=== PATIENT | female | born 1965 | race Caucasian/White ===

== ENCOUNTER 2018-06-27 13:07 | Inpatient (IN) ==
[2018-06-27] MEDS ORDERED: IOPAMIDOL 100 ML BOTTLE IV ONE (13:08)
[2018-06-27] MEDS ORDERED: ONDANSETRON 4 MG/2 ML VIAL IV ONE (13:32)
[2018-06-27] MEDS ORDERED: 0.9 % SODIUM CHLORIDE 1,000 ML IV ONE (13:33)
[2018-06-27 14:28] LABS: ALT/SGPT 12 U/l (0-40); Albumin 2.7 gm/dL (3.2-5.2); Albumin/Globulin Ratio 0.5 (1.0-2.3); Alkaline Phosphatase 139 U/L (39-117); Blood Urea Nitrogen 12 mg/dl (6-20); C-Reactive Protein 18.9 mg/dl (0.0-0.8)
--- NOTE | 2018-06-27 14:56 | Cat Scan Report ---
CLINICAL INFORMATION: Bladder full ulcer over the second metatarsal head COMPARISON: None. TECHNIQUE: 0.625 mm helical slices were obtained through the left foot and ankle. Following reconstruction, 2.50 sagittal coronal axial reformatted images were processed and reviewed at bone and soft tissue windows. FINDINGS: There is a 16 mm plantar cutaneous ulceration in the second metatarsal head region which extends through all the plantar soft tissues the second MTP joint region. A 12 mm region of complete osteolysis last fragmentation of the second proximal phalanx base with a 8 mm focal erosion of the plantar second metatarsal head both compatible osteomyelitis. Probable septic arthritis of the second MTP joint demonstrates effusion and small amount of intra-articular gas. No other regions of infection appreciated. Mild deformity of the third proximal phalanx indicating a fracture - age indeterminate. Small remote avulsion fracture off the dorsal cortex of the talar neck is noted. There is calcification of the plantar and Achilles tendon insertion on the calcaneus. Mild hallux valgus, metatarsus abductus and hammertoe deformities of second through fifth digits also noted. Diffuse soft tissue swelling around the forefoot, including small amounts of gas in the deep fascia surrounding the second MTP, is compatible cellulitis IMPRESSION: 1. 12 mm focus of osteolysis in the second proximal phalanx base with 8 mm focus of osteolysis in the plantar surface of the adjacent second metatarsal head most compatible with osteomyelitis. It is adjacent to a 16 mm cutaneous plantar ulcer which extends all the way to the second MTP joint space. Second MTP septic arthritis is noted and diffuse forefoot cellulitis. Gas seen in the adjacent soft tissues either atmospheric or, less likely, due to anaerobic infection. 2. Fracture of the third proximal phalanx likely chronic 3. Diffuse osteoporosis 4. Moderate hallux valgus, metatarsus abductus and second through fifth hammertoe deformities. Interpreted and Authenticated by: Wilber Campos 06/27/18
--- NOTE | 2018-06-27 15:04 | Emergency Department Note ---
Extremity Problem HPI - General Chief complaint: Extremity Problem,Nontraumatic Stated complaint: Left foot ulcer Time Seen by Provider: 06/27/18 13:30 Source: patient Mode of arrival: ambulatory Limitations: no limitations - History of Present Illness HPI Narrative: 52-year-old female in ED with present. Patient originally stepped on a tack (left foot between great toe and 2nd phalanx) approximately four to four an half weeks ago. Patient did not notice infection had begun until 2 to 2 an half weeks ago this is when she began seen Dr. Espinoza. Patient has been followed by Dr. Espinoza who began treating left foot for infection with antibiotics and debridement, the patient returned and it appeared that infection was spreading. X-ray was taken at that time and debridement (3rd debridement occurred) went from bottom to top of foot and flushed straight through. 3 days after that patient returned and was started on a second dose of antibiotics Cipro/ clindamycin. Patient then returned 3 days later the infection is now in her great toe and spreading up the foot. Dr. Trammell advised patient to come to [facility] and have Dr. Chu assess her infection. Patient is diabetic with insulin dependence uncontrolled, and takes citalopram for depression. Patient is obese. Patient is allergic to Dilaudid. Patient does have past history of being on vancomycin 3 years ago for left foot infection at that time. MD Complaint: extremity pain, extremity swelling, joint swelling, joint paint Onset (ago): month(s) (1) Consistency: constant Location: left, lower extremity (foot) Quality: stabbing (great toe) Radiation: none Improves with: nothing Associated symptoms: Reports: denies other symptoms - Related Data Home Medications Medication Instructions Recorded Confirmed Escitalopram [Lexapro] 20 mg PO DAILY 06/27/18 06/27/18 Glimepiride [Amaryl] 2 mg PO DAILY 06/27/18 06/27/18 Insulin Glargine, Human [Lantus] 30 unit SQ BID 06/27/18 06/27/18 Lisinopril [Zestril] 20 mg PO DAILY 06/27/18 06/27/18 buPROPion [Wellbutrin Xl] 150 mg PO DAILY 06/27/18 06/27/18 Allergies Allergy/AdvReac Type Severity Reaction Status Date / Time Hydromorphone [From Dilaudid] Allergy Verified 06/27/18 13:08 Review of Systems All systems ED: reviewed and negative except as stated. 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 Patient is and lives at home with . Physical Exam Limitations: no limitations General appearance: alert, in no apparent distress Head: atraumatic, normocephalic, normal inspection Eye: Present: normal appearance, PERRL. Absent: conjunctival injection ENT: normal exam, normal oropharynx, mucous membranes moist, normal external ear exam Neck: Present: normal inspection. Absent: tenderness, lymphadenopathy Chest: Present: normal inspection, symmetric chest wall rise. Absent: tenderness Respiratory: Present: normal lung sounds bilaterally. Absent: respiratory distress, rales/crackles, wheezes Cardiovascular: Present: regular rate, normal rhythm Foot/toe: Present: other (left foot open wound 4 cm in between great toe and second phalanx, open for debridement. Pustule drainage, pink tissue with granulation. Great toe with erythema also open areas draining pustule fluid increased edema to great toe.) Gait: not tested/not observed Back: Present: normal inspection Neurological: Present: alert, oriented X3, normal gait Psychiatric: Present: normal affect, normal mood. Absent: depressed, agitated, anxious Skin: Present: warm, dry, intact, normal color, other (see extremity). Absent: cyanosis, diaphoresis, erythema Course Vital Signs Temperature 97.6 F 06/27/18 13:11 Pulse Rate 77 06/27/18 13:11 Respiratory Rate 18 06/27/18 13:11 Blood Pressure 127/82 06/27/18 13:11 Pulse Oximetry (%) 91 06/27/18 13:11 Temperature 97.6 F 06/27/18 13:11 Pulse Rate 74 06/27/18 15:00 Respiratory Rate 18 06/27/18 13:11 Blood Pressure 110/65 06/27/18 14:49 Pulse Oximetry (%) 96 06/27/18 15:00 Extremity Problem, Nontraumati - [facility] Narrative Medical decision making narrative: Dr. Trammell referred Dr. Chu to this case, consulted Dr. Chu who graciously accepted seeing patient after clinic hours. Consulted Dr. Castellon who accepted to begin inpatient workup until was able to access. - Lab Data Lab results reviewed: Yes I reviewed the patient's lab results. Result diagrams: 06/27/18 14:37 06/27/18 13:36 Lab Results 06/27/18 06/27/18 06/27/18 Range/Units 13:36 13:37 13:40 POC Hct 43.0 (36.0-48.0) % Band Neutrophils % ESR 98 H (0-20) mm/hr VBG Lactic Acid 1.4 (0.5-2.2) mmol/L POC Sodium 138 (133-145) mmol/L Sodium 135 (133-145) mmol/L POC Potassium 4.2 (3.3-5.1) mmol/L Potassium 4.3 (3.3-5.1) mmol/L POC Chloride 100 (96-108) mmol/L Chloride 97 (96-108) mmol/L Carbon Dioxide 25 (22-30) mmol/L POC Total CO2 27 (22-30) mmol/L Anion Gap 13.0 (8-16) POC BUN 13 (6-20) mg/dl BUN 12 (6-20) mg/dl Creatinine 0.8 (0.6-1.1) mg/dl POC Creatinine 0.7 (0.6-1.1) mg/dl GFR Calculation 84 Glucose 282 H (70-105) mg/dL POC Glucose 292 H (70-105) mg/dL Calcium 8.5 L (8.6-10.4) mg/dl POC WB Ioniz Calcium 1.06 L (1.16-1.32) mmol/L Total Bilirubin 0.3 (0.0-1.0) mg/dL AST 14 (0-37) U/l ALT 12 (0-40) U/l Alkaline Phosphatase 139 H (39-117) U/L C-Reactive Protein 18.9 H (0.0-0.8) mg/dl Total Protein 7.9 (5.9-8.4) gm/dL Albumin 2.7 L (3.2-5.2) gm/dL Globulin 5.2 H (2.2-3.7) gm/dL Albumin/Globulin Ratio 0.5 L (1.0-2.3) 06/27/18 Range/Units 14:37 POC Hct (36.0-48.0) % Band Neutrophils % Not Reportable ESR (0-20) mm/hr VBG Lactic Acid (0.5-2.2) mmol/L POC Sodium (133-145) mmol/L Sodium (133-145) mmol/L POC Potassium (3.3-5.1) mmol/L Potassium (3.3-5.1) mmol/L POC Chloride (96-108) mmol/L Chloride (96-108) mmol/L Carbon Dioxide (22-30) mmol/L POC Total CO2 (22-30) mmol/L Anion Gap (8-16) POC BUN (6-20) mg/dl BUN (6-20) mg/dl Creatinine (0.6-1.1) mg/dl POC Creatinine (0.6-1.1) mg/dl GFR Calculation Glucose (70-105) mg/dL POC Glucose (70-105) mg/dL Calcium (8.6-10.4) mg/dl POC WB Ioniz Calcium (1.16-1.32) mmol/L Total Bilirubin (0.0-1.0) mg/dL AST (0-37) U/l ALT (0-40) U/l Alkaline Phosphatase (39-117) U/L C-Reactive Protein (0.0-0.8) mg/dl Total Protein (5.9-8.4) gm/dL Albumin (3.2-5.2) gm/dL Globulin (2.2-3.7) gm/dL Albumin/Globulin Ratio (1.0-2.3) - Radiology Data Radiology results reviewed: Yes I reviewed the patient's radiology results. 1. 12 mm focus of osteolysis in the second proximal phalanx base with 8 mm focus of osteolysis in the plantar surface of the adjacent second metatarsal head most compatible with osteomyelitis. It is adjacent to a 16 mm cutaneous plantar ulcer which extends all the way to the second MTP joint space. Second MTP septic arthritis is noted and diffuse forefoot cellulitis. Gas seen in the adjacent soft tissues either atmospheric or, less likely, due to anaerobic infection. 2. Fracture of the third proximal phalanx likely chronic 3. Diffuse osteoporosis 4. Moderate hallux valgus, metatarsus abductus and second through fifth hammertoe deformities. Disposition Pt seen by PRODUCTION CONTROL SUPERVISOR/PA only: No (Chin) Clinical Impression: Osteomyelitis of foot, left, acute Disposition: Xfer As Inpt ([facility]) Condition: Fair Referrals: Yvonne Palm MD [Primary Care Provider] - Time of Disposition: 15:41
[2018-06-27 15:50] LABS: Mean Corpuscular HGB Conc 34.7 g/dL (31.0-36.0); Mean Corpuscular Hemoglobin 28.1 pg (26.0-34.0); Platelet Count 287 K/mcL (140-440); RBC 4.54 M/mcL (4.00-5.20); Red Cell Distribution Width 13.5 % (11.5-14.5)
[2018-06-27 15:54] LABS: Band Neutrophils % 6 % (0-10); Basophils % (Manual) 1 % (0-2); Lymphocytes % 11 % (15-49); Monocytes % (Manual) 8 % (1-12); Platelet Estimate NORMAL (NORMAL); RBC Morphology NORMAL (NORMAL); Segmented Neutrophils % 74 % (38-78)
--- NOTE | 2018-06-27 16:05 | Emergency Department Note ---
ED Note Addendum Note Addendum: Wound examined and laboratory tests reviewed and agree with diagnosis Dr. Cardenas contacted by Erika patient to be admitted for further evaluation and treatment
[2018-06-27] MEDS ORDERED: NALOXONE HCL 0.4 MG/ML VIAL IV PRN (16:08)
[2018-06-27] MEDS ORDERED: ALBUTEROL SULFATE 2.5 MG/3 ML NEBULIZER NEB PRN (16:08)
[2018-06-27] MEDS ORDERED: DEXTROSE 31 GM ORAL.SUSP PO PRN (16:15)
[2018-06-27] MEDS ORDERED: DEXTROSE 50% 50 ML VIAL IV PRN (16:15)
[2018-06-27] MEDS ORDERED: VANCOMYCIN PER PHARMACY IV SCH (16:24)
--- NOTE | 2018-06-27 16:24 | Internal Med History&Physical ---
Medical - H&P: HPI Patient information: Note initiated : 06/27/18 at 4:16 pm Service Date, if different from initiated Date: [] Patient: Francesca Leon a 52 y/o F admitted on 06/27/18 for Left foot ulcer. Chief Complaint: [] History of present illness: Ms. Leon is a 52 year old F with h/o Dm, presents to the ER today with complaints of left foot pain. The patient notes approximately 6 weeks ago she stepped on attack, resulting in a puncture wound. Initially they were trying to clean the wound by local wound care, the patient's wound progressed and the patient was followed by Dr. Bender, The patient according to the aviation electronic warfare operator was walking with a tack in her shoe. The patient wound progressively got worse, with increasing redness swelling, increased smell. patient underwent debridement at his office, and was placed on doxycycline and ciprofloxacin, the patient notes that this did not help much and the swelling, infection continued to persist, the patient was started on clindamycin on 06/15/18. The patient on her follow up noted no significant improvement with worsening redness, discharge, patient was therefore asked to come to the hospital for IV antibiotics. The patient is accompanied by her , notes has DM, uncontrolled last a1c was 14. According to the notes of Dr Bender, pt has h/o MRSA Patient in the ER afebrile, HR 77, BP 111/68. 91% on RA Labs show WBC count of 16,800, hemoglobin 12.8 platelets 287. basic neg, glucose elevated to 282. ESR 98 CRP 18.9 and lactic acid is 1.4. Patient clinically appears quite stable is being admitted to the medical floor for further management. Dr Chu has been consulted who will be there to evaluate the patient. I spone with him and he will be here after clinic hours. The CT scan of the foot reviewed, there is gas noted in the tissues however the patient has an open ulcer and has had instrumentation done recently. She does have significant cellulitis positive drainage at this point. And is going to be evaluated by the surgeon soon. I do not believe that this is necrotizing fasciitis at this time given her hemodynamic stability and recent instrumentation which could easily explain the gas. She does have necrotizing soft tissue infection. All systems: reviewed and no additional remarkable complaints except as stated ( as per HPI rest negative) Medical - H&P: PM Medical history: Morbid obesity HTN HLD DM Surgical history: Cholecystectomy Pertinent family history: DM mother and sister Social history: smoker, quit 1 week ago ex etoh denies recretional drug use lives with . Medical - H&P: Meds Home Medications Medication Instructions Recorded Confirmed Type Escitalopram [Lexapro] 20 mg PO DAILY 06/27/18 06/27/18 History Glimepiride [Amaryl] 2 mg PO DAILY 06/27/18 06/27/18 History Insulin Glargine, Human [Lantus] 30 unit SQ BID 06/27/18 06/27/18 History Lisinopril [Zestril] 20 mg PO DAILY 06/27/18 06/27/18 History buPROPion [Wellbutrin Xl] 150 mg PO DAILY 06/27/18 06/27/18 History Allergies Allergy/AdvReac Type Severity Reaction Status Date / Time Hydromorphone [From Dilaudid] Allergy Verified 06/27/18 13:08 Medical - H&P: Exam - Constitutional Vitals: Temp Pulse Resp BP Pulse Ox 97.6 F 77 18 97/85 96 06/27/18 13:11 06/27/18 15:50 06/27/18 13:11 06/27/18 15:41 06/27/18 15:50 Exam: GENERAL: The patient is a well-developed, well-nourished in no apparent distress. Is alert and oriented x3. Morbidly obese VITAL SIGNS: Reviewed and as noted elsewhere. HEENT: Head is normocephalic and atraumatic. Extraocular muscles are intact. Pupils are equal, round, and reactive to light. Nares appeared normal. Mouth appears any without lesions. Mucous membranes are moist. NECK: Normal to inspection, Supple, No lymphadenopathy or thyromegaly. LUNGS: Air entry equal on both sides, no wheezing, crackles or rhonchi noted. No accessory muscles of respiration HEART: Regular rate and rhythm normal, S1 and S2 heard, no Gallop, S3 or Rub Noted, No Gross murmur heard. ABDOMEN: Soft, nontender, and nondistended. Positive bowel sounds. No hepatosplenomegaly was noted. EXTREMITIES: No cyanosis, clubbing, rash, lesions or edema. Left foot, edematous toes, erythema, open ulcer/ Surgical cut between first and second toe , 1st MT joint draining pus. putrid discharge. NEUROLOGIC: Cranial nerves II through XII are grossly intact. Motor and Sensory System Grossly Intact PSYCHIATRIC: Normal affect, Normal Mood. Appropriate Behavior. SKIN: No ulceration or wounds noted, No jaundice, No rash noted. Medical - H&P: Reslt - Labs CBC & Chem 7: 06/27/18 14:37 06/27/18 13:36 Labs: Short CBC 06/27/18 Range/Units 14:37 WBC 16.8 H (4.5-11.0) K/mcL Hgb 12.8 (12.0-15.0) g/dL Hct 36.8 (36.0-48.0) % Plt Count 287 (140-440) K/mcL BMP 06/27/18 13:36 Sodium 135 Potassium 4.3 Chloride 97 Carbon Dioxide 25 BUN 12 Creatinine 0.8 Glucose 282 H Calcium 8.5 L Liver Function 06/27/18 Range/Units 13:36 Total Bilirubin 0.3 (0.0-1.0) mg/dL AST 14 (0-37) U/l ALT 12 (0-40) U/l Alkaline Phosphatase 139 H (39-117) U/L Albumin 2.7 L (3.2-5.2) gm/dL Medical - H&P: A/P - Narrative A/P Narrative: A/P Diabetic, necrotizing soft tissue infection with acute osteomyelitis- CT reviewed, Podiatry consulted, Likely surgery in AM, pt is hemodynamically stable , has not responded to oral antibiotics, doxy and cipro initially and then nearly 12-13 days of oral clindamycin. Start with IV vancomycin and zosy ID to be consulted, Podiatry consulted. will likely need surgical debridement. Try to obtain culture reports DM uncontrolled - Check A1c, resume latnus and ssi insulin for glucose control HTN- resume home dosee of lisnoipril Depression/Anxiety- Resume citalopram/ buspirone DVT hep sq Diet carb consistent Ful code
--- NOTE | 2018-06-27 16:56 | Event Note ---
Full note to follow tomorrow Pt consulted this afternoon. Concerns for puncture wound associated osteomyelitis (Ct findings, elev ESR and CRP, failure to response to PO therapy) CT foot showed: "12 mm focus of osteolysis in the second proximal phalanx base with 8 mm focus of osteolysis in the plantar surface of the adjacent second metatarsal head most compatible with osteomyelitis. It is adjacent to a 16 mm cutaneous plantar ulcer which extends all the way to the second MTP joint space. Second MTP septic arthritis is noted and diffuse forefoot cellulitis. Gas seen in the adjacent soft tissues either atmospheric or, less likely, due to anaerobic infection. Fracture of the third proximal phalanx likely chronic" Agree with surgical eval Start IV Vanc with pharmacy-assisted dosing Start IV Zosyn 4.5 gm q6 hrs will deescalate once Cx data available Romario Domingo MD Infectious diseases
[2018-06-27] MEDS: INSULIN LISPRO 1 UNIT/0.01 ML UNIT SQ SCH ×2 (17:42→21:32)
[2018-06-27] MEDS: VANCOMYCIN 1,500 MG in 0.9 % SODIUM CHLORIDE 500 ML IV SCH (17:44)
[2018-06-27] MEDS ORDERED: PIPERACILLIN SODIUM/TAZOBACTAM 3.375 GM in DEXTROSE 5% IN WATER 50 ML IV SCH (18:00)
--- NOTE | 2018-06-27 18:00 | XRay Report ---
CLINICAL INFORMATION: preop COMPARISON: 12/18/2010. FINDINGS: Moderate cardiomegaly is unchanged. Mediastinum and pulmonary vessels are unremarkable. There is minor bibasilar scarring or atelectasis - no alfredo infiltrates or effusions IMPRESSION: Moderate stable cardiomegaly. No CHF or other acute process Interpreted and Authenticated by: Wilber Campos 06/27/18
[2018-06-27] MEDS: oxyCODONE HCL 5 MG TABLET PO PRN (19:28)
[2018-06-27] MEDS: PIPERACILLIN SODIUM/TAZOBACTAM 4.5 GM in DEXTROSE 5% IN WATER 50 ML IV SCH (19:28)
[2018-06-27] MEDS: HEPARIN 5,000 UNIT/ML VIAL SQ SCH (21:32)
[2018-06-27] MEDS: 0.9 % SODIUM CHLORIDE 10 ML SYRINGE IV SCH (21:33)
[2018-06-27] MEDS: INSULIN GLARGINE, HUMAN 1 UNIT/0.01 ML SQ SCH (21:33)
[2018-06-27] MEDS: SENNOSIDES 1 TABLET PO SCH (21:33)
[2018-06-28] MEDS: PIPERACILLIN SODIUM/TAZOBACTAM 4.5 GM in DEXTROSE 5% IN WATER 50 ML IV SCH ×5 (00:37→23:42)
[2018-06-28] MEDS: oxyCODONE HCL 5 MG TABLET PO PRN ×5 (00:43→23:41)
[2018-06-28] MEDS: ACETAMINOPHEN 325 MG TABLET PO PRN ×2 (05:38→19:23)
[2018-06-28] MEDS: 0.9 % SODIUM CHLORIDE 10 ML SYRINGE IV SCH ×3 (05:58→21:00)
[2018-06-28] MEDS: ONDANSETRON 4 MG/2 ML VIAL IV PRN (06:18)
[2018-06-28 06:38] LABS: Basophils # (Auto) 0.1 K/mcL (0.0-0.3); Basophils % (Auto) 0.4 % (0.0-2.0); Eosinophils # (Auto) 0.3 K/mcL (0.0-0.7); Eosinophils % (Auto) 2.2 % (0.0-7.0); Lymphocytes # (Auto) 1.5 K/mcL (1.5-4.8); Lymphocytes % (Auto) 9.9 % (15.5-49.0); Mean Cell Volume 84.1 fL (80.0-100.0); Mean Corpuscular HGB Conc 32.7 g/dL (31.0-36.0); Mean Corpuscular Hemoglobin 27.5 pg (26.0-34.0); Monocytes % (Auto) 6.5 % (1.0-12.0); Platelet Count 286 K/mcL (140-440); RBC 4.17 M/mcL (4.00-5.20); Red Cell Distribution Width 14.5 % (11.5-14.5)
[2018-06-28 07:10] LABS: ALT/SGPT 12 U/l (0-40); Albumin 2.6 gm/dL (3.2-5.2); Albumin/Globulin Ratio 0.6 (1.0-2.3); Alkaline Phosphatase 160 U/L (39-117); Bilirubin,Direct < 0.2 mg/dL (0.0-0.3); Blood Urea Nitrogen 13 mg/dl (6-20); Gamma Glutamyl Transpeptidase 16 U/L (5-36); Uric Acid 3.3 mg/dL (2.5-8.0)
--- NOTE | 2018-06-28 07:26 | Orthopedic History & Physical ---
History of Present Illness Patient information: Note initiated : 06/28/18 at 7:13 am Service Date, if different from initiated Date: [] Patient: Francesca Leon 52 y/o F admitted on 06/27/18 for Left foot ulcer. 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 6 week hx of first interspace infection thought to be a puncture wound after tack was found in pt's shoe, being treated by Dr Bender with woundcarea and oral antibiotics. Unfortunately, the foot has recently developed an fulminant infection with malodor, purulent drainage and erythema with calor extending from the first interspace including the second mpj over to the medial first with a second full thickness ulceration. The patient denies fever, nausea , chills and vomiting or night sweats. While the patient was being interviewed she began to vomit but feels this is from the anxiety from the information she was receiving from me. HPI: Ms. Leon is a 52 year old F see above Review of Systems Constitutional: as per HPI Past History Past medical history: DM with moderate neuropathy obesity HTN Past surgical history: cholecystecomy Past family history: mother and sister with DM Past social history: 10-15 pack year history no etoh or drugs Medications and Allergies Home Medications Medication Instructions Recorded Confirmed Type Escitalopram [Lexapro] 20 mg PO DAILY 06/27/18 06/27/18 History Glimepiride [Amaryl] 2 mg PO DAILY 06/27/18 06/27/18 History Insulin Glargine, Human [Lantus] 30 unit SQ HS 06/27/18 06/27/18 History Insulin Glargine, Human [Lantus] 40 unit SQ DAILY 06/27/18 06/27/18 History Lisinopril [Zestril] 20 mg PO DAILY 06/27/18 06/27/18 History buPROPion [Wellbutrin Xl] 150 mg PO DAILY 06/27/18 06/27/18 History Allergies Allergy/AdvReac Type Severity Reaction Status Date / Time Hydromorphone [From Dilaudid] Allergy Mild Rash Verified 06/27/18 16:36 Physical Examination - Ankle & Foot left Ankle appearance: swelling Foot appearance: erythema, other (bone probing infected ulceration of first interspace with marked malodor and drainage. bone probes to both first and second metatarsals midshafts. There is a full thickness ulceration on the medial side of the first MPJ. There is significant interspace tissue loss with atmospheric exposure. No crepitus is appreciated with pressure. The patient has sensory loss but feels pain in the foot with probing and palpation. The erythema and calor are localized to toes 1-4 and there is no streaking erythema) Foot swelling: dorsal (Pulses palpable with triphasic dopplers of both DP and PT arteries) Ankle pain worse with weight bearing: Yes Foot pain worse with weight bearing: Yes Foot pain relieved by non-weight bearing: Yes Tingling/Numbness: toes ROM: dorsiflexion: 30 degrees Results - Labs Result Diagrams: 06/28/18 04:28 06/28/18 04:28 Labs: Abnormal lab results 06/27/18 06/27/18 06/27/18 Range/Units 13:36 13:37 14:37 WBC 16.8 H (4.5-11.0) K/mcL Hgb (12.0-15.0) g/dL Hct (36.0-48.0) % MPV 10.6 H (7.4-10.4) fL Gran % (38.0-78.0) % Lymph % (Auto) (15.5-49.0) % Gran # (1.8-8.0) K/mcL [place] # (Auto) (0.1-0.9) K/mcL Lymphocytes % 11 L (15-49) % ESR 98 H (0-20) mm/hr Glucose 282 H (70-105) mg/dL POC Glucose 292 H (70-105) mg/dL Calcium 8.5 L (8.6-10.4) mg/dl POC WB Ioniz Calcium 1.06 L (1.16-1.32) mmol/L Phosphorus (2.7-4.5) mg/dL Alkaline Phosphatase 139 H (39-117) U/L C-Reactive Protein 18.9 H (0.0-0.8) mg/dl Albumin 2.7 L (3.2-5.2) gm/dL Globulin 5.2 H (2.2-3.7) gm/dL Albumin/Globulin Ratio 0.5 L (1.0-2.3) 06/28/18 06/28/18 Range/Units 04:28 04:28 WBC 15.1 H (4.5-11.0) K/mcL Hgb 11.4 L (12.0-15.0) g/dL Hct 35.0 L (36.0-48.0) % MPV (7.4-10.4) fL Gran % 81.0 H (38.0-78.0) % Lymph % (Auto) 9.9 L (15.5-49.0) % Gran # 12.2 H (1.8-8.0) K/mcL [place] # (Auto) 1.0 H (0.1-0.9) K/mcL Lymphocytes % (15-49) % ESR (0-20) mm/hr Glucose 52 L (70-105) mg/dL POC Glucose (70-105) mg/dL Calcium 8.4 L (8.6-10.4) mg/dl POC WB Ioniz Calcium (1.16-1.32) mmol/L Phosphorus 5.0 H (2.7-4.5) mg/dL Alkaline Phosphatase 160 H (39-117) U/L C-Reactive Protein (0.0-0.8) mg/dl Albumin 2.6 L (3.2-5.2) gm/dL Globulin 4.4 H (2.2-3.7) gm/dL Albumin/Globulin Ratio 0.6 L (1.0-2.3) H & H 06/27/18 06/28/18 Range/Units 14:37 04:28 Hgb 12.8 11.4 L (12.0-15.0) g/dL Hct 36.8 35.0 L (36.0-48.0) % All other labs normal. - Diagnostic results Ankle/Foot MRI: pending Ankle/Foot CT: report reviewed (i agree that the gas located in the first interspace is atmospheric. ) Assessment and Plan (1) Osteomyelitis of foot, left, acute Osteomyelitis of the left foot, first and second rays and possibly the third toe in diabetic with moderate neuropathy. I feel that the extent of this infection requires an MRI to determine if a partial first and second ray amputation will suffice or if a TMA will be required. MRI with and without contrast ordered. I will also have woundcare consulted for vascular studies and aid with probable wound care before after surgery. The pt and I discussed the nature of her severe foot infection and the need for the MRI. We discussed risks, alternatives, complications and course of the above amputation options and the possible need for further surgery. The wound was flushed with nss and betadine and a dsd was applied I will ask woundcare to perform this again today. Heel wb to bathroom and back left foot. Continue Vancomycin/Zosyn will follow wound culture taken yesterday in ER Surgery will be set for tomorrow morning. Status: Acute
[2018-06-28] MEDS: VANCOMYCIN 1,500 MG in 0.9 % SODIUM CHLORIDE 500 ML IV SCH ×2 (08:03→21:02)
[2018-06-28] MEDS: ESCITALOPRAM 20 MG TABLET PO SCH (10:52)
[2018-06-28] MEDS: buPROPion 150 MG TAB.XL.24H PO SCH (10:53)
[2018-06-28] MEDS: LISINOPRIL 20 MG TABLET PO SCH (10:53)
[2018-06-28] MEDS: HEPARIN 5,000 UNIT/ML VIAL SQ SCH ×2 (10:53→21:05)
[2018-06-28] MEDS: INSULIN LISPRO 1 UNIT/0.01 ML UNIT SQ SCH ×4 (10:54→21:48)
[2018-06-28] MEDS: INSULIN GLARGINE, HUMAN 1 UNIT/0.01 ML SQ SCH ×2 (10:54→21:06)
--- NOTE | 2018-06-28 12:38 | Magnetic Resonance Report ---
CLINICAL INFORMATION: Osteomyelitis - second ray. Evaluate extent COMPARISON: CT 06/27/2018. TECHNIQUE: Axial T1, T2, proton density, coronal proton density and sagittal T1 and proton density images were obtained the left foot and ankle. FINDINGS: There is severe osteolytic destruction of the second proximal phalanx epiphysis with increased signal extending into the the proximal one half of the diaphysis. There is also osteolytic destruction of the adjacent second metatarsal head with increased signal throughout the distal epiphysis and metaphysis. Findings compatible with osteomyelitis. Increased signal within the second MTP joint compatible with associated septic arthritis. No other regions of osteomyelitis appreciated throughout the foot and ankle. Marked thickening/enhancement and increased signal within the deep plantar fascial and also the dorsal fascia compatible with fasciitis. Moderate cellulitis in the plantar and dorsal subcutaneous soft tissues noted as well. 1.5 cm cutaneous ulceration overlying the second MTP joint has cellulitis extension through the plantar fascia to the second MTP joint. There is also a 3 x 2 cm fluid collection in the plantar fascia overlying the and adjacent to, the fifth MTP joint. No definite osteomyelitis or septic arthritis in this particular joint however. No other abnormality. IMPRESSION: Severe osteomyelitis involving the proximal half of the second proximal phalanx and also the adjacent fifth metatarsal head including the epiphysis and metaphysis. As noted on CT, there is actually osteolytic destruction of each regions. Septic arthritis the second MTP joint noted. There are no other regions of osteomyelitis throughout the foot or ankle. Severe plantar fasciitis and also cellulitis within the dorsal and plantar subcutaneous soft tissues of the forefoot. 3 mm cutaneous ulceration overlying the second MTP joint seen - as before 3 x 2 cm thin-walled fluid collection in the plantar fascia overlying the fifth MTP. Although it extends to the surface of the fifth MTP, there is no definite MRI evidence of osteomyelitis or septic arthritis. This may represent a sterile fluid collection such as a seroma or cyst. Interpreted and Authenticated by: Wilber Campos 06/28/18
--- NOTE | 2018-06-28 15:52 | Infectious Disease Consult ---
History of Present Illness Patient information: Note initiated : 06/28/18 at 3:45 pm Service Date, if different from initiated Date: [] Patient: Francesca Leon 52 y/o F admitted on 06/27/18 for Left Foot Ulcer. Chief Complaint: [] Consult date: 06/27/18 (Late evening) Requesting Physician: Liv Castellon Reason for Consult: Necrotizing soft tissue infection Chief complaint: I have a really bad wound on my foot History of present illness: 52-year-old lady with past medical history pertinent for: Type 2 diabetes, uncontrolled [not compliant with diet, physical activity] Peripheral neuropathy Patient was admitted on 06/27/18 with big nonhealing and worsening wound of left foot. All started about early May when patient by mistake stepped on a tack, followed by development of local wound infection with symptoms of redness, swelling, foul odor about 10 days later. Patient was seen by Dr. Bender who Did local debridement in his office and patient was placed on doxycycline initially and subsequently switched to ciprofloxacin because it did not get better and continued to get worse. She was switched to clindamycin on 06/15/18 because wound was continuing to worsen. Patient was asked to go to the hospital yesterday because of significant worsening of the wound and concerns that she may need IV antibiotics. Patient was afebrile in the ER with a normal heart rate and blood pressure setting 91% on room air. White cell count was 16.8 K with neutrophilic predominance, ESR 98, CRP 18.9, lactic acid 1.4, glucose 282. Patient was admitted to the [facility] unit and Dr. Chu was consulted for possible surgical evaluation. Patient had a CT scan of the foot done which showed: "12 mm focus of osteolysis in the second proximal phalanx base with 8 mm focus of osteolysis in the plantar surface of the adjacent second metatarsal head most compatible with osteomyelitis. It is adjacent to a 16 mm cutaneous plantar ulcer which extends all the way to the second MTP joint space. Second MTP septic arthritis is noted and diffuse forefoot cellulitis. Gas seen in the adjacent soft tissues either atmospheric or, less likely, due to anaerobic infection." Patient was started on IV vancomycin [pharmacy assisted monitoring] and IV Zosyn. Blood cultures and wound cultures were sent. At time of my visit today , patient had few episodes of vomiting in past 24 hours. She denied any fever, chills, diarrhea, left foot pain. She added that her blood sugars at home are uncontrolled and range around 300. She does take her diabetes medicines regularly. She denied any allergies to antibiotics. Review of Systems All systems PM: reviewed and no additional remarkable complaints except as stated Past History Past family history: Not pertinent to current presentation Past social history: Lives with her Smoker, quit 1 week ago Medications and Allergies Home Medications Medication Instructions Recorded Confirmed Type Escitalopram [Lexapro] 20 mg PO DAILY 06/27/18 06/27/18 History Glimepiride [Amaryl] 2 mg PO DAILY 06/27/18 06/27/18 History Insulin Glargine, Human [Lantus] 30 unit SQ HS 06/27/18 06/27/18 History Insulin Glargine, Human [Lantus] 40 unit SQ DAILY 06/27/18 06/27/18 History Lisinopril [Zestril] 20 mg PO DAILY 06/27/18 06/27/18 History buPROPion [Wellbutrin Xl] 150 mg PO DAILY 06/27/18 06/27/18 History Allergies Allergy/AdvReac Type Severity Reaction Status Date / Time Hydromorphone [From Dilaudid] Allergy Mild Rash Verified 06/27/18 16:36 Physical Examination Vital signs: Temp Pulse Resp BP Pulse Ox 36.3 C 66 15 131/72 93 06/28/18 12:00 06/28/18 12:00 06/28/18 12:00 06/28/18 12:00 06/28/18 12:00 General appearance: lethargic, appears uncomfortable Eyes pulmonary: nonicteric ENT: other (Has thrush) Neck: no lymphadenopathy Auscultation: bilateral: clear Cardiovascular: regular rate and rhythm Gastrointestinal: normoactive bowel sounds, soft, non-tender Extremities: other (Left foot: The forefoot appears swollen compared to the rest of the foot along with visible erythema. There is a big tunneling wound in between the great toe and the adjacent toe with foul-smelling order and visible pus with visible bone and tendons. Dorsalis pedis artery palpable) Results - Laboratory Findings CBC and BMP: 06/28/18 04:28 06/28/18 04:28 Abnormal lab findings: Abnormal Labs 06/27/18 06/27/18 06/27/18 13:36 13:37 14:37 WBC 16.8 H Hgb Hct MPV 10.6 H Gran % Lymph % (Auto) Gran # [place] # (Auto) Lymphocytes % 11 L ESR 98 H Glucose 282 H POC Glucose 292 H Calcium 8.5 L POC WB Ioniz Calcium 1.06 L Phosphorus Alkaline Phosphatase 139 H C-Reactive Protein 18.9 H Albumin 2.7 L Globulin 5.2 H Albumin/Globulin Ratio 0.5 L 06/28/18 06/28/18 04:28 04:28 WBC 15.1 H Hgb 11.4 L Hct 35.0 L MPV Gran % 81.0 H Lymph % (Auto) 9.9 L Gran # 12.[address] [place] # (Auto) 1.0 H Lymphocytes % ESR Glucose 52 L POC Glucose Calcium 8.4 L POC WB Ioniz Calcium Phosphorus 5.0 H Alkaline Phosphatase 160 H C-Reactive Protein Albumin 2.6 L Globulin 4.4 H Albumin/Globulin Ratio 0.6 L Microbiology: Microbiology 06/27/18 13:30 Blood Blood Culture - Preliminary 06/27/18 13:30 Blood Blood Culture - Preliminary 06/27/18 15:40 Foot - Left Gram Stain - Final 06/27/18 15:40 Foot - Left Wound Culture - Preliminary Strep agalactiae - (group b) Assessment and Plan - Narrative A/P Narrative: Assessment: 1. Complicated skin and soft tissue infection of the left foot with involvement of underlying bone and muscles at multiple levels: Preliminary wound cultures growing group B strep, which is in known pathogen in diabetic infections On IV vancomycin and Zosyn Waiting for surgery tomorrow morning 2. No sepsis 3. Uncontrolled diabetes with peripheral neuropathy Recommendations: Continue IV vancomycin [pharmacy assisted monitoring]. Check trough before the fourth dose [10-20] Continue IV Zosyn 4.5 g every 6 hours. If the cultures suggest no Pseudomonas , will de-escalate it to 3.375 g every 6 Strongly agree with surgical debridement tomorrow morning. If any clinical worsening happens tonight, would recommend patient undergoing urgent surgery. Send operative samples for Gram stain and culture sensitivity For optimal outcomes will need long-term diabetes control [random blood glucose less than 180] and smoking cessation Patient would need long-term antibiotics [4-6 weeks of IV] We will follow while inpatient Romario Domingo MD Infectious disease
[2018-06-28] MEDS ORDERED: LORazepam 0.5 MG TABLET PO ONE (16:24)
[2018-06-28] MEDS ORDERED: LORazepam 0.5 MG TABLET PO PRN (16:24)
--- NOTE | 2018-06-28 18:21 | Internal Med Progress Note ---
Medical - PN: Subj Patient information: Note initiated : 06/28/18 at 6:18 pm Service Date, if different from initiated Date: [] Patient: Francesca Leon a 52 y/o F admitted on 06/27/18 for Left Foot Ulcer. Chief Complaint: [] Interval history: Ms. Leon is a 52 year old F with h/o Dm, presents to the ER today with complaints of left foot pain. The patient notes approximately 6 weeks ago she stepped on attack, resulting in a puncture wound. Initially they were trying to clean the wound by local wound care, the patient's wound progressed and the patient was followed by Dr. Bender, The patient according to the embedded software engineer was walking with a tack in her shoe. The patient wound progressively got worse, with increasing redness swelling, increased smell. patient underwent debridement at his office, and was placed on doxycycline and ciprofloxacin, the patient notes that this did not help much and the swelling, infection continued to persist, the patient was started on clindamycin on 06/15/18. The patient on her follow up noted no significant improvement with worsening redness, discharge, patient was therefore asked to come to the hospital for IV antibiotics. The patient is accompanied by her , notes has DM, uncontrolled last a1c was 14. According to the notes of Dr Bender, pt has h/o MRSA Patient in the ER afebrile, HR 77, BP 111/68. 91% on RA Labs show WBC count of 16,800, hemoglobin 12.8 platelets 287. basic neg, glucose elevated to 282. ESR 98 CRP 18.9 and lactic acid is 1.4. Patient clinically appears quite stable is being admitted to the medical floor for further management. Dr Chu has been consulted who will be there to evaluate the patient. I spone with him and he will be here after clinic hours. The CT scan of the foot reviewed, there is gas noted in the tissues however the patient has an open ulcer and has had instrumentation done recently. She does have significant cellulitis positive drainage at this point. And is going to be evaluated by the surgeon soon. I do not believe that this is necrotizing fasciitis at this time given her hemodynamic stability and recent instrumentation which could easily explain the gas. She does have necrotizing soft tissue infection. 06/28 Patient seen and examined no acute overnight events. Wound was in dressing today. She has no acute complaints or concerns. Glucose level high yesterday better today. MRI done today shows severe osteomyelitis cellulitis. Likely plan for surgery tomorrow. Ongoing vancomycin and Zosyn appreciate podiatry and infectious disease input Pertinent ROS: Denies headache, dizziness Denies chest pain, palpitations Denies cough or shortness of breath Denies abdominal pain, nausea or vomiting. - Constitutional Vitals: Vital Signs Temp Pulse Resp BP Pulse Ox 97.1 F 74 17 128/75 95 06/28/18 15:58 06/28/18 15:58 06/28/18 15:58 06/28/18 15:58 06/28/18 15:58 Period Temp Pulse Resp BP Sys/Carrillo Pulse Ox Last 24 Hr 97.1 F-99.1 F 66-82 14-17 114-138/60-84 92-96 Intake and Output 06/28/18 06/28/18 06/28/18 05:59 13:59 21:59 Intake Total 780 / 780 550 / 550 500 / 500 Output Total 1200 / 1200 400 / 400 Balance -420 / -420 550 / 550 100 / 100 Weight 322 lb 8 oz Patient Weight 06/29/18 05:59 Weight 322 lb 8 oz Intake & Output: Intake & Output 06/28/18 06/28/18 06/28/18 05:59 13:59 21:59 Intake Total 780 / 780 550 / 550 500 / 500 Output Total 1200 / 1200 400 / 400 Balance -420 / -420 550 / 550 100 / 100 Weight 322 lb 8 oz Intake: IV 50 / 50 550 / 550 50 / 50 Zosyn 4.5 gm In Dextrose 5% in 50 / 50 50 / 50 50 / 50 Water 50 ml @ 100 mls/hr IV Q6H [facility] Rx#:[id number] Vancomycin 1,500 mg In Sodium 500 / 500 Chloride 0.9% 500 ml @ 333.3 mls/hr IV Q12H [facility] Rx#: [id number] Oral 730 / 730 450 / 450 Output: Void Amount 1200 / 1200 400 / 400 Other: Urine Appearance Clear Urine Color Dark Yellow Urine Odor Normal Exam: Constitutional; Afebrile, cooperative, alert, not in distress. morbidly obese Respiratory system: Air Entry equal on both sides, No crackles or wheezing, no rhonchi. CVS- Rate rhythm regular, S1,S2 heard, no gallop, no rub. Abdomen- Soft nontender abdomen, no organomegaly, no tenderness, no guarding or rigidity, TECHNICAL SUPPORT ANALYST- AOOx3, moving all extremities, no gross focal deficit noted. Medical - PN: Obj Da - Labs CBC & Chem 7: 06/28/18 04:28 06/28/18 04:28 Labs: Abnormal Lab Results 06/28/18 06/28/18 06/27/18 04:28 04:28 14:37 WBC 15.1 H 16.8 H Hgb 11.4 L Hct 35.0 L MPV 10.6 H Gran % 81.0 H Lymph % (Auto) 9.9 L Gran # 12.2 H [place] # (Auto) 1.0 H Lymphocytes % 11 L ESR Glucose 52 L POC Glucose Calcium 8.4 L POC WB Ioniz Calcium Phosphorus 5.0 H Alkaline Phosphatase 160 H C-Reactive Protein Albumin 2.6 L Globulin 4.4 H Albumin/Globulin Ratio 0.6 L 06/27/18 06/27/18 13:37 13:36 WBC Hgb Hct MPV Gran % Lymph % (Auto) Gran # [place] # (Auto) Lymphocytes % ESR 98 H Glucose 282 H POC Glucose 292 H Calcium 8.5 L POC WB Ioniz Calcium 1.06 L Phosphorus Alkaline Phosphatase 139 H C-Reactive Protein 18.9 H Albumin 2.7 L Globulin 5.2 H Albumin/Globulin Ratio 0.5 L Meds: Medications Acetaminophen (Tylenol) 650 mg PO Q6HP PRN PRN Reason: PAIN/FEVER > 101 Last Admin: 06/28/18 05:38 Dose: 650 mg Albuterol Sulfate (Ventolin) 2.5 mg NEB Q2HP PRN PRN Reason: Shortness Of Breath Bupropion HCl (Wellbutrin Xl) 150 mg PO DAILY [facility] Last Admin: 06/28/18 10:53 Dose: 150 mg Dextrose (Dextrose 50%) 0 ml IV UD PRN PRN Reason: Hypoglycemia Diagnostic Test (Pha) (Accu-Chek) 1 each FS ACHS [facility] Last Admin: 06/28/18 17:00 Dose: 1 each Escitalopram Oxalate (Lexapro) 20 mg PO DAILY [facility] Last Admin: 06/28/18 10:52 Dose: 20 mg Glucose (Insta-Glucose) 15 gm PO PRN PRN PRN Reason: Hypoglycemia Heparin Sodium (Porcine) (Heparin) 5,000 unit SQ Q12 [facility] Last Admin: 06/28/18 10:53 Dose: 5,000 unit Vancomycin HCl 1,500 mg/ (Sodium Chloride) 500 mls @ 333.3 mls/hr IV Q12H [facility] Last Infusion: 06/28/18 10:30 Dose: Infused Piperacillin Sod/Tazobactam (Sod 4.5 gm/ Dextrose) 50 mls @ 100 mls/hr IV Q6H [facility] Last Admin: 06/28/18 17:01 Dose: 100 mls/hr Insulin Glargine (Lantus) 30 unit SQ BID [facility] Last Admin: 06/28/18 10:54 Dose: 30 unit Insulin Human Lispro (Humalog) 0 unit SQ ACHS [facility]; Protocol Last Admin: 06/28/18 17:00 Dose: Not Given Lisinopril (Zestril) 20 mg PO DAILY [facility] Last Admin: 06/28/18 10:53 Dose: 20 mg Lorazepam (Ativan) 0.5 mg PO HSP PRN PRN Reason: ANXIETY/SEDATION Naloxone HCl (Narcan) 0.1 mg IV Q2MIN PRN PRN Reason: Opiate Reversal Ondansetron HCl (Zofran) 4 mg IV Q6HP PRN PRN Reason: Nausea And Vomiting Last Admin: 06/28/18 06:18 Dose: 4 mg Oxycodone HCl (Roxicodone) 5 mg PO Q4HP PRN PRN Reason: PAIN LEVEL 3-6 Last Admin: 06/28/18 14:22 Dose: 5 mg Senna (Senokot) 2 tab PO HS [facility] Last Admin: 06/27/18 21:33 Dose: 2 tab Sodium Chloride (Saline Flush) 10 ml IV Q8 [facility] Last Admin: 06/28/18 15:00 Dose: 10 ml Vancomycin HCl (Vancomycin Per Pharmacy) 1 order IV UD [facility] Medical - PN: A/P - Time Spent With Patient Total time spent is greater than 50% in coordination of care (as documented) at patient's floor/unit and/or counseling patient: - Narrative A/P Narrative: A/P Diabetic, necrotizing soft tissue infection with acute osteomyelitis- plan for surgery tomorrow, Dr Chu podiatry, Dr Domingo infectious disease following. DM uncontrolled - Check A1c, resume latnus and ssi insulin for glucose control HTN- resume home dosee of lisnoipril Depression/Anxiety- Resume citalopram/ buspirone DVT hep sq Diet carb consistent Ful code Medical - PN: Qual - VTE Deep Vein Thrombosis/Pulmonary Embolism Present on Admission: No
[2018-06-28] MEDS ORDERED: 0.45 % SODIUM CHLORIDE 1,000 ML IV SCH (20:15)
[2018-06-28] MEDS: SENNOSIDES 1 TABLET PO SCH (21:05)
[2018-06-29] MEDS: PIPERACILLIN SODIUM/TAZOBACTAM 4.5 GM in DEXTROSE 5% IN WATER 50 ML IV SCH ×4 (05:52→23:50)
[2018-06-29] MEDS: 0.9 % SODIUM CHLORIDE 10 ML SYRINGE IV SCH ×3 (05:53→21:00)
[2018-06-29 06:35] LABS: Basophils # (Auto) 0.1 K/mcL (0.0-0.3); Basophils % (Auto) 0.5 % (0.0-2.0); Eosinophils # (Auto) 0.4 K/mcL (0.0-0.7); Eosinophils % (Auto) 2.8 % (0.0-7.0); Granulocytes % (Auto) 75.7 % (38.0-78.0); Lymphocytes # (Auto) 1.8 K/mcL (1.5-4.8); Mean Cell Volume 84.6 fL (80.0-100.0); Mean Corpuscular HGB Conc 32.2 g/dL (31.0-36.0); Mean Corpuscular Hemoglobin 27.3 pg (26.0-34.0); Monocytes # (Auto) 0.9 K/mcL (0.1-0.9); Platelet Count 288 K/mcL (140-440); RBC 4.07 M/mcL (4.00-5.20); Red Cell Distribution Width 14.6 % (11.5-14.5)
[2018-06-29] MEDS: INSULIN LISPRO 1 UNIT/0.01 ML UNIT SQ SCH ×4 (07:29→20:50)
[2018-06-29 07:55] LABS: ALT/SGPT 16 U/l (0-40); Albumin 2.4 gm/dL (3.2-5.2); Albumin/Globulin Ratio 0.5 (1.0-2.3); Alkaline Phosphatase 161 U/L (39-117); Bilirubin,Direct < 0.2 mg/dL (0.0-0.3); Blood Urea Nitrogen 19 mg/dl (6-20); Gamma Glutamyl Transpeptidase 21 U/L (5-36); Uric Acid 4.5 mg/dL (2.5-8.0)
[2018-06-29] MEDS ORDERED: 0.9 % SODIUM CHLORIDE 1,000 ML IV ONE ×3 (08:00→15:02)
[2018-06-29] MEDS ORDERED: DEXTROSE 5%-1/2NS W/20MEQ KCL 1,000 ML IV SCH (08:00)
[2018-06-29 08:21] LABS: Estimated Average Glucose(eAG) 341 mg/dL; Hemoglobin A1C 13.5 % HGB (4.0-6.0)
[2018-06-29 09:11] LABS: Appearance,Urine CLEAR; Bacteria,Urine FEW /hpf (0); Bilirubin,Urine NEG (NEG); Color,Urine YELLOW; Glucose,Urine (UA) NEGATIVE (NEG); Leukocyte Esterase,Urine NEG /uL (NEG); Protein,Urine NEG (NEG); Urine Blood 0.03 mg/dL (<0.03); Urine RBC 1 /hpf (0-1); Urine Squamous Epithelial Cell 9 /hpf (0-4); Urine WBC 1 /hpf (0-4); Urobilinogen,Urine NEG (NEG)
[2018-06-29] MEDS: INSULIN GLARGINE, HUMAN 1 UNIT/0.01 ML SQ SCH (09:31)
[2018-06-29] MEDS: HEPARIN 5,000 UNIT/ML VIAL SQ SCH ×2 (09:31→21:00)
[2018-06-29] MEDS ORDERED: KETAMINE 100 MG/ML ML IV ONE (10:00)
[2018-06-29] MEDS ORDERED: fentaNYL 100 MCG/2 ML VIAL IV ONE (10:00)
[2018-06-29] MEDS ORDERED: MIDAZOLAM 5 MG/5 ML VIAL IV ONE (10:00)
[2018-06-29] MEDS ORDERED: GENTAMICIN SULFATE 800 MG/20 ML VIAL IR ONE (10:05)
[2018-06-29] MEDS ORDERED: BACITRACIN 50,000 UNIT VIAL IR ONE (10:05)
[2018-06-29] MEDS ORDERED: ePHEDrine 50 MG/ML AMPUL IV PRN (10:33)
[2018-06-29] MEDS: ONDANSETRON 4 MG/2 ML VIAL IV PRN (10:33)
[2018-06-29] MEDS ORDERED: IPRATROPIUM/ALBUTEROL 3 ML AMPUL.NEB NEB PRN (10:33)
[2018-06-29] MEDS ORDERED: ONDANSETRON 4 MG/2 ML VIAL IV PRN ×2 (10:33→11:35)
[2018-06-29] MEDS ORDERED: diphenhydrAMINE 50 MG/ML VIAL IV PRN (10:33)
[2018-06-29] MEDS ORDERED: ATROPINE SULFATE 0.4 MG/ML VIAL IV PRN (10:33)
[2018-06-29] MEDS ORDERED: METHOCARBAMOL 1,000 MG/10 ML VIAL IV PRN (10:33)
[2018-06-29] MEDS: fentaNYL 100 MCG/2 ML VIAL IV PRN ×2 (10:44→10:58)
[2018-06-29] MEDS ORDERED: LACTATED RINGERS 1,000 ML IV SCH (10:45)
[2018-06-29] MEDS ORDERED: DEXTROSE 31 GM ORAL.SUSP PO PRN (11:35)
[2018-06-29] MEDS ORDERED: NALOXONE HCL 0.4 MG/ML VIAL IV PRN (11:35)
[2018-06-29] MEDS ORDERED: ACETAMINOPHEN 325 MG TABLET PO PRN (11:35)
[2018-06-29] MEDS ORDERED: DEXTROSE 50% 50 ML VIAL IV PRN (11:35)
[2018-06-29] MEDS ORDERED: LORazepam 0.5 MG TABLET PO PRN (11:35)
[2018-06-29] MEDS ORDERED: VANCOMYCIN PER PHARMACY IV SCH (11:35)
[2018-06-29] MEDS ORDERED: ALBUTEROL SULFATE 2.5 MG/3 ML NEBULIZER NEB PRN (11:35)
[2018-06-29] MEDS: oxyCODONE HCL 5 MG TABLET PO PRN ×2 (11:50→19:34)
[2018-06-29] MEDS ORDERED: LIDOCAINE 2% 20 ML VIAL SQ ONE (11:53)
[2018-06-29] MEDS ORDERED: BUPIVACAINE PF 0.5% 30 ML VIAL IJ ONE (11:53)
[2018-06-29] MEDS ORDERED: HYDROGEN PEROXIDE TOPICAL PRN (12:04)
[2018-06-29] MEDS: buPROPion 150 MG TAB.XL.24H PO SCH (12:05)
[2018-06-29] MEDS: LISINOPRIL 20 MG TABLET PO SCH (12:05)
[2018-06-29] MEDS: VANCOMYCIN 1,500 MG in 0.9 % SODIUM CHLORIDE 500 ML IV SCH (12:06)
[2018-06-29] MEDS: ESCITALOPRAM 20 MG TABLET PO SCH (12:06)
--- NOTE | 2018-06-29 14:16 | Infectious Disease Prog Note ---
Subjective Patient information: Note initiated : 06/29/18 at 2:13 pm Service Date, if different from initiated Date: [] Patient: Francesca Leon 52 y/o F admitted on 06/27/18 for Left Foot Ulcer. Chief Complaint: [] Interval history: Pt doing fine. Is NPO for surgery today. Objective Objective Narrative: Rt foot wrapped in dressing ao x 3, in nad - Vital Signs Vital signs: Vital Signs Temp Pulse Resp BP BP Pulse Ox 06/29/18 12:00 36.6 C 81 16 109/73 97 06/29/18 11:05 35.7 C L 85 16 139/82 92 06/29/18 10:55 36.0 C L 88 20 134/79 92 06/29/18 10:45 36.2 C 85 16 147/83 90 06/29/18 10:35 36.1 C 89 16 142/79 92 06/29/18 10:30 87 16 165/96 92 06/29/18 10:25 84 16 148/42 99 06/29/18 10:20 37.1 C 87 16 133/81 98 06/29/18 06:34 36.3 C 76 18 103/61 97 06/29/18 04:00 36.5 C 82 18 99/59 95 06/29/18 00:09 96 06/29/18 00:01 37.0 C 74 20 100/66 88 L 06/28/18 20:00 37.2 C 78 18 101/63 92 06/28/18 15:58 36.2 C 74 17 128/75 95 Intake and Output 06/29/18 06/29/18 06/29/18 05:59 13:59 21:59 Intake Total 750 / 750 1700 / 1700 Output Total 200 / 200 400 / 400 Balance 550 / 550 1300 / 1300 Intake: IV 50 / 50 50 / 50 Zosyn 4.5 gm In Dextrose 5% in 50 / 50 50 / 50 Water 50 ml @ 100 mls/hr IV Q6H [facility] Rx#:[id number] Oral 700 / 700 IV - Manual Only 1650 / 1650 Output: Void Amount 200 / 200 Estimated Blood Loss 400 / 400 Other: Meal HS snack 0 Percent of Meal Consumed 100% Feeding Ability Independent Urine Color Straw Straw Urine Odor Normal Normal # Voids 1 Intake & Output: Intake & Output 06/29/18 06/29/18 06/29/18 05:59 13:59 21:59 Intake Total 750 / 750 1700 / 1700 Output Total 200 / 200 400 / 400 Balance 550 / 550 1300 / 1300 Intake: IV 50 / 50 50 / 50 Zosyn 4.5 gm In Dextrose 5% in 50 / 50 50 / 50 Water 50 ml @ 100 mls/hr IV Q6H [facility] Rx#:[id number] Oral 700 / 700 IV - Manual Only 1650 / 1650 Output: Void Amount 200 / 200 Estimated Blood Loss 400 / 400 Other: Meal HS snack 0 Percent of Meal Consumed 100% Feeding Ability Independent Urine Color Straw Straw Urine Odor Normal Normal # Voids 1 - Lab 06/29/18 04:30 06/29/18 04:30 Most recent lab results Calcium 8.3 mg/dl (8.6-10.4) L 06/29/18 04:30 Phosphorus 5.9 mg/dL (2.7-4.5) H 06/29/18 04:30 Magnesium 2.1 mg/dL (1.6-2.5) 06/29/18 04:30 Microbiology 06/27/18 15:40 Foot - Left Gram Stain - Final 06/27/18 15:40 Foot - Left Wound Culture - Final Strep agalactiae - (group b) 06/27/18 13:30 Blood Blood Culture - Preliminary 06/27/18 13:30 Blood Blood Culture - Preliminary Medications Active Medications: Acetaminophen (Tylenol) 650 mg PO Q6HP PRN PRN Reason: PAIN/FEVER > 101 Albuterol Sulfate (Ventolin) 2.5 mg NEB Q2HP PRN PRN Reason: Shortness Of Breath Bupropion HCl (Wellbutrin Xl) 150 mg PO DAILY [facility] Dextrose (Dextrose 50%) 0 ml IV UD PRN PRN Reason: Hypoglycemia Diagnostic Test (Pha) (Accu-Chek) 1 each FS ACHS [facility] Last Admin: 06/29/18 12:04 Dose: 1 each Escitalopram Oxalate (Lexapro) 20 mg PO DAILY [facility] Glucose (Insta-Glucose) 15 gm PO PRN PRN PRN Reason: Hypoglycemia Heparin Sodium (Porcine) (Heparin) 5,000 unit SQ Q12 [facility] Hydrogen Peroxide/Benzyl Alcohol (Hydrogen Peroxide) 474 ml TOPICAL UD PRN PRN Reason: DRESSING CHANGES Piperacillin Sod/Tazobactam (Sod 4.5 gm/ Dextrose) 50 mls @ 100 mls/hr IV Q6H [facility] Last Admin: 06/29/18 12:04 Dose: 100 mls/hr Insulin Glargine (Lantus) 30 unit SQ BID [facility] Insulin Human Lispro (Humalog) 0 unit SQ ACHS [facility]; Protocol Lisinopril (Zestril) 20 mg PO DAILY [facility] Lorazepam (Ativan) 0.5 mg PO HSP PRN PRN Reason: ANXIETY/SEDATION Morphine Sulfate (Morphine) 2 mg IV Q2HP PRN PRN Reason: PAIN LEVEL > 6 Last Admin: 06/29/18 12:41 Dose: 2 mg Naloxone HCl (Narcan) 0.1 mg IV Q2MIN PRN PRN Reason: Opiate Reversal Ondansetron HCl (Zofran) 4 mg IV Q6HP PRN PRN Reason: Nausea And Vomiting Oxycodone HCl (Roxicodone) 5 mg PO Q4HP PRN PRN Reason: PAIN LEVEL 3-6 Last Admin: 06/29/18 11:50 Dose: 5 mg Senna (Senokot) 2 tab PO HS [facility] Sodium Chloride (Saline Flush) 10 ml IV Q8 [facility] Vancomycin HCl (Vancomycin Per Pharmacy) 1 order IV UD [facility] Assessment and Plan - Narrative A/P Narrative: Assessment: 1. Necrotic skin and soft tissue infection of the left foot with involvement of underlying bone and muscles at multiple levels: Preliminary wound cultures growing group B strep and anerobes Waiting for surgery today 2. No sepsis 3. Uncontrolled diabetes with peripheral neuropathy Recommendations: Stop IV Vanc Continue IV Zosyn 4.5 g every 6 hours. If the cultures suggest no Pseudomonas , will de-escalate it to 3.375 g every 6 Strongly agree with surgical debridement today. Send operative samples for Gram stain and culture sensitivity For optimal outcomes will need long-term diabetes control [random blood glucose less than 180] and smoking cessation Patient would need long-term antibiotics [4-6 weeks of IV]. Consider PICC line placement We will follow while inpatient Romario Domingo MD Infectious disease
[2018-06-29] MEDS ORDERED: LACTATED RINGERS 1,000 ML IV ONE (16:04)
--- NOTE | 2018-06-29 17:31 | Internal Med Progress Note ---
Medical - PN: Subj Patient information: Note initiated : 06/29/18 at 5:27 pm Service Date, if different from initiated Date: [] Patient: Francesca Leon a 52 y/o F admitted on 06/27/18 for Left Foot Ulcer. Chief Complaint: [] Interval history: Ms. Leon is a 52 year old F with h/o Dm, presents to the ER today with complaints of left foot pain. The patient notes approximately 6 weeks ago she stepped on attack, resulting in a puncture wound. Initially they were trying to clean the wound by local wound care, the patient's wound progressed and the patient was followed by Dr. 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 The patient wound progressively got worse, with increasing redness swelling, increased smell. patient underwent debridement at his office, and was placed on doxycycline and ciprofloxacin, the patient notes that this did not help much and the swelling, infection continued to persist, the patient was started on clindamycin on 06/15/18. The patient on her follow up noted no significant improvement with worsening redness, discharge, patient was therefore asked to come to the hospital for IV antibiotics. The patient is accompanied by her , notes has DM, uncontrolled last a1c was 14. According to the notes of Dr Bender, pt has h/o MRSA Patient in the ER afebrile, HR 77, BP 111/68. 91% on RA Labs show WBC count of 16,800, hemoglobin 12.8 platelets 287. basic neg, glucose elevated to 282. ESR 98 CRP 18.9 and lactic acid is 1.4. Patient clinically appears quite stable is being admitted to the medical floor for further management. Dr Chu has been consulted who will be there to evaluate the patient. I spone with him and he will be here after clinic hours. The CT scan of the foot reviewed, there is gas noted in the tissues however the patient has an open ulcer and has had instrumentation done recently. She does have significant cellulitis positive drainage at this point. And is going to be evaluated by the surgeon soon. I do not believe that this is necrotizing fasciitis at this time given her hemodynamic stability and recent instrumentation which could easily explain the gas. She does have necrotizing soft tissue infection. 06/28 Patient seen and examined no acute overnight events. Wound was in dressing today. She has no acute complaints or concerns. Glucose level high yesterday better today. MRI done today shows severe osteomyelitis cellulitis. Likely plan for surgery tomorrow. Ongoing vancomycin and Zosyn appreciate podiatry and infectious disease input 06/29 Patient seen examined, post op drowsy, a bit hypotensive, bolus x 1 given with good repsonse, another 1L ordered. Patient has post op pain, at the site of surgery, Patient glucose level low normal, being monitied, lantus on hold for now. Pertinent ROS: Denies headache, dizziness Denies chest pain, palpitations Denies cough or shortness of breath Denies abdominal pain, nausea or vomiting. - Constitutional Vitals: Vital Signs Temp Pulse Resp BP Pulse Ox 97.3 F 89 18 126/77 98 06/29/18 15:48 06/29/18 17:15 06/29/18 15:48 06/29/18 17:15 06/29/18 15:48 Period Temp Pulse Resp BP Sys/Carrillo Pulse Ox Last 24 Hr 96.3 F-98.9 F 74-89 16-20 99-165/42-96 88-99 Intake and Output 06/29/18 06/29/18 06/29/18 05:59 13:59 21:59 Intake Total 750 / 750 1700 / 1700 1350 / 1350 Output Total 200 / 200 400 / 400 300 / 300 Balance 550 / 550 1300 / 1300 1050 / 1050 Intake & Output: Intake & Output 06/29/18 06/29/18 06/29/18 05:59 13:59 21:59 Intake Total 750 / 750 1700 / 1700 1350 / 1350 Output Total 200 / 200 400 / 400 300 / 300 Balance 550 / 550 1300 / 1300 1050 / 1050 Intake: IV 50 / 50 50 / 50 1050 / 1050 Zosyn 4.5 gm In Dextrose 5% in 50 / 50 50 / 50 50 / 50 Water 50 ml @ 100 mls/hr IV Q6H [facility] Rx#:[id number] Oral 700 / 700 300 / 300 IV - Manual Only 1650 / 1650 Output: Void Amount 200 / 200 300 / 300 Estimated Blood Loss 400 / 400 Other: Meal HS snack 0 Dinner Percent of Meal Consumed 100% 100% Feeding Ability Independent Independent Urine Appearance Clear Urine Color Straw Straw Pale Urine Odor Normal Normal # Voids 1 Exam: Constitutional; Afebrile, cooperative, alert, not in distress. Respiratory system: Air Entry equal on both sides, No crackles or wheezing, no rhonchi. CVS- Rate rhythm regular, S1,S2 heard, no gallop, no rub. 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 Medical - PN: Obj Da - Labs CBC & Chem 7: 06/29/18 04:30 06/29/18 04:30 Labs: Abnormal Lab Results 06/29/18 06/29/18 06/29/18 08:26 08:25 08:14 WBC Hgb Hct RDW MPV Gran % Lymph % (Auto) Gran # [place] # (Auto) Lymphocytes % ESR Creatinine Glucose POC Glucose Hemoglobin A1c Calcium POC WB Ioniz Calcium Phosphorus Alkaline Phosphatase C-Reactive Protein Albumin Globulin Albumin/Globulin Ratio Urine Occult Blood 0.03 A Ur Squamous Epith Cells 9 H Urine Bacteria Few A U [place] Prot/Creat Ratio 0.30 H Vancomycin Trough 24.3 H* 06/29/18 06/29/18 06/28/18 04:30 04:30 04:28 WBC 12.9 H Hgb 11.1 L Hct 34.4 L RDW 14.6 H MPV Gran % Lymph % (Auto) 14.0 L Gran # 9.8 H [place] # (Auto) Lymphocytes % ESR Creatinine 1.5 H Glucose 55 L 52 L POC Glucose Hemoglobin A1c 13.5 H Calcium 8.3 L 8.4 L POC WB Ioniz Calcium Phosphorus 5.9 H 5.0 H Alkaline Phosphatase 161 H 160 H C-Reactive Protein Albumin 2.4 L 2.6 L Globulin 4.6 H 4.4 H Albumin/Globulin Ratio 0.5 L 0.6 L Urine Occult Blood Ur Squamous Epith Cells Urine Bacteria U Barton Prot/Creat Ratio Vancomycin Trough 06/28/18 06/27/18 06/27/18 04:28 14:37 13:37 WBC 15.1 H 16.8 H Hgb 11.4 L Hct 35.0 L RDW MPV 10.6 H Gran % 81.0 H Lymph % (Auto) 9.9 L Gran # 12.2 H [place] # (Auto) 1.0 H Lymphocytes % 11 L ESR 98 H Creatinine Glucose POC Glucose Hemoglobin A1c Calcium POC WB Ioniz Calcium Phosphorus Alkaline Phosphatase C-Reactive Protein Albumin Globulin Albumin/Globulin Ratio Urine Occult Blood Ur Squamous Epith Cells Urine Bacteria U Barton Prot/Creat Ratio Vancomycin Trough 06/27/18 13:36 WBC Hgb Hct RDW MPV Gran % Lymph % (Auto) Gran # [place] # (Auto) Lymphocytes % ESR Creatinine Glucose 282 H POC Glucose 292 H Hemoglobin A1c Calcium 8.5 L POC WB Ioniz Calcium 1.06 L Phosphorus Alkaline Phosphatase 139 H C-Reactive Protein 18.9 H Albumin 2.7 L Globulin 5.2 H Albumin/Globulin Ratio 0.5 L Urine Occult Blood Ur Squamous Epith Cells Urine Bacteria U [place] Prot/Creat Ratio Vancomycin Trough Meds: Medications Acetaminophen (Tylenol) 650 mg PO Q6HP PRN PRN Reason: PAIN/FEVER > 101 Albuterol Sulfate (Ventolin) 2.5 mg NEB Q2HP PRN PRN Reason: Shortness Of Breath Bupropion HCl (Wellbutrin Xl) 150 mg PO DAILY [facility] Dextrose (Dextrose 50%) 0 ml IV UD PRN PRN Reason: Hypoglycemia Diagnostic Test (Pha) (Accu-Chek) 1 each FS ACHS [facility] Last Admin: 06/29/18 17:04 Dose: 1 each Escitalopram Oxalate (Lexapro) 20 mg PO DAILY [facility] Glucose (Insta-Glucose) 15 gm PO PRN PRN PRN Reason: Hypoglycemia Heparin Sodium (Porcine) (Heparin) 5,000 unit SQ Q12 [facility] Hydrogen Peroxide/Benzyl Alcohol (Hydrogen Peroxide) 474 ml TOPICAL UD PRN PRN Reason: DRESSING CHANGES Piperacillin Sod/Tazobactam (Sod 4.5 gm/ Dextrose) 50 mls @ 100 mls/hr IV Q6H [facility] Last Admin: 06/29/18 17:11 Dose: 100 mls/hr Insulin Human Lispro (Humalog) 0 unit SQ [facility]; Protocol Last Admin: 06/29/18 17:04 Dose: Not Given Lisinopril (Zestril) 20 mg PO DAILY [facility] Lorazepam (Ativan) 0.5 mg PO HSP PRN PRN Reason: ANXIETY/SEDATION Morphine Sulfate (Morphine) 2 mg IV Q2HP PRN PRN Reason: PAIN LEVEL > 6 Last Admin: 06/29/18 17:10 Dose: 2 mg Naloxone HCl (Narcan) 0.1 mg IV Q2MIN PRN PRN Reason: Opiate Reversal Ondansetron HCl (Zofran) 4 mg IV Q6HP PRN PRN Reason: Nausea And Vomiting Oxycodone HCl (Roxicodone) 5 mg PO Q4HP PRN PRN Reason: PAIN LEVEL 3-6 Last Admin: 06/29/18 11:50 Dose: 5 mg Senna (Senokot) 2 tab PO HS [facility] Sodium Chloride (Saline Flush) 10 ml IV Q8 [facility] Last Admin: 06/29/18 15:04 Dose: 10 ml Vancomycin HCl (Vancomycin Per Pharmacy) 1 order IV UD [facility] Medical - PN: A/P - Time Spent With Patient Total time spent is greater than 50% in coordination of care (as documented) at patient's floor/unit and/or counseling patient: - Narrative A/P Narrative: A/P Diabetic, necrotizing soft tissue infection with acute osteomyelitis- s/p surgery today, on zosyn per ID, DM uncontrolled - a1c high, 13.5, gluicose levels ok post op, due to npo status , hold lantus for now. Cret up to 1.5, check ua, IV fluids to be given. HTN- hold lisinopril Depression/Anxiety- Resume citalopram/ buspirone DVT hep sq Diet carb consistent Ful code Medical - PN: Qual - VTE Deep Vein Thrombosis/Pulmonary Embolism Present on Admission: No
[2018-06-29] MEDS ORDERED: SENNOSIDES 1 TABLET PO SCH (21:00)
[2018-06-29] MEDS ORDERED: INSULIN GLARGINE, HUMAN 1 UNIT/0.01 ML SQ SCH (21:00)
[2018-06-30 05:46] LABS: Basophils # (Auto) 0.1 K/mcL (0.0-0.3); Basophils % (Auto) 0.5 % (0.0-2.0); Eosinophils # (Auto) 0.3 K/mcL (0.0-0.7); Eosinophils % (Auto) 2.1 % (0.0-7.0); Granulocytes % (Auto) 77.1 % (38.0-78.0); Lymphocytes # (Auto) 1.7 K/mcL (1.5-4.8); Lymphocytes % (Auto) 13.5 % (15.5-49.0); Mean Cell Volume 84.1 fL (80.0-100.0); Mean Corpuscular HGB Conc 33.2 g/dL (31.0-36.0); Monocytes # (Auto) 0.9 K/mcL (0.1-0.9); Monocytes % (Auto) 6.8 % (1.0-12.0); Platelet Count 288 K/mcL (140-440); RBC 3.46 M/mcL (4.00-5.20); Red Cell Distribution Width 14.6 % (11.5-14.5)
[2018-06-30] MEDS: PIPERACILLIN SODIUM/TAZOBACTAM 4.5 GM in DEXTROSE 5% IN WATER 50 ML IV SCH ×3 (06:03→18:12)
[2018-06-30] MEDS: 0.9 % SODIUM CHLORIDE 10 ML SYRINGE IV SCH ×4 (06:03→22:37)
[2018-06-30 06:05] LABS: ALT/SGPT 16 U/l (0-40); Albumin 2.2 gm/dL (3.2-5.2); Albumin/Globulin Ratio 0.6 (1.0-2.3); Alkaline Phosphatase 125 U/L (39-117); Bilirubin,Direct < 0.2 mg/dL (0.0-0.3); Blood Urea Nitrogen 23 mg/dl (6-20); Gamma Glutamyl Transpeptidase 23 U/L (5-36); Uric Acid 4.9 mg/dL (2.5-8.0); Vancomycin,Random 14.8 ug/mL
[2018-06-30] MEDS: INSULIN LISPRO 1 UNIT/0.01 ML UNIT SQ SCH ×4 (07:23→22:36)
[2018-06-30] MEDS ORDERED: LACTATED RINGERS 1,000 ML IV ONE ×2 (07:37)
[2018-06-30] MEDS: HEPARIN 5,000 UNIT/ML VIAL SQ SCH ×2 (07:53→22:37)
[2018-06-30] MEDS ORDERED: ESCITALOPRAM 20 MG TABLET PO SCH (09:00)
[2018-06-30] MEDS ORDERED: buPROPion 150 MG TAB.XL.24H PO SCH (09:00)
[2018-06-30] MEDS ORDERED: VANCOMYCIN 1,500 MG in 0.9 % SODIUM CHLORIDE 500 ML IV ONE (09:00)
[2018-06-30] MEDS ORDERED: LISINOPRIL 20 MG TABLET PO SCH (09:00)
[2018-06-30] MEDS ORDERED: DEXTROSE 50% 50 ML VIAL IV PRN (10:11)
[2018-06-30] MEDS ORDERED: NALOXONE HCL 0.4 MG/ML VIAL IV PRN (10:11)
[2018-06-30] MEDS ORDERED: ACETAMINOPHEN 325 MG TABLET PO PRN (10:11)
[2018-06-30] MEDS ORDERED: DEXTROSE 31 GM ORAL.SUSP PO PRN (10:11)
[2018-06-30] MEDS ORDERED: HYDROGEN PEROXIDE TOPICAL PRN (10:11)
[2018-06-30] MEDS ORDERED: oxyCODONE HCL 5 MG TABLET PO PRN (10:11)
[2018-06-30] MEDS ORDERED: 0.9 % SODIUM CHLORIDE 10 ML SYRINGE IV PRN (10:11)
[2018-06-30] MEDS ORDERED: ALBUTEROL SULFATE 2.5 MG/3 ML NEBULIZER NEB PRN (10:11)
--- NOTE | 2018-06-30 13:13 | Internal Med Progress Note ---
Medical - PN: Subj Patient information: Note initiated : 06/30/18 at 12:54 pm Service Date, if different from initiated Date: [] Patient: Francesca Leon a 52 y/o F admitted on 06/27/18 for Left Foot Ulcer. Chief Complaint: [] Interval history: Ms. Leon is a 52 year old F with h/o Dm, presents to the ER today with complaints of left foot pain. The patient notes approximately 6 weeks ago she stepped on attack, resulting in a puncture wound. Initially they were trying to clean the wound by local wound care, the patient's wound progressed and the patient was followed by Dr. Bender, The patient according to the manufacturing process engineer was walking with a tack in her shoe. The patient wound progressively got worse, with increasing redness swelling, increased smell. patient underwent debridement at his office, and was placed on doxycycline and ciprofloxacin, the patient notes that this did not help much and the swelling, infection continued to persist, the patient was started on clindamycin on 06/15/18. The patient on her follow up noted no significant improvement with worsening redness, discharge, patient was therefore asked to come to the hospital for IV antibiotics. The patient is accompanied by her , notes has DM, uncontrolled last a1c was 14. According to the notes of Dr Bender, pt has h/o MRSA Patient in the ER afebrile, HR 77, BP 111/68. 91% on RA Labs show WBC count of 16,800, hemoglobin 12.8 platelets 287. basic neg, glucose elevated to 282. ESR 98 CRP 18.9 and lactic acid is 1.4. Patient clinically appears quite stable is being admitted to the medical floor for further management. Dr Chu has been consulted who will be there to evaluate the patient. I spone with him and he will be here after clinic hours. The CT scan of the foot reviewed, there is gas noted in the tissues however the patient has an open ulcer and has had instrumentation done recently. She does have significant cellulitis positive drainage at this point. And is going to be evaluated by the surgeon soon. I do not believe that this is necrotizing fasciitis at this time given her hemodynamic stability and recent instrumentation which could easily explain the gas. She does have necrotizing soft tissue infection. 06/28 Patient seen and examined no acute overnight events. Wound was in dressing today. She has no acute complaints or concerns. Glucose level high yesterday better today. MRI done today shows severe osteomyelitis cellulitis. Likely plan for surgery tomorrow. Ongoing vancomycin and Zosyn appreciate podiatry and infectious disease input 06/29 Patient seen examined, post op drowsy, a bit hypotensive, bolus x 1 given with good repsonse, another 1L ordered. Patient has post op pain, at the site of surgery, Patient glucose level low normal, being monitied, lantus on hold for now. 06/30 Patient seen and examined no acute overnight events. She was hypotensive yesterday responded well to fluid boluses. This morning again was reported that she was hypotensive. Blood gas was drawn mildly hypoxic and has some CO2 retention. PH of 7.30 patient has a history of sleep apnea has not been wearing a CPAP machine at home. Clinically does not appear to be septic but given that she has been hypotensive postop remove the patient to PCU status for closer monitoring Gomez was placed. Once the patient was moved to the PCU her blood pressure was noted to be normal patient has no chest pain no dizziness no palpitations no cough. Pertinent ROS: Denies headache, dizziness Denies chest pain, palpitations Denies cough or shortness of breath Denies abdominal pain, nausea or vomiting. - Constitutional Vitals: Vital Signs Temp Pulse Resp BP Pulse Ox 98.3 F 69 14 105/67 93 06/30/18 07:41 06/30/18 11:40 06/30/18 11:40 06/30/18 11:32 06/30/18 11:40 Period Temp Pulse Resp BP Sys/Carrillo Pulse Ox Last 24 Hr 97.3 F-98.3 F 69-89 -18 94-133/54-80 54-100 Intake and Output 06/29/18 06/30/18 06/30/18 21:59 05:59 13:59 Intake Total 1999 / 1999 350 / 350 6340 / 6340 Output Total 400 / 400 Balance 1600 / 1600 350 / 350 6340 / 6340 Weight 328 lb Intake & Output: Intake & Output 06/29/18 06/30/18 06/30/18 21:59 05:59 13:59 Intake Total 1999 / 1999 350 / 350 6340 / 6340 Output Total 400 / 400 Balance 1600 / 1600 350 / 350 6340 / 6340 Weight 328 lb Intake: IV 1100 / 1100 50 / 50 6100 / 6100 Lactated Ringers 1,000 ml @ 1000 / 1000 Wide Open IV BOLUS ONE Rx#: [id number] Zosyn 4.5 gm In Dextrose 5% in 100 / 100 50 / 50 100 / 100 Water 50 ml @ 100 mls/hr IV Q6H [facility] Rx#:[id number] Vancomycin 1,500 mg In Sodium 500 / 500 Chloride 0.9% 500 ml @ 333.3 mls/hr IV ONCE ONE Rx#: [id number] Oral 900 / 900 300 / 300 240 / 240 Output: Void Amount 400 / 400 Other: Meal Dinner Breakfast Percent of Meal Consumed 100% 100% Feeding Ability Independent Independent Urine Appearance Clear Uretheral (Gomez) Clear Urine Color Bright Yellow Uretheral (Gomez) Bright Yellow Urine Odor Normal Uretheral (Gomez) Normal # Voids 1 1 Exam: Constitutional; Afebrile, cooperative, alert, not in distress. Respiratory system: Air Entry equal on both sides, No crackles or wheezing, no rhonchi. CVS- Rate rhythm regular, S1,S2 heard, no gallop, no rub. 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 Medical - PN: Obj Da - Labs CBC & Chem 7: 06/30/18 04:30 06/30/18 04:30 Labs: Abnormal Lab Results 06/30/18 06/30/18 06/29/18 04:30 04:30 08:26 WBC 12.8 H RBC 3.46 L Hgb 9.7 L Hct 29.1 L RDW 14.6 H MPV Gran % Lymph % (Auto) 13.5 L Gran # 9.8 H [place] # (Auto) Lymphocytes % ESR BUN 23 H Creatinine 1.9 H Glucose POC Glucose Hemoglobin A1c Calcium 7.9 L POC WB Ioniz Calcium Phosphorus 5.8 H Alkaline Phosphatase 125 H C-Reactive Protein Albumin 2.2 L Globulin 4.0 H Albumin/Globulin Ratio 0.6 L Urine Occult Blood 0.03 A Ur Squamous Epith Cells 9 H Urine Bacteria Few A U [place] Prot/Creat Ratio Vancomycin Trough 06/29/18 06/29/18 06/29/18 08:25 08:14 04:30 WBC RBC Hgb Hct RDW MPV Gran % Lymph % (Auto) Gran # [place] # (Auto) Lymphocytes % ESR BUN Creatinine 1.5 H Glucose 55 L POC Glucose Hemoglobin A1c 13.5 H Calcium 8.3 L POC WB Ioniz Calcium Phosphorus 5.9 H Alkaline Phosphatase 161 H C-Reactive Protein Albumin 2.4 L Globulin 4.6 H Albumin/Globulin Ratio 0.5 L Urine Occult Blood Ur Squamous Epith Cells Urine Bacteria U [place] Prot/Creat Ratio 0.30 H Vancomycin Trough 24.3 H* 06/29/18 06/28/18 06/28/18 04:30 04:28 04:28 WBC 12.9 H 15.1 H RBC Hgb 11.1 L 11.4 L Hct 34.4 L 35.0 L RDW 14.6 H MPV Gran % 81.0 H Lymph % (Auto) 14.0 L 9.9 L Gran # 9.8 H 12.2 H [place] # (Auto) 1.0 H Lymphocytes % ESR BUN Creatinine Glucose 52 L POC Glucose Hemoglobin A1c Calcium 8.4 L POC WB Ioniz Calcium Phosphorus 5.0 H Alkaline Phosphatase 160 H C-Reactive Protein Albumin 2.6 L Globulin 4.4 H Albumin/Globulin Ratio 0.6 L Urine Occult Blood Ur Squamous Epith Cells Urine Bacteria U [place] Prot/Creat Ratio Vancomycin Trough 06/27/18 06/27/18 06/27/18 14:37 13:37 13:36 WBC 16.8 H RBC Hgb Hct RDW MPV 10.6 H Gran % Lymph % (Auto) Gran # [place] # (Auto) Lymphocytes % 11 L ESR 98 H BUN Creatinine Glucose 282 H POC Glucose 292 H Hemoglobin A1c Calcium 8.5 L POC WB Ioniz Calcium 1.06 L Phosphorus Alkaline Phosphatase 139 H C-Reactive Protein 18.9 H Albumin 2.7 L Globulin 5.2 H Albumin/Globulin Ratio 0.5 L Urine Occult Blood Ur Squamous Epith Cells Urine Bacteria U [place] Prot/Creat Ratio Vancomycin Trough Meds: Medications Acetaminophen (Tylenol) 650 mg PO Q6HP PRN PRN Reason: PAIN/FEVER > 101 Albuterol Sulfate (Ventolin) 2.5 mg NEB Q2HP PRN PRN Reason: Shortness Of Breath Bupropion HCl (Wellbutrin Xl) 150 mg PO DAILY [facility] Dextrose (Dextrose 50%) 0 ml IV UD PRN PRN Reason: Hypoglycemia Diagnostic Test (Pha) (Accu-Chek) 1 each FS ACHS [facility] Last Admin: 06/30/18 12:00 Dose: 1 each Escitalopram Oxalate (Lexapro) 20 mg PO DAILY [facility] Glucose (Insta-Glucose) 15 gm PO PRN PRN PRN Reason: Hypoglycemia Heparin Sodium (Porcine) (Heparin) 5,000 unit SQ Q12 [facility] Heparin Sodium (Porcine) (Heparin Flush) 2 ml IV Q12 [facility] Hydrogen Peroxide/Benzyl Alcohol (Hydrogen Peroxide) 474 ml TOPICAL UD PRN PRN Reason: DRESSING CHANGES Piperacillin Sod/Tazobactam (Sod 4.5 gm/ Dextrose) 50 mls @ 100 mls/hr IV Q6H [facility] Last Infusion: 06/30/18 12:50 Dose: Infused Insulin Human Lispro (Humalog) 0 unit SQ [facility]; Protocol Last Admin: 06/30/18 12:49 Dose: 6 unit Naloxone HCl (Narcan) 0.1 mg IV Q2MIN PRN PRN Reason: Opiate Reversal Ondansetron HCl (Zofran) 4 mg IV Q6HP PRN PRN Reason: Nausea And Vomiting Oxycodone HCl (Roxicodone) 5 mg PO Q4HP PRN PRN Reason: PAIN LEVEL 3-6 Senna (Senokot) 2 tab PO HS [facility] Sodium Chloride (Saline Flush) 10 ml IV Q8 [facility] Sodium Chloride (Saline Flush) 10 ml IV UD PRN PRN Reason: FLUSH Sodium Chloride (Saline Flush) 10 ml IV Q12 [facility] Medical - PN: A/P - Time Spent With Patient Total time spent is greater than 50% in coordination of care (as documented) at patient's floor/unit and/or counseling patient: - Narrative A/P Narrative: A/P Diabetic, necrotizing soft tissue infection with acute osteomyelitis- s/p surgery today, on zosyn per ID, PICC line to be palced Hypotension- Resolved, montor now, DM uncontrolled - a1c high, 13.5, gluicose levels ok post op, glucose levels trending up again, start lantus with 15bid and see how she responds. Cret up to 1.9, Fena 0.6, but clinically is not volume depleted, s/p 4 L saline bag, atn likely due to low bp, use of vanco and zosyn ,monitor for now. HTN- hold lisinopril Depression/Anxiety- Resume citalopram/ buspirone DVT hep sq Diet carb consistent Ful code Medical - PN: Qual - VTE Deep Vein Thrombosis/Pulmonary Embolism Present on Admission: No
--- NOTE | 2018-06-30 14:59 | Orthopedic Progress Note ---
Subjective Patient information: Note initiated : 06/30/18 at 2:57 pm Service Date, if different from initiated Date: [] Patient: Francesca Leon 52 y/o F admitted on 06/27/18 for Left Foot Ulcer. Chief Complaint: [POD #1 of partial fist and 2nd ray open amputation in fairly sensate patient. Resolving hypotension after being placed in ICU] Principal diagnosis: osteomyelitis with necrotizing infection of left foot Pertinent ROS: denies n/v/chills/sf- mild sob Objective Vital signs: Vital Signs Temp Pulse Pulse Resp BP BP Pulse Ox 06/30/18 13:32 15 107/83 06/30/18 13:02 14 108/69 06/30/18 13:00 97 06/30/18 12:59 12 06/30/18 12:32 10 L 115/69 06/30/18 12:02 70 12 109/69 92 06/30/18 11:40 69 14 93 06/30/18 11:32 70 13 105/67 94 06/30/18 11:02 72 14 106/67 94 06/30/18 11:00 96 06/30/18 10:32 70 14 109/68 94 06/30/18 10:02 70 16 121/72 100 06/30/18 09:54 13 133/75 06/30/18 09:26 80 16 96/54 94 06/30/18 07:41 98.3 F 18 94/80 92 06/30/18 07:29 91 06/30/18 04:00 98.3 F 80 18 109/65 93 06/29/18 23:39 97.6 F 78 16 119/75 94 06/29/18 19:20 97.7 F 88 18 105/60 95 06/29/18 19:15 54 L 06/29/18 17:15 89 126/77 06/29/18 16:00 101/68 06/29/18 15:48 97.3 F 75 18 99/64 98 Intake and Output 06/30/18 06/30/18 06/30/18 05:59 13:59 21:59 Intake Total 350 / 350 6340 / 6340 Balance 350 / 350 6340 / 6340 Intake: IV 50 / 50 6100 / 6100 Lactated Ringers 1,000 ml @ 1000 / 1000 Wide Open IV BOLUS ONE Rx#: [id number] Zosyn 4.5 gm In Dextrose 5% in 50 / 50 100 / 100 Water 50 ml @ 100 mls/hr IV Q6H [facility] Rx#:[id number] Vancomycin 1,500 mg In Sodium 500 / 500 Chloride 0.9% 500 ml @ 333.3 mls/hr IV ONCE ONE Rx#: [id number] Oral 300 / 300 240 / 240 Other: Meal Breakfast Percent of Meal Consumed 100% Feeding Ability Independent Urine Appearance Uretheral (Gomez) Clear Urine Color Uretheral (Gomez) Bright Yellow Urine Odor Uretheral (Gomez) Normal # Voids 1 Intake & Output: Intake & Output 06/30/18 06/30/18 06/30/18 05:59 13:59 21:59 Intake Total 350 / 350 6340 / 6340 Balance 350 / 350 6340 / 6340 Intake: IV 50 / 50 6100 / 6100 Lactated Ringers 1,000 ml @ 1000 / 1000 Wide Open IV BOLUS ONE Rx#: [id number] Zosyn 4.5 gm In Dextrose 5% in 50 / 50 100 / 100 Water 50 ml @ 100 mls/hr IV Q6H [facility] Rx#:[id number] Vancomycin 1,500 mg In Sodium 500 / 500 Chloride 0.9% 500 ml @ 333.3 mls/hr IV ONCE ONE Rx#: [id number] Oral 300 / 300 240 / 240 Other: Meal Breakfast Percent of Meal Consumed 100% Feeding Ability Independent Urine Appearance Uretheral (Gomez) Clear Urine Color Uretheral (Gomez) Bright Yellow Urine Odor Uretheral (Gomez) Normal # Voids 1 Incision: Yes draining Incision clean and dry: No (sanguineous drainage- no active purulence- improvement- 3rd toe viable-impr) Weight bearing status: partial (heel wb only for transfer) Additional Comments: Left foot-overall, improvement after significant debridement of bone, muscle, fascia and skin- open/guillotine first and second partial ray amputation. 3rd toe appearance is improved with resolved erythema. No malodor today. No streaking erythema without pain in ankle, leg or posterior knee. Pt with mild sensory neuropathy. Additional Comments: pt has equinus and a tight heel cord left - Periperhal Pulses Peripheral pulses: 1+: posterior tibialis (L), 2+: dorsalis pedis (L) - Labs CBC & BMP: 06/30/18 04:30 06/30/18 04:30 Labs: 06/30/18 06/29/18 06/28/18 04:30 04:30 04:28 Hgb 9.7 L 11.1 L 11.4 L Hct 29.1 L 34.4 L 35.0 L 06/27/18 14:37 Hgb 12.8 Hct 36.8 Assessment and Plan (1) Osteomyelitis of foot, left, acute POD#1 Necrotizing Left foot infection with partial first and second ray amputation/guillotine with extensive debridement of bone, muscle, fascia. Overall, improved, 3rd toe remains viable and the remaining foot is improved in color and i cannot express purulence or appreciate any crepitus. The foot was flushed with 50mL of Vashe/nss and the planes were repacked with 1/4" packing. DSD applied. Will perform daily. Verbal order for 2mg-4mg of morphine now. Pt requires pre-flush/dressing pain medication. -Wound cultures -aerobic, anaerobic and fungal taken in OR pending. -prior wound cultures Grp B step with GNR that did not grow out- suggestive of anaerobics. -Continue zosyn as per Dr. Domingo -Agree with Dr. Castellon to have pt evaluated for HBO -WBC dropped to 12.8 from 16.8 -CRP ordered -Foot and ankle, leg xrays ordered to evaluate for gas Plan Options discussed with patient, patient's , Dr Castellon and nursing. 1) daily flush out with reduced daily packing- If tissues remain viable,and granulation tissue is produced, will transfer to woundcare for VAC placement and ask Dr Carbajal to consider grafting. 2) If not responding, will consider transmetatarsal amputation 3) If not responding will ask Dr Rodrigues to evaluate for BKA Hypotension- improved. pt in ICU being followed- pt had near half liter blood loss in surgery and dropped Hbg from 12.8 to 9.7 since admission. Acute Renal - pt had high Vanco troughs, Vanco held and running fluids as per medicine. DM with neuropathy - fluctuating bs stable. Albumin- 2.2 Recomended nutrition evaluation for pt with uncontrolled blood sugars Status: Acute
[2018-06-30] MEDS: ONDANSETRON 4 MG/2 ML VIAL IV PRN (15:03)
--- NOTE | 2018-06-30 16:43 | XRay Report ---
CLINICAL INFORMATION: post amputation please check for gas in tissues COMPARISON: [CT 06/27/2018 FINDINGS: The first and second ray amputation changes at the distal metatarsal diaphysis exhibits a typical postoperative appearance without evidence of osteomyelitis. There is mild periarticular osteoporosis in the third fourth and fifth rays. Moderate diffuse forefoot and midfoot soft tissue swelling noted which is nonspecific and represent either edema or cellulitis. There is no gas in the soft tissues to suggest the presence of gas-forming infection IMPRESSION: First and second ray mid metatarsal amputation typical postoperative stump. No evidence of osteomyelitis. Diffuse soft tissue swelling forefoot and midfoot likely represents edema or cellulitis. No evidence of gas-forming infection Interpreted and Authenticated by: Wilber Campos 06/30/18
--- NOTE | 2018-06-30 16:46 | XRay Report ---
CLINICAL INFORMATION: check for gas in tissues planes COMPARISON: None. FINDINGS: The ankle mortise and talocalcaneal joints are normal with alignment without arthritic change. No osseous abnormality. There is moderate edema or cellulitis in the distal calf and ankle tissues. Scattered dystrophic calcifications seen medially. There is no gas in the soft tissues that would suggest a gas-forming infection. IMPRESSION: Diffuse soft tissue swelling in the distal calf and ankle indicating edema or cellulitis. No gas in the soft tissues. Interpreted and Authenticated by: Wilber Campos 06/30/18
--- NOTE | 2018-06-30 16:56 | XRay Report ---
CLINICAL INFORMATION: necrotizing infection- check for gas in tissues COMPARISON: None. FINDINGS: Moderate degenerative change in the patellofemoral and severe degenerative change in medial tibiofemoral joints appreciated. No osteomyelitis or other focal osseous abnormality. Moderate diffuse soft tissue swelling noted with dystrophic calcifications in the anterior/medial soft tissues of the calf. No soft tissue gas seen to suggest gas-forming infection IMPRESSION: Diffuse soft tissue swelling indicating cellulitis /facet or edema. No evidence of gas forming infection. No evidence of osteomyelitis Moderate patellofemoral and severe medial tibiofemoral degenerative Interpreted and Authenticated by: Wilber Campos 06/30/18
--- NOTE | 2018-06-30 18:31 | Operative Note ---
DATE OF OPERATION: 06/29/2018 PREOPERATIVE DIAGNOSIS: Necrotizing foot infection, left foot. POSTOPERATIVE DIAGNOSIS: Necrotizing foot infection, left foot. PROCEDURE: Amputation of partial first and second rays of the left foot. SURGEON: Clive Chu DPM. PATHOLOGY: Partial first and second rays with wound culture. ANESTHESIA: Monitored anesthesia care with ankle block. HEMOSTASIS: Anatomic. ESTIMATED BLOOD LOSS: 400 mL. MATERIALS USED: Dressings. INJECTABLES: An ankle block preoperatively with 36 mL of 0.5% Marcaine plain. COMPLICATIONS: This is a very aggressive foot infection which required extensive debridement of soft tissues around the first ray, requiring a partial first ray amputation. There were also numerous areas along the forefoot underneath the second and third rays which had significant necrotic tissues and on the dorsum of the forefoot as well. PREAMBLE: The patient is a 52-year-old, uncontrolled diabetic patient with mild neuropathy with a [id number] history of smoking. Patient had been treated by an outside provider for a left foot infection after stepping on a tack many weeks prior. The patient had been treated with incision and drainage and oral antibiotics. However, on 06/27/2018 the patient's , who has been taking care of the dressings and wound care, felt that the wound had gotten significantly worse and was not getting better and went to [facility] ER. The patient was admitted for a diabetic foot infection. The patient upon CT was shown to have significant destruction in the distal second metatarsal indicative of a septic joint. An MRI was performed and found to have had no significant light up of the first, third, fourth or fifth metatarsal bone areas to indicate osteomyelitis. However, the first metatarsal joint did show significant signs of soft tissue breakdown around the joint and necrosis. The wound was extremely malodorous and had significant seropurulent drainage. The patient had been flushed on two occasions prior to going to surgery. I discussed previously with the patient and the patient's that this is a very aggressive infection which would require a significant surgery and possibly more surgery while being in the hospital. We first discussed doing a first and second ray amputation and leaving the wound open and flushing it daily, and if this responded well we would perform a wound V.A.C. treatment and have the patient perform considerable wound care. We also discussed the possibility of a transmetatarsal amputation if this did not significantly improve. At that point we also discussed the possibility of a below-knee amputation given the aggressive nature and extent of the infection. PROCEDURE: The patient was brought into the operating room and identified by anesthesia staff and myself. The patient remained in her hospital bed due to considerable weight. The patient was kept in a seated position for anesthesia, and it was felt that due to the patient's comorbidities that anesthesia would best be served with monitored anesthesia care with a local block. Once an adequate plane of anesthesia was obtained, an ankle block was performed on the left ankle with 36 mL of 0.5% Marcaine plain. Next, the foot was inspected, and the first metatarsophalangeal joint was found to have inadequate coverage of tissue with necrosis, and the tissue was oozing with purulent discharge in an area of approximately a quarter to a half-dollar size. There was also significant erythema and calor to the toe, and the medial side of the first interspace was completely necrosed without any skin coverage, and I was able to freely palpate bone, both the first metatarsal, second metatarsal, first proximal phalanx of the hallux, and there was very little resistance with probing in the second MPJ area. There was extreme malodor and significant purulence was expressed from the first interspace. A culture was taken. It was decided at this time that it was necessary to do a partial first ray amputation as well as a partial second ray amputation. The hallux was disarticulated and at that point the skin was inspected and found to have significant necrotic tissue in the first interspace and dorsum of the foot and the plantar surface as well. I had to take more skin than I expected to due to the necrosis underneath the skin of the intrinsic musculature and fascia. This resulted in and necessitated a partial amputation of the first metatarsal. This was performed with a sagittal saw. The bone was found to be firm, hard and bled well. Next, attention was drawn over to the second metatarsal where considerable darkened necrotic tissue was debrided. Bleeders were clamped and ligated along the way. Next, a sagittal saw was used to create an osteotomy of the second metatarsal approximately mcc down the shaft. This was disarticulated and found to be surrounded by considerable more necrotic darkened devitalized tissues. These were debrided sharply, and once again more skin was lost as a result of these debridements. Next, debridement of necrotic tissue was performed underneath the third metatarsal head and into the plantar surfaces of the intrinsic muscles. I could not probe across to the fifth metatarsal head. Tissue beyond that appeared to be vital. The third toe does have some significant erythema to it. However, there was no necrosis surrounding the joint at this time. The MRI did discuss a pocket on the dorsum of the fifth metatarsophalangeal joint. However, to the eye this part looks completely unaffected without signs of infection, and I could not probe across at this point either dorsally or plantarly, but there was some dorsal probing found and plantar probing found. At this point we performed a pulse lavage with 3 liters of normal sterile saline with 160 mg of gentamicin and 50 units of bacitracin. Next, the areas that probed were packed with ribbon packing and the foot was dressed with Xeroform, many 4 x 4's, Kerlix, and a light layer of Coban. The patient tolerated the procedure well and was transferred from the operating room to her room with vital signs stable and vascular status intact. I did have a long discussion with the after the surgery discussing the extensive nature of the necrosis of the underlying tissues, and once again that the plan was still the same; that we would monitor this over the next couple of days, monitor infection markers and wound appearances, and if we find that there is granular tissue developing, go to a wound V.A.C. in possibly 1 to 2 weeks. We also discussed the possibility of further surgery, including a transmetatarsal amputation. If this turns out to be necessary, I will consult Dr. Rodrigues with the concern that if this does not work, a below-knee amputation may be necessitated. CARI:[email or web address] Job ID: [id number] Doc ID: [id number] Clive Chu DPM
[2018-06-30] MEDS ORDERED: SENNOSIDES 1 TABLET PO SCH (21:00)
[2018-07-01] MEDS: PIPERACILLIN SODIUM/TAZOBACTAM 4.5 GM in DEXTROSE 5% IN WATER 50 ML IV SCH ×2 (00:12→05:45)
[2018-07-01 05:31] LABS: Basophils # (Auto) 0.1 K/mcL (0.0-0.3); Basophils % (Auto) 0.5 % (0.0-2.0); Eosinophils # (Auto) 0.3 K/mcL (0.0-0.7); Eosinophils % (Auto) 3.3 % (0.0-7.0); Granulocytes % (Auto) 75.4 % (38.0-78.0); Lymphocytes # (Auto) 1.4 K/mcL (1.5-4.8); Lymphocytes % (Auto) 13.8 % (15.5-49.0); Mean Cell Volume 83.7 fL (80.0-100.0); Mean Corpuscular HGB Conc 32.5 g/dL (31.0-36.0); Mean Corpuscular Hemoglobin 27.2 pg (26.0-34.0); Monocytes # (Auto) 0.7 K/mcL (0.1-0.9); Platelet Count 291 K/mcL (140-440); RBC 3.42 M/mcL (4.00-5.20); Red Cell Distribution Width 14.6 % (11.5-14.5)
[2018-07-01] MEDS: 0.9 % SODIUM CHLORIDE 10 ML SYRINGE IV SCH ×5 (05:45→21:05)
[2018-07-01 05:52] LABS: ALT/SGPT 18 U/l (0-40); Albumin 2.6 gm/dL (3.2-5.2); Albumin/Globulin Ratio 0.7 (1.0-2.3); Alkaline Phosphatase 122 U/L (39-117); Bilirubin,Direct < 0.2 mg/dL (0.0-0.3); Blood Urea Nitrogen 19 mg/dl (6-20); Gamma Glutamyl Transpeptidase 24 U/L (5-36); Uric Acid 4.5 mg/dL (2.5-8.0)
[2018-07-01 06:15] LABS: Erythrocyte Sedimentation Rate > 120 mm/hr (0-20)
[2018-07-01] MEDS: ONDANSETRON 4 MG/2 ML VIAL IV PRN ×4 (08:43→23:56)
[2018-07-01] MEDS: HEPARIN 5,000 UNIT/ML VIAL SQ SCH ×2 (08:51→21:02)
[2018-07-01] MEDS: INSULIN LISPRO 1 UNIT/0.01 ML UNIT SQ SCH ×4 (08:51→21:17)
[2018-07-01] MEDS ORDERED: buPROPion 150 MG TAB.XL.24H PO SCH (09:00)
[2018-07-01] MEDS ORDERED: ESCITALOPRAM 20 MG TABLET PO SCH (09:00)
[2018-07-01] MEDS ORDERED: INSULIN GLARGINE, HUMAN 1 UNIT/0.01 ML SQ SCH (09:00)
[2018-07-01] MEDS ORDERED: HYDROGEN PEROXIDE TOPICAL PRN (09:45)
[2018-07-01] MEDS ORDERED: NALOXONE HCL 0.4 MG/ML VIAL IV PRN (09:45)
[2018-07-01] MEDS ORDERED: DEXTROSE 50% 50 ML VIAL IV PRN (09:45)
[2018-07-01] MEDS ORDERED: ALBUTEROL SULFATE 2.5 MG/3 ML NEBULIZER NEB PRN (09:45)
[2018-07-01] MEDS ORDERED: DEXTROSE 31 GM ORAL.SUSP PO PRN (09:45)
[2018-07-01] MEDS ORDERED: ACETAMINOPHEN 325 MG TABLET PO PRN (09:45)
[2018-07-01] MEDS ORDERED: PIPERACILLIN SODIUM/TAZOBACTAM 3.375 GM in DEXTROSE 5% IN WATER 50 ML IV SCH (12:00)
[2018-07-01] MEDS: PIPERACILLIN SODIUM/TAZOBACTAM 3.375 GM in DEXTROSE 5% IN WATER 50 ML IV SCH ×3 (12:17→23:45)
--- NOTE | 2018-07-01 12:36 | Internal Med Progress Note ---
Medical - PN: Subj Patient information: Note initiated : 07/01/18 at 12:34 pm Service Date, if different from initiated Date: [] Patient: Francesca Leon a 52 y/o F admitted on 06/27/18 for Left Foot Ulcer. Chief Complaint: [] Interval history: Ms. Leon is a 52 year old F with h/o Dm, presents to the ER today with complaints of left foot pain. The patient notes approximately 6 weeks ago she stepped on attack, resulting in a puncture wound. Initially they were trying to clean the wound by local wound care, the patient's wound progressed and the patient was followed by Dr. Bender, The patient according to the golf course keeper was walking with a tack in her shoe. The patient wound progressively got worse, with increasing redness swelling, increased smell. patient underwent debridement at his office, and was placed on doxycycline and ciprofloxacin, the patient notes that this did not help much and the swelling, infection continued to persist, the patient was started on clindamycin on 06/15/18. The patient on her follow up noted no significant improvement with worsening redness, discharge, patient was therefore asked to come to the hospital for IV antibiotics. The patient is accompanied by her , notes has DM, uncontrolled last a1c was 14. According to the notes of Dr Bender, pt has h/o MRSA Patient in the ER afebrile, HR 77, BP 111/68. 91% on RA Labs show WBC count of 16,800, hemoglobin 12.8 platelets 287. basic neg, glucose elevated to 282. ESR 98 CRP 18.9 and lactic acid is 1.4. Patient clinically appears quite stable is being admitted to the medical floor for further management. Dr Chu has been consulted who will be there to evaluate the patient. I spone with him and he will be here after clinic hours. The CT scan of the foot reviewed, there is gas noted in the tissues however the patient has an open ulcer and has had instrumentation done recently. She does have significant cellulitis positive drainage at this point. And is going to be evaluated by the surgeon soon. I do not believe that this is necrotizing fasciitis at this time given her hemodynamic stability and recent instrumentation which could easily explain the gas. She does have necrotizing soft tissue infection. 06/28 Patient seen and examined no acute overnight events. Wound was in dressing today. She has no acute complaints or concerns. Glucose level high yesterday better today. MRI done today shows severe osteomyelitis cellulitis. Likely plan for surgery tomorrow. Ongoing vancomycin and Zosyn appreciate podiatry and infectious disease input 06/29 Patient seen examined, post op drowsy, a bit hypotensive, bolus x 1 given with good repsonse, another 1L ordered. Patient has post op pain, at the site of surgery, Patient glucose level low normal, being monitied, lantus on hold for now. 06/30 Patient seen and examined no acute overnight events. She was hypotensive yesterday responded well to fluid boluses. This morning again was reported that she was hypotensive. Blood gas was drawn mildly hypoxic and has some CO2 retention. PH of 7.30 patient has a history of sleep apnea has not been wearing a CPAP machine at home. Clinically does not appear to be septic but given that she has been hypotensive postop remove the patient to PCU status for closer monitoring Gomez was placed. Once the patient was moved to the PCU her blood pressure was noted to be normal patient has no chest pain no dizziness no palpitations no cough. 07/01 Patient seen and examined, no acute overnight events. Monitor on PCU status patient's blood pressure has remained stable with no evidence of sepsis or septic shock. Will move the patient back to medical floor. Creatinine 2.1 worsened today, likely secondary to drop in blood pressure as well as antibiotic use. Good urine output patient tolerating p.o. diet well monitor for now consider nephrology consult if it worsens further. Plan of care reviewed with Dr. Chu, I will try to see if wound care can arrange for hyperbaric treatment for this patient. Pertinent ROS: Denies headache, dizziness Denies chest pain, palpitations Denies cough or shortness of breath Denies abdominal pain, nausea or vomiting. - Constitutional Vitals: Vital Signs Temp Pulse Resp BP Pulse Ox 97.9 F 71 9 L 129/72 93 07/01/18 04:01 07/01/18 08:00 07/01/18 08:00 07/01/18 08:00 07/01/18 08:00 Period Temp Pulse Resp BP Sys/Carrillo Pulse Ox Last 24 Hr 97.9 F-98.8 F 67-81 5-20 102-143/58-98 76-100 Intake and Output 11/11/1207/01/18 07/01/18 22:59 05:59 13:59 Intake Total 240 / 240 Output Total 950 / 950 Balance -710 / -710 Weight Intake & Output: Intake & Output 06/30/18 07/01/18 07/01/18 22:59 05:59 13:59 Intake Total 240 / 240 Output Total 950 / 950 Balance -710 / -710 Weight Intake: IV Zosyn 4.5 gm In Dextrose 5% in Water 50 ml @ 100 mls/hr IV Q6H [facility] Rx#:[id number] Oral 240 / 240 Output: Urine Catheter Amount 950 / 950 Other: Meal Breakfast Percent of Meal Consumed 100% Feeding Ability Independent Urine Appearance Clear Uretheral (Gomez) Urine Color Bright Yellow Uretheral (Gomez) Stool Size Copious Stool Color Brown Stool Consistency Soft # Bowel Movements 1 Exam: Constitutional; Afebrile, cooperative, alert, not in distress. Eyes- No icterus, , No periorbital swelling Ears- Ext ear normal, hearing normal to conversation. Neck- Midline trachea, supple Respiratory system: Air Entry equal on both sides, No crackles or wheezing, no rhonchi. CVS- Rate rhythm regular, S1,S2 heard, no gallop, no rub. Abdomen- Soft nontender abdomen, no organomegaly, no tenderness, no guarding or rigidity, MERCERIZING RANGE FEEDER- AOOx3, moving all extremities, no gross focal deficit noted. Medical - PN: Obj Da - Labs CBC & Chem 7: 07/01/18 04:00 07/01/18 04:00 Labs: Abnormal Lab Results 07/01/18 07/01/18 06/30/18 04:00 04:00 15:15 WBC RBC 3.42 L Hgb 9.3 L Hct 28.6 L RDW 14.6 H Lymph % (Auto) 13.8 L Gran # Lymph # (Auto) 1.4 L ESR > 120 H BUN Creatinine 2.2 H Glucose 164 H Hemoglobin A1c Calcium 8.2 L Phosphorus Alkaline Phosphatase 122 H C-Reactive Protein 9.4 H Albumin 2.6 L Globulin 4.0 H Albumin/Globulin Ratio 0.7 L Urine Occult Blood Ur Squamous Epith Cells Urine Bacteria U [place] Prot/Creat Ratio Vancomycin Trough 06/30/18 06/30/18 06/29/18 04:30 04:30 08:26 WBC 12.8 H RBC 3.46 L Hgb 9.7 L Hct 29.1 L RDW 14.6 H Lymph % (Auto) 13.5 L Gran # 9.8 H Lymph # (Auto) ESR BUN 23 H Creatinine 1.9 H Glucose Hemoglobin A1c Calcium 7.9 L Phosphorus 5.8 H Alkaline Phosphatase 125 H C-Reactive Protein Albumin 2.2 L Globulin 4.0 H Albumin/Globulin Ratio 0.6 L Urine Occult Blood 0.03 A Ur Squamous Epith Cells 9 H Urine Bacteria Few A U [place] Prot/Creat Ratio Vancomycin Trough 06/29/18 06/29/18 06/29/18 08:25 08:14 04:30 WBC RBC Hgb Hct RDW Lymph % (Auto) Gran # Lymph # (Auto) ESR BUN Creatinine 1.5 H Glucose 55 L Hemoglobin A1c 13.5 H Calcium 8.3 L Phosphorus 5.9 H Alkaline Phosphatase 161 H C-Reactive Protein Albumin 2.4 L Globulin 4.6 H Albumin/Globulin Ratio 0.5 L Urine Occult Blood Ur Squamous Epith Cells Urine Bacteria U [place] Prot/Creat Ratio 0.30 H Vancomycin Trough 24.3 H* 06/29/18 04:30 WBC 12.9 H RBC Hgb 11.1 L Hct 34.4 L RDW 14.6 H Lymph % (Auto) 14.0 L Gran # 9.8 H Lymph # (Auto) ESR BUN Creatinine Glucose Hemoglobin A1c Calcium Phosphorus Alkaline Phosphatase C-Reactive Protein Albumin Globulin Albumin/Globulin Ratio Urine Occult Blood Ur Squamous Epith Cells Urine Bacteria U [place] Prot/Creat Ratio Vancomycin Trough Meds: Medications Acetaminophen (Tylenol) 650 mg PO Q6HP PRN PRN Reason: PAIN/FEVER > 101 Albuterol Sulfate (Ventolin) 2.5 mg NEB Q2HP PRN PRN Reason: Shortness Of Breath Bupropion HCl (Wellbutrin Xl) 150 mg PO DAILY [facility] Dextrose (Dextrose 50%) 0 ml IV UD PRN PRN Reason: Hypoglycemia Diagnostic Test (Pha) (Accu-Chek) 1 each FS ACHS [facility] Last Admin: 07/01/18 12:16 Dose: 1 each Escitalopram Oxalate (Lexapro) 20 mg PO DAILY [facility] Glucose (Insta-Glucose) 15 gm PO PRN PRN PRN Reason: Hypoglycemia Heparin Sodium (Porcine) (Heparin) 5,000 unit SQ Q12 [facility] Heparin Sodium (Porcine) (Heparin Flush) 2 ml IV Q12 [facility] Hydrogen Peroxide/Benzyl Alcohol (Hydrogen Peroxide) 474 ml TOPICAL UD PRN PRN Reason: DRESSING CHANGES Piperacillin Sod/Tazobactam (Sod 3.375 gm/ Dextrose) 50 mls @ 100 mls/hr IV Q6H [facility] Last Admin: 07/01/18 12:17 Dose: 100 mls/hr Insulin Glargine (Lantus) 20 unit SQ BID [facility] Insulin Human Lispro (Humalog) 0 unit SQ ACHS [facility]; Protocol Last Admin: 07/01/18 12:16 Dose: 6 unit Morphine Sulfate (Morphine) 2 mg IV Q4HP PRN PRN Reason: PAIN LEVEL > 6 Naloxone HCl (Narcan) 0.1 mg IV Q2MIN PRN PRN Reason: Opiate Reversal Ondansetron HCl (Zofran) 4 mg IV Q6HP PRN PRN Reason: Nausea And Vomiting Oxycodone HCl (Roxicodone) 5 mg PO Q4HP PRN PRN Reason: PAIN LEVEL 3-6 Senna (Senokot) 2 tab PO HS [facility] Sodium Chloride (Saline Flush) 10 ml IV UD PRN PRN Reason: FLUSH Sodium Chloride (Saline Flush) 10 ml IV Q8 [facility] Sodium Chloride (Saline Flush) 10 ml IV Q12 [facility] Medical - PN: A/P - Time Spent With Patient Total time spent is greater than 50% in coordination of care (as documented) at patient's floor/unit and/or counseling patient: - Narrative A/P Narrative: A/P Diabetic, necrotizing soft tissue infection with acute osteomyelitis- s/p surgery today, on zosyn per ID, PICC line to be palced, wound care eval, HBOT? if possible Hypotension- Resolved, montor now, DM uncontrolled - a1c high, 13.5, gluicose levels ok post op, glucose levels trending up again, start lantus with 20 bid Cret up to 12.1, Fena 0.6, but clinically is not volume depleted, s/p 4 L saline bag, atn likely due to low bp, use of vanco and zosyn ,monitor for now. If continues to worsen, consider nephrology consult. HTN- hold lisinopril VIVEK not using cpap as dog chewed the mask, use cpap while here. Depression/Anxiety- Resume citalopram/ buspirone DVT hep sq Diet carb consistent Ful code Medical - PN: Qual - VTE Deep Vein Thrombosis/Pulmonary Embolism Present on Admission: No
[2018-07-01] MEDS: oxyCODONE HCL 5 MG TABLET PO PRN (14:02)
--- NOTE | 2018-07-01 17:40 | Orthopedic Progress Note ---
Subjective Patient information: Note initiated : 07/01/18 at 5:36 pm Service Date, if different from initiated Date: [PODIATRY NOTE] Patient: PODIATRY NOTE: Francesca Leon 52 y/o F admitted on 06/27/18 for Left Foot Ulcer. Chief Complaint: [POD#2 LEFT FOOT- Guillotine/partial first and 2nd ray (toe and part of metatarsal) amputations pt having bout of n/v when she sees me. This has been a pattern and I believe it due to anxiety. Ruy SF/C/NS or poor appetite or diarrhea.] Principal diagnosis: osteomyelitis with necrotizing infection of left foot Interval history: Overall, doing well. Objective Vital signs: Vital Signs Temp Pulse Pulse Resp BP BP Pulse Ox 07/01/18 16:00 96.9 F L 16 153/93 93 07/01/18 12:00 98.2 F 88 14 124/78 94 07/01/18 08:00 71 9 L 129/72 93 07/01/18 07:01 71 16 111/71 94 07/01/18 07:00 92 07/01/18 06:43 72 16 94 07/01/18 06:01 73 12 107/77 95 07/01/18 05:44 72 15 94 07/01/18 05:01 74 5 L 121/71 98 07/01/18 04:50 73 14 98 07/01/18 04:01 97.9 F 73 12 102/58 97 07/01/18 03:57 74 14 96 07/01/18 03:01 72 13 105/58 98 07/01/18 02:20 72 12 97 07/01/18 02:01 73 20 102/61 98 07/01/18 01:13 PST 74 14 97 07/01/18 01:00 PST 81 9 L 135/98 87 L 07/01/18 00:15 77 93 07/01/18 00:00 98.6 F 77 13 107/64 94 06/30/18 23:28 75 13 92 06/30/18 23:00 72 10 L 106/65 92 06/30/18 22:00 73 10 L 108/63 92 06/30/18 21:01 76 16 120/67 92 06/30/18 20:52 74 18 96 06/30/18 20:15 76 L 06/30/18 20:06 100 06/30/18 20:00 98.1 F 73 12 143/88 97 06/30/18 19:53 71 95 06/30/18 19:00 135/87 06/30/18 18:56 94 06/30/18 18:55 84 L Intake and Output 07/01/18 07/01/18 07/01/18 05:59 13:59 21:59 Intake Total 460 / 460 Output Total 950 / 950 1200 / 1200 Balance -490 / -490 -1200 / -1200 Intake: IV Zosyn 4.5 gm In Dextrose 5% in Water 50 ml @ 100 mls/hr IV Q6H [facility] Rx#:[id number] Oral 460 / 460 Output: Urine Catheter Amount 950 / 950 1200 / 1200 Other: Meal Lunch Percent of Meal Consumed 100% Feeding Ability Independent Urine Appearance Clear Uretheral (Gomez) Urine Color Bright Yellow Uretheral (Gomez) Stool Size Large Stool Color Brown Stool Consistency Soft # Bowel Movements 1 Intake & Output: Intake & Output 07/01/18 07/01/18 07/01/18 05:59 13:59 21:59 Intake Total 460 / 460 Output Total 950 / 950 1200 / 1200 Balance -490 / -490 -1200 / -1200 Intake: IV Zosyn 4.5 gm In Dextrose 5% in Water 50 ml @ 100 mls/hr IV Q6H [facility] Rx#:[id number] Oral 460 / 460 Output: Urine Catheter Amount 950 / 950 1200 / 1200 Other: Meal Lunch Percent of Meal Consumed 100% Feeding Ability Independent Urine Appearance Clear Uretheral (Gomez) Urine Color Bright Yellow Uretheral (Gomez) Stool Size Large Stool Color Brown Stool Consistency Soft # Bowel Movements 1 Incision clean and dry: No (much less serosanguineous drainage then yesterday) Weight bearing status: partial (Heel wb only to transfer- no walking) Additional Comments: mild sensory neuropathy Additional Comments: Left Foot amputation site: Open wound with exposed partial 1rst and 2nd metatarsals- No purulence expressed, tunneling closing unable to insert packing after flushing and I cannot appreciate any significant necrotic tissues. All other tissues granular. No streaking erythema- mild localized erythema without calor remainder of toes remain viable - Periperhal Pulses Peripheral pulses: 1+: posterior tibialis (L), 2+: dorsalis pedis (L) - Labs CBC & BMP: 07/01/18 04:00 07/01/18 04:00 Labs: 07/01/18 06/30/18 06/29/18 04:00 04:30 04:30 Hgb 9.3 L 9.7 L 11.1 L Hct 28.6 L 29.1 L 34.4 L 06/28/18 06/27/18 04:28 14:37 Hgb 11.4 L 12.8 Hct 35.0 L 36.8 Assessment and Plan (1) Osteomyelitis of foot, left, acute POD#1 Necrotizing Left foot infection with partial first and second ray amputation/guillotine with extensive debridement of bone, muscle, fascia. Overall, improved, 3rd toe remains viable and the remaining foot is improved in color and i cannot express purulence or appreciate any crepitus. The foot was flushed with 50mL of Vashe/nss and the planes were repacked with 1/4" packing. DSD applied. Will perform daily. Verbal order for 2mg-4mg of morphine now. Pt requires pre-flush/dressing pain medication. -Wound cultures -aerobic, anaerobic and fungal taken in OR pending. -prior wound cultures Grp B step with GNR that did not grow out- suggestive of anaerobics. -Continue zosyn as per Dr. Domingo -Agree with Dr. Castellon to have pt evaluated for HBO -WBC dropped to 12.8 from 16.8 -CRP ordered -Foot and ankle, leg xrays ordered to evaluate for gas Plan Options discussed with patient, patient's , Dr Castellon and nursing. 1) daily flush out with reduced daily packing- If tissues remain viable,and granulation tissue is produced, will transfer to woundcare for VAC placement and ask Dr Carbajal to consider grafting. 2) If not responding, will consider transmetatarsal amputation 3) If not responding will ask Dr Rodrigues to evaluate for BKA Hypotension- improved. pt in ICU being followed- pt had near half liter blood loss in surgery and dropped Hbg from 12.8 to 9.7 since admission. Acute Renal - pt had high Vanco troughs, Vanco held and running fluids as per medicine. DM with neuropathy - fluctuating bs stable. Albumin- 2.2 Recomended nutrition evaluation for pt with uncontrolled blood sugars Status: Acute - Narrative A/P Narrative: Left foot- Necrotizing infection with osteomyelitis POD#2 open partial first and second ray amputation Operative wound cultures GPC in pairs Anaerobic culture pending Fungal no budding yeast-pending Continue Zosyn as per ID- Dr Domingo No leukocytosis today. CRP reduced. -await pathology for 2nd metatarsal amputation cut shaft viability/evaluation Pt premedicated with 4mg zofran and 2mg morphine wound flushed with 100mg of nss/Vashe unable to push packing into tunnels DSD applied with adaptic, 4x4s, kerlix and coban Continue hwb only to transfer. Await HBO evaluation
[2018-07-01] MEDS: 0.9 % SODIUM CHLORIDE 10 ML SYRINGE IV PRN (17:57)
[2018-07-01] MEDS: SENNOSIDES 1 TABLET PO SCH (21:02)
[2018-07-01] MEDS: INSULIN GLARGINE, HUMAN 1 UNIT/0.01 ML SQ SCH (21:18)
[2018-07-02] MEDS: PIPERACILLIN SODIUM/TAZOBACTAM 3.375 GM in DEXTROSE 5% IN WATER 50 ML IV SCH ×3 (05:55→18:15)
[2018-07-02] MEDS: 0.9 % SODIUM CHLORIDE 10 ML SYRINGE IV SCH ×5 (05:55→22:55)
[2018-07-02 06:30] LABS: Basophils # (Auto) 0 K/mcL (0.0-0.3); Basophils % (Auto) 0.4 % (0.0-2.0); Eosinophils # (Auto) 0.2 K/mcL (0.0-0.7); Eosinophils % (Auto) 2.1 % (0.0-7.0); Granulocytes % (Auto) 80.6 % (38.0-78.0); Lymphocytes # (Auto) 1.4 K/mcL (1.5-4.8); Lymphocytes % (Auto) 12.1 % (15.5-49.0); Mean Cell Volume 84.7 fL (80.0-100.0); Mean Corpuscular Hemoglobin 27.9 pg (26.0-34.0); Monocytes # (Auto) 0.5 K/mcL (0.1-0.9); Monocytes % (Auto) 4.8 % (1.0-12.0); Platelet Count 277 K/mcL (140-440); RBC 3.44 M/mcL (4.00-5.20); Red Cell Distribution Width 14.4 % (11.5-14.5)
[2018-07-02 07:02] LABS: ALT/SGPT 19 U/l (0-40); Albumin 2.5 gm/dL (3.2-5.2); Albumin/Globulin Ratio 0.6 (1.0-2.3); Alkaline Phosphatase 138 U/L (39-117); Bilirubin,Direct < 0.2 mg/dL (0.0-0.3); Blood Urea Nitrogen 18 mg/dl (6-20); Gamma Glutamyl Transpeptidase 28 U/L (5-36); Uric Acid 4.3 mg/dL (2.5-8.0)
[2018-07-02] MEDS: INSULIN LISPRO 1 UNIT/0.01 ML UNIT SQ SCH ×4 (07:19→22:54)
--- NOTE | 2018-07-02 09:10 | XRay Report ---
INDICATION: Left-sided PICC line placement TECHNIQUE: AP chest x-ray, portable semiupright COMPARISON: Previous examination dated 06/27/2018 FINDINGS: Left-sided PICC line with its tip at the junction of the brachiocephalic vein and superior vena cava. Is cardiomegaly, unchanged. No acute pulmonary parenchymal infiltrate. IMPRESSION: 1. Left-sided PICC line with its tip at the junction of the brachiocephalic vein and superior vena cava 2. Cardiomegaly without evidence for congestive heart failure Interpreted and Authenticated by: Wilber Verdugo 07/02/18
[2018-07-02] MEDS: ONDANSETRON 4 MG/2 ML VIAL IV PRN (09:30)
[2018-07-02] MEDS: PANTOPRAZOLE 40 MG VIAL IV SCH (09:30)
[2018-07-02] MEDS: ESCITALOPRAM 20 MG TABLET PO SCH (09:31)
[2018-07-02] MEDS: buPROPion 150 MG TAB.XL.24H PO SCH (09:31)
[2018-07-02] MEDS: HEPARIN 5,000 UNIT/ML VIAL SQ SCH ×2 (09:31→22:53)
[2018-07-02] MEDS: INSULIN GLARGINE, HUMAN 1 UNIT/0.01 ML SQ SCH ×2 (09:32→22:54)
[2018-07-02] MEDS ORDERED: METOCLOPRAMIDE 10 MG/2 ML VIAL IV ONE (09:38)
[2018-07-02] MEDS: 0.9 % SODIUM CHLORIDE 10 ML SYRINGE IV PRN ×3 (09:40→12:11)
[2018-07-02 11:07] LABS: Blood Urea Nitrogen 17 mg/dl (6-20)
--- NOTE | 2018-07-02 13:12 | Ultrasound Report ---
CLINICAL INFORMATION: Left foot ulcer TECHNIQUE: Grayscale and color flow Doppler spectral imaging COMPARISON: None. FINDINGS: Technically limited examination due to patient obesity. Visualized portions of the left lower extremity arterial system are negative. No significant atherosclerotic plaque or luminal irregularity. Normal triphasic flow within the left common femoral artery and superficial femoral artery. Normal triphasic flow within the popliteal artery and proximal calf vessels. No evidence for occlusion or significant stenosis. Distal anterior tibial artery and distal posterior tibial artery are not visualized. IMPRESSION: 1. Limited evaluation due to patient obesity 2. No arterial stenosis or occlusion. Interpreted and Authenticated by: Wilber Verdugo 07/02/18
--- NOTE | 2018-07-02 14:45 | Infectious Disease Prog Note ---
Subjective Patient information: Note initiated : 07/02/18 at 2:43 pm Service Date, if different from initiated Date: [] Patient: Francesca Leon 52 y/o F admitted on 06/27/18 for Left Foot Ulcer. Chief Complaint: [] Principal diagnosis: osteomyelitis with necrotizing infection of left foot Interval history: Patient is postop day 3 after first and second toe ray resection of left foot. She denies any fever, chills. Endorses nausea, had vomiting about 150 mL this morning. Endorses loose stools, 2 since this morning. Nursing mentioned that Reglan has been helping with the nausea and vomiting. Objective Objective Narrative: Alert, awake, oriented x 3 Chest clear to auscultation with occasional crackles at lower lung bases S1-S2 normal, no murmurs heard Bowel sounds present, distended, soft, nontender Left foot wrapped in dressing, no soakage seen Patient has a left arm PICC line - Vital Signs Vital signs: Vital Signs Temp Pulse Pulse Resp BP Pulse Ox 07/02/18 11:54 36.6 C 20 132/69 90 07/02/18 06:56 37.0 C 18 141/74 93 07/02/18 06:40 92 07/02/18 03:16 37.2 C 65 12 98 07/02/18 03:10 132/74 07/01/18 23:47 36.7 C 73 14 154/86 90 07/01/18 23:23 67 14 07/01/18 20:00 36.6 C 68 12 140/68 90 07/01/18 16:00 36.1 C L 16 153/93 93 Intake and Output 07/02/18 07/02/18 07/02/18 05:59 13:59 21:59 Intake Total 250 / 250 780 / 780 Output Total 450 / 450 2150 / 2150 Balance -200 / -200 -1370 / -1370 Intake: IV 50 / 50 100 / 100 Zosyn 3.375 gm In Dextrose 5% 50 / 50 100 / 100 in Water 50 ml @ 100 mls/hr IV Q6H [facility] Rx#:[id number] Oral 200 / 200 680 / 680 Output: Void Amount 400 / 400 1400 / 1400 Urine/Stool Mix 650 / 650 Emesis 50 / 50 100 / 100 Other: Meal Lunch Percent of Meal Consumed 100% Feeding Ability Independent Urine Appearance Clear Urine Color Pale Urine Odor Normal Stool Size Small Moderate Stool Color Brown Brown Stool Consistency Soft Loose Formed # Voids 1 # Bowel Movements 1 1 Intake & Output: Intake & Output 07/02/18 07/02/18 07/02/18 05:59 13:59 21:59 Intake Total 250 / 250 780 / 780 Output Total 450 / 450 2150 / 2150 Balance -200 / -200 -1370 / -1370 Intake: IV 50 / 50 100 / 100 Zosyn 3.375 gm In Dextrose 5% 50 / 50 100 / 100 in Water 50 ml @ 100 mls/hr IV Q6H [facility] Rx#:[id number] Oral 200 / 200 680 / 680 Output: Void Amount 400 / 400 1400 / 1400 Urine/Stool Mix 650 / 650 Emesis 50 / 50 100 / 100 Other: Meal Lunch Percent of Meal Consumed 100% Feeding Ability Independent Urine Appearance Clear Urine Color Pale Urine Odor Normal Stool Size Small Moderate Stool Color Brown Brown Stool Consistency Soft Loose Formed # Voids 1 # Bowel Movements 1 1 - Lab 07/02/18 04:15 07/02/18 09:46 Most recent lab results Calcium 8.9 mg/dl (8.6-10.4) 07/02/18 09:46 Phosphorus 4.2 mg/dL (2.7-4.5) 07/02/18 04:15 Magnesium 2.3 mg/dL (1.6-2.5) 07/02/18 04:15 Microbiology 06/27/18 13:30 Blood Blood Culture - Final 06/27/18 13:30 Blood Blood Culture - Final 06/29/18 14:40 Foot - Left Gram Stain - Final 06/29/18 14:40 Foot - Left Gram Stain - Final 06/29/18 14:40 Foot - Left Anaerobic Culture - Preliminary 06/29/18 14:40 Foot - Left Gram Stain - Final 06/29/18 14:40 Foot - Left Wound Culture - Final Strep agalactiae - (group b) 06/29/18 14:39 Foot - Left Fungal Smear - Final 06/27/18 15:40 Foot - Left Gram Stain - Final 06/27/18 15:40 Foot - Left Wound Culture - Final Strep agalactiae - (group b) Medications Active Medications: Acetaminophen (Tylenol) 650 mg PO Q6HP PRN PRN Reason: PAIN/FEVER > 101 Albuterol Sulfate (Ventolin) 2.5 mg NEB Q2HP PRN PRN Reason: Shortness Of Breath Bupropion HCl (Wellbutrin Xl) 150 mg PO DAILY [facility] Last Admin: 07/02/18 09:31 Dose: 150 mg Dextrose (Dextrose 50%) 0 ml IV UD PRN PRN Reason: Hypoglycemia Diagnostic Test (Pha) (Accu-Chek) 1 each FS ACHS [facility] Last Admin: 07/02/18 12:13 Dose: 1 each Admin: 07/02/18 07:10 Dose: 1 each Admin: 07/01/18 21:03 Dose: 1 each Admin: 07/01/18 17:56 Dose: 1 each Admin: 07/01/18 12:16 Dose: 1 each Escitalopram Oxalate (Lexapro) 20 mg PO DAILY [facility] Last Admin: 07/02/18 09:31 Dose: 20 mg Glucose (Insta-Glucose) 15 gm PO PRN PRN PRN Reason: Hypoglycemia Heparin Sodium (Porcine) (Heparin) 5,000 unit SQ Q12 [facility] Last Admin: 07/02/18 09:31 Dose: 5,000 unit Admin: 07/01/18 21:02 Dose: 5,000 unit Heparin Sodium (Porcine) (Heparin Flush) 2 ml IV Q12 [facility] Last Admin: 07/02/18 09:32 Dose: 2 ml Admin: 07/01/18 21:04 Dose: Hydrogen Peroxide/Benzyl Alcohol (Hydrogen Peroxide) 474 ml TOPICAL UD PRN PRN Reason: DRESSING CHANGES Piperacillin Sod/Tazobactam (Sod 3.375 gm/ Dextrose) 50 mls @ 100 mls/hr IV Q6H [facility] Last Infusion: 07/02/18 12:45 Dose: 0 mls/hr Admin: 07/02/18 12:11 Dose: 100 mls/hr Infusion: 07/02/18 06:40 Dose: 0 mls/hr Admin: 07/02/18 05:55 Dose: 100 mls/hr Infusion: 07/02/18 00:25 Dose: 0 mls/hr Admin: 07/01/18 23:45 Dose: 100 mls/hr Infusion: 07/01/18 18:30 Dose: 0 mls/hr Admin: 07/01/18 17:57 Dose: 100 mls/hr Infusion: 07/01/18 13:00 Dose: 0 mls/hr Admin: 07/01/18 12:17 Dose: 100 mls/hr Insulin Glargine (Lantus) 20 unit SQ BID [facility] Last Admin: 07/02/18 09:32 Dose: Admin: 07/01/18 21:18 Dose: 20 unit Insulin Human Lispro (Humalog) 0 unit SQ ACHS [facility]; Protocol Last Admin: 07/02/18 12:13 Dose: Admin: 07/02/18 07:19 Dose: 4 unit Admin: 07/01/18 21:17 Dose: 4 unit Admin: 07/01/18 19:25 Dose: 4 unit Admin: 07/01/18 12:16 Dose: 6 unit Lorazepam (Ativan) 0.5 - 1 mg PO BIDP PRN PRN Reason: ANXIETY/SEDATION Morphine Sulfate (Morphine) 2 mg IV Q4HP PRN PRN Reason: PAIN LEVEL > 6 Last Admin: 07/01/18 17:42 Dose: 2 mg Admin: 07/01/18 14:03 Dose: 2 mg Naloxone HCl (Narcan) 0.1 mg IV Q2MIN PRN PRN Reason: Opiate Reversal Ondansetron HCl (Zofran) 4 mg IV Q6HP PRN PRN Reason: Nausea And Vomiting Last Admin: 07/02/18 09:30 Dose: 4 mg Admin: 07/01/18 23:56 Dose: 4 mg Admin: 07/01/18 17:10 Dose: 4 mg Admin: 07/01/18 14:03 Dose: 4 mg Oxycodone HCl (Roxicodone) 5 mg PO Q4HP PRN PRN Reason: PAIN LEVEL 3-6 Last Admin: 07/01/18 14:02 Dose: 5 mg Pantoprazole Sodium (Protonix) 40 mg IV QAMAC [facility] Last Admin: 07/02/18 09:30 Dose: 40 mg Senna (Senokot) 2 tab PO HS [facility] Last Admin: 07/01/18 21:02 Dose: 2 tab Sodium Chloride (Saline Flush) 10 ml IV UD PRN PRN Reason: FLUSH Last Admin: 07/02/18 12:11 Dose: 10 ml Admin: 07/02/18 11:16 Dose: 10 ml Admin: 07/02/18 09:40 Dose: 10 ml Admin: 07/01/18 17:57 Dose: 10 ml Sodium Chloride (Saline Flush) 10 ml IV Q8 [facility] Last Admin: 07/02/18 05:55 Dose: 10 ml Admin: 07/01/18 21:05 Dose: 10 ml Admin: 07/01/18 14:04 Dose: 10 ml Sodium Chloride (Saline Flush) 10 ml IV Q12 [facility] Last Admin: 07/02/18 09:30 Dose: 10 ml Admin: 07/01/18 21:05 Dose: Not Given Non-Admin Reason: Duplicate Assessment and Plan - Narrative A/P Narrative: Assessment: 1. Necrotic skin and soft tissue infection of the left foot with involvement of underlying bone [first and second MP joint and metatarsal heads] and muscles: -Postoperative day 3 after resection of first and second toes Preliminary wound cultures growing group B strep and gram-negative anerobes 2. No sepsis 3. Uncontrolled diabetes with peripheral neuropathy Recommendations: Continue IV Zosyn 3.375 g every 6 hours. If creatinine continues to get worse [increases more than 1.9], change IV Zosyn dosing to 2.25 g every 6 hours Based on MRI, concerns for involvement of surrounding tissues and other toes [ other than first and second toe]. At this point seems reasonable to try hyperbaric oxygen therapy along with antibiotics to make sure the stump wound and surrounding foot continues to heal. But given patient's risk factor of uncontrolled diabetes and obesity, its possible that she may need a TMA in near future Anticipate long-term antibiotics [4-6 weeks]. IV ceftriaxone and oral Flagyl 500 mg every 8 hours seem reasonable options for outpatient antibiotics We will make final recommendations near discharge will follow while inpatient Romario Domingo MD Infectious disease
--- NOTE | 2018-07-02 14:47 | Internal Med Progress Note ---
Medical - PN: Subj Patient information: Note initiated : 07/02/18 at 2:41 pm Service Date, if different from initiated Date: [] Patient: Francesca Leon a 52 y/o F admitted on 06/27/18 for Left Foot Ulcer. Chief Complaint: [] Interval history: Ms. Leon is a 52 year old F with h/o Dm, presents to the ER today with complaints of left foot pain. The patient notes approximately 6 weeks ago she stepped on attack, resulting in a puncture wound. Initially they were trying to clean the wound by local wound care, the patient's wound progressed and the patient was followed by Dr. Bender, The patient according to the gaming pit boss was walking with a tack in her shoe. The patient wound progressively got worse, with increasing redness swelling, increased smell. patient underwent debridement at his office, and was placed on doxycycline and ciprofloxacin, the patient notes that this did not help much and the swelling, infection continued to persist, the patient was started on clindamycin on 06/15/18. The patient on her follow up noted no significant improvement with worsening redness, discharge, patient was therefore asked to come to the hospital for IV antibiotics. The patient is accompanied by her , notes has DM, uncontrolled last a1c was 14. According to the notes of Dr Bender, pt has h/o MRSA Patient in the ER afebrile, HR 77, BP 111/68. 91% on RA Labs show WBC count of 16,800, hemoglobin 12.8 platelets 287. basic neg, glucose elevated to 282. ESR 98 CRP 18.9 and lactic acid is 1.4. Patient clinically appears quite stable is being admitted to the medical floor for further management. Dr Chu has been consulted who will be there to evaluate the patient. I spone with him and he will be here after clinic hours. The CT scan of the foot reviewed, there is gas noted in the tissues however the patient has an open ulcer and has had instrumentation done recently. She does have significant cellulitis positive drainage at this point. And is going to be evaluated by the surgeon soon. I do not believe that this is necrotizing fasciitis at this time given her hemodynamic stability and recent instrumentation which could easily explain the gas. She does have necrotizing soft tissue infection. 06/28 Patient seen and examined no acute overnight events. Wound was in dressing today. She has no acute complaints or concerns. Glucose level high yesterday better today. MRI done today shows severe osteomyelitis cellulitis. Likely plan for surgery tomorrow. Ongoing vancomycin and Zosyn appreciate podiatry and infectious disease input 06/29 Patient seen examined, post op drowsy, a bit hypotensive, bolus x 1 given with good repsonse, another 1L ordered. Patient has post op pain, at the site of surgery, Patient glucose level low normal, being monitied, lantus on hold for now. 06/30 Patient seen and examined no acute overnight events. She was hypotensive yesterday responded well to fluid boluses. This morning again was reported that she was hypotensive. Blood gas was drawn mildly hypoxic and has some CO2 retention. PH of 7.30 patient has a history of sleep apnea has not been wearing a CPAP machine at home. Clinically does not appear to be septic but given that she has been hypotensive postop remove the patient to PCU status for closer monitoring Gomez was placed. Once the patient was moved to the PCU her blood pressure was noted to be normal patient has no chest pain no dizziness no palpitations no cough. 07/01 Patient seen and examined, no acute overnight events. Monitor on PCU status patient's blood pressure has remained stable with no evidence of sepsis or septic shock. Will move the patient back to medical floor. Creatinine 2.1 worsened today, likely secondary to drop in blood pressure as well as antibiotic use. Good urine output patient tolerating p.o. diet well monitor for now consider nephrology consult if it worsens further. Plan of care reviewed with Dr. Chu, I will try to see if wound care can arrange for hyperbaric treatment for this patient. 07/02 Patient seen examiend, no acute overnight issues on the medical floor. Plan to initiate Hyperbaric treatment for the patient USG for left lower extremity vascular evaluation. Dr Dozier will be here on Monday, will initiate HBOT based on indications of Diabetic foot ulcer, Wagners Grade 3 with necrotizing infection. Patient was explained the risks and benefits of this procedure and she agrees for same She denies any emphysema, no shortness of breath ,no h/o CHF, no hearing issues , no sinus issues. Patient educated the procedure and need to be aware to clear her sinuses/ Valsalva maneuver during the dive. Start off with HBOT 2.5ATA for 90 mins with Air breaks per protocol. total for 10 treatments for now. first treatment today. I will be going off service today, Dr Abe Bell will be monitoring the HBOT treatments in my absence and Dr Carbajal will decide need for further treatments. I am allowing the glucose levels to be elevated as I expect these to drop during HBOT treatment. Ativan prn for anxiety labs show improving creatinine, 1.9 today Pertinent ROS: Denies headache, dizziness Denies chest pain, palpitations Denies cough or shortness of breath Denies abdominal pain, nausea or vomiting. - Constitutional Vitals: Vital Signs Temp Pulse Resp BP Pulse Ox 97.9 F 65 20 132/69 90 07/02/18 11:54 07/02/18 03:16 07/02/18 11:54 07/02/18 11:54 07/02/18 11:54 Period Temp Pulse Resp BP Sys/Carrillo Pulse Ox Last 24 Hr 96.9 F-98.9 F 65-73 12-20 132-154/68-93 90-98 Intake and Output 07/02/18 07/02/18 07/02/18 05:59 13:59 21:59 Intake Total 250 / 250 780 / 780 Output Total 450 / 450 2150 / 2150 Balance -200 / -200 -1370 / -1370 Intake & Output: Intake & Output 07/02/18 07/02/18 07/02/18 05:59 13:59 21:59 Intake Total 250 / 250 780 / 780 Output Total 450 / 450 2150 / 2150 Balance -200 / -200 -1370 / -1370 Intake: IV 50 / 50 100 / 100 Zosyn 3.375 gm In Dextrose 5% 50 / 50 100 / 100 in Water 50 ml @ 100 mls/hr IV Q6H [facility] Rx#:[id number] Oral 200 / 200 680 / 680 Output: Void Amount 400 / 400 1400 / 1400 Urine/Stool Mix 650 / 650 Emesis 50 / 50 100 / 100 Other: Meal Lunch Percent of Meal Consumed 100% Feeding Ability Independent Urine Appearance Clear Urine Color Pale Urine Odor Normal Stool Size Small Moderate Stool Color Brown Brown Stool Consistency Soft Loose Formed # Voids 1 # Bowel Movements 1 1 Exam: Constitutional; Afebrile, cooperative, alert, not in distress. Eyes- No icterus, , No periorbital swelling Ears- Ext ear normal, TM reviewed, normal Tympanic membranes, no perforation. Neck- Midline trachea, supple Respiratory system: Air Entry equal on both sides, No crackles or wheezing, no rhonchi. CVS- Rate rhythm regular, S1,S2 heard, no gallop, no rub. Abdomen- Soft nontender abdomen, no organomegaly, no tenderness, no guarding or rigidity, RN CARDIOVASCULAR- AOOx3, moving all extremities, no gross focal deficit noted. Medical - PN: Obj Da - Labs CBC & Chem 7: 07/02/18 04:15 07/02/18 09:46 Labs: Abnormal Lab Results 07/02/18 07/02/18 07/02/18 09:46 04:15 04:15 WBC 11.4 H RBC 3.44 L Hgb 9.6 L Hct 29.1 L RDW Gran % 80.6 H Lymph % (Auto) 12.1 L Gran # 9.2 H Lymph # (Auto) 1.4 L ESR Potassium 5.5 H BUN Creatinine 1.9 H 1.9 H Glucose 147 H 162 H Calcium 8.2 L Phosphorus Alkaline Phosphatase 138 H C-Reactive Protein Albumin 2.5 L Globulin 4.4 H Albumin/Globulin Ratio 0.6 L 07/01/18 07/01/18 06/30/18 04:00 04:00 15:15 WBC RBC 3.42 L Hgb 9.3 L Hct 28.6 L RDW 14.6 H Gran % Lymph % (Auto) 13.8 L Gran # Lymph # (Auto) 1.4 L ESR > 120 H Potassium BUN Creatinine 2.2 H Glucose 164 H Calcium 8.2 L Phosphorus Alkaline Phosphatase 122 H C-Reactive Protein 9.4 H Albumin 2.6 L Globulin 4.0 H Albumin/Globulin Ratio 0.7 L 06/30/18 06/30/18 04:30 04:30 WBC 12.8 H RBC 3.46 L Hgb 9.7 L Hct 29.1 L RDW 14.6 H Gran % Lymph % (Auto) 13.5 L Gran # 9.8 H Lymph # (Auto) ESR Potassium BUN 23 H Creatinine 1.9 H Glucose Calcium 7.9 L Phosphorus 5.8 H Alkaline Phosphatase 125 H C-Reactive Protein Albumin 2.2 L Globulin 4.0 H Albumin/Globulin Ratio 0.6 L Meds: Medications Acetaminophen (Tylenol) 650 mg PO Q6HP PRN PRN Reason: PAIN/FEVER > 101 Albuterol Sulfate (Ventolin) 2.5 mg NEB Q2HP PRN PRN Reason: Shortness Of Breath Bupropion HCl (Wellbutrin Xl) 150 mg PO DAILY [facility] Last Admin: 07/02/18 09:31 Dose: 150 mg Dextrose (Dextrose 50%) 0 ml IV UD PRN PRN Reason: Hypoglycemia Diagnostic Test (Pha) (Accu-Chek) 1 each FS ACHS [facility] Last Admin: 07/02/18 12:13 Dose: 1 each Escitalopram Oxalate (Lexapro) 20 mg PO DAILY [facility] Last Admin: 07/02/18 09:31 Dose: 20 mg Glucose (Insta-Glucose) 15 gm PO PRN PRN PRN Reason: Hypoglycemia Heparin Sodium (Porcine) (Heparin) 5,000 unit SQ Q12 [facility] Last Admin: 07/02/18 09:31 Dose: 5,000 unit Heparin Sodium (Porcine) (Heparin Flush) 2 ml IV Q12 [facility] Last Admin: 07/02/18 09:32 Dose: 2 ml Hydrogen Peroxide/Benzyl Alcohol (Hydrogen Peroxide) 474 ml TOPICAL UD PRN PRN Reason: DRESSING CHANGES Piperacillin Sod/Tazobactam (Sod 3.375 gm/ Dextrose) 50 mls @ 100 mls/hr IV Q6H [facility] Last Infusion: 07/02/18 12:45 Dose: Infused Insulin Glargine (Lantus) 20 unit SQ BID [facility] Last Admin: 07/02/18 09:32 Dose: Not Given Insulin Human Lispro (Humalog) 0 unit SQ [facility]; Protocol Last Admin: 07/02/18 12:13 Dose: Not Given Lorazepam (Ativan) 0.5 - 1 mg PO BIDP PRN PRN Reason: ANXIETY/SEDATION Morphine Sulfate (Morphine) 2 mg IV Q4HP PRN PRN Reason: PAIN LEVEL > 6 Last Admin: 07/01/18 17:42 Dose: 2 mg Naloxone HCl (Narcan) 0.1 mg IV Q2MIN PRN PRN Reason: Opiate Reversal Ondansetron HCl (Zofran) 4 mg IV Q6HP PRN PRN Reason: Nausea And Vomiting Last Admin: 07/02/18 09:30 Dose: 4 mg Oxycodone HCl (Roxicodone) 5 mg PO Q4HP PRN PRN Reason: PAIN LEVEL 3-6 Last Admin: 07/01/18 14:02 Dose: 5 mg Pantoprazole Sodium (Protonix) 40 mg IV QAMAC [facility] Last Admin: 07/02/18 09:30 Dose: 40 mg Senna (Senokot) 2 tab PO HS [facility] Last Admin: 07/01/18 21:02 Dose: 2 tab Sodium Chloride (Saline Flush) 10 ml IV UD PRN PRN Reason: FLUSH Last Admin: 07/02/18 12:11 Dose: 10 ml Sodium Chloride (Saline Flush) 10 ml IV Q8 [facility] Last Admin: 07/02/18 05:55 Dose: 10 ml Sodium Chloride (Saline Flush) 10 ml IV Q12 [facility] Last Admin: 07/02/18 09:30 Dose: 10 ml Medical - PN: A/P - Time Spent With Patient Total time spent is greater than 50% in coordination of care (as documented) at patient's floor/unit and/or counseling patient: - Narrative A/P Narrative: A/P Diabetic Rucker grade 3, necrotizing soft tissue infection with acute osteomyelitis- s/p surgery today, on zosyn per ID, PICC line to be placed, wound care to follow. Start patient on Hyperbaric treatment, 2.5ATA 90 mins, total of 10 for now, and will likely need more, to decide based on response. Goal of treatment is limb salvation, ascertain demarcation of and living tissue in a necrotizing anaerobic diabetic infection. Patient was being treated by Dr Bender (gaming pit boss) as outpatient prior to admission. Infection ongoing for nearly 6 weeks, failed outpatient debridement and antibiotics. Hypotension- Resolved, monitor now, DM uncontrolled - a1c high, 13.5, glucose levels ok post op, glucose levels trending up again, start lantus with 20 bid, allow elevated glucose, given HBOT can cause hypoglycemia Acute Kidney injury- ATN due to low bp, vs medication related, Making good urine , Creat now trending down, 1.9 today HTN- hold lisinopril given renal failure, bp stable VIVEK not using cpap as dog chewed the mask, use cpap while here. Depression/Anxiety- Resume citalopram/ buspirone DVT hep sq Diet carb consistent Ful code Medical - PN: Qual - VTE Deep Vein Thrombosis/Pulmonary Embolism Present on Admission: No
--- NOTE | 2018-07-02 15:58 | Surgical Pathology Report ---
HISTOLOGY SPECIMEN MICROSCOPIC DIAGNOSIS FOOT, LEFT FIRST AND SECOND TOE, AMPUTATION: -- EPIDERMAL ULCERATION, NECROSIS AND ABSCESS. -- CHRONIC OSTEOMYELITIS. (RLF:djf) PROCEDURAL IMPRESSION Acute osteomyelitis of left foot. GROSS DESCRIPTION The specimen is received in formalin as left first and second toe partial ray and consists of two amputated toes, a portion of skin and underlying soft tissue and a portion of articular bone. The great toe measures 7.5 x 3 x 3.5 cm. The bone and soft tissue extends beyond the resected skin surface, 1.5 cm on the dorsal aspect and 1.6 cm on the plantar aspect. The toe is deviated laterally and on the medial edge there is a firm umanzor lesion with ulcer that spans 2.8 by approximately 1.5 cm. This lesion is partially bisected at the margin. The nail plate is present and measures 1.5 cm (m-l) by 2.5 cm (a-p). The second toe measures 5.5 cm in length by 2.0 anteriorly and 3.5 cm posteriorly. The bone extends up to 2 cm beyond the medial resected margin and 1.5 cm from the lateral resected margin. On the dorsal aspect of the skin there is a broad area of skin slippage with partial ulceration and green-umanzor discoloration that measures up to 2.5 x 1.8 cm. The portion of skin and underlying bone has a firm umanzor callused area with partial ulcer and pink-red areas of discoloration. The portion of skin is an irregular rectangle in shape and measures up to 4.9 x 2 cm with a thickness of up to 1.5 cm. The region of callus and ulcer measures up to 3.2 x 2 cm. The portion of articular bone has a smooth resection margin and measures 3 x 2.2 x 1.7 cm. The entire specimen is decalcified prior to sectioning. The surgical margins are inked black. A cross section of great toe (including superficial bone) and ulcer submitted in A1; cross sections of both bones with ulceration and underlying bone submitted in A2; cross sections of smaller toe submitted in A3; cross sections of separate skin and soft tissue including ulcerated area of callus submitted in A4; articular bone, including area of irregular articular cartilage submitted in A5. (ACP:adj) Electronically Signed by: Dorothy Arteaga M.D.
[2018-07-02] MEDS ORDERED: LORazepam 2 MG/ML VIAL IV PRN (18:22)
--- NOTE | 2018-07-02 20:22 | Orthopedic Progress Note ---
Subjective Patient information: Note initiated : 07/02/18 at 8:20 pm Service Date, if different from initiated Date: [] Patient: Francesca Leon 52 y/o F admitted on 06/27/18 for Left Foot Ulcer. PODIATRY Note- Chief Complaint: [ some nausea and vomiting today, pain controlled] Principal diagnosis: osteomyelitis with necrotizing infection of left foot Interval history: nausea and vomiting today Pertinent ROS: see above Objective Vital signs: Vital Signs Temp Pulse Pulse Resp BP Pulse Ox 07/02/18 16:00 97.8 F 20 149/89 91 07/02/18 11:54 97.9 F 20 132/69 90 07/02/18 06:56 98.6 F 18 141/74 93 07/02/18 06:40 92 07/02/18 03:16 98.9 F 65 12 98 07/02/18 03:10 132/74 07/01/18 23:47 98.1 F 73 14 154/86 90 07/01/18 23:23 67 14 Intake and Output 07/02/18 07/02/18 07/02/18 05:59 13:59 21:59 Intake Total 250 / 250 780 / 780 240 / 240 Output Total 450 / 450 2150 / 2150 1775 / 1775 Balance -200 / -200 -1370 / -1370 -1535 / -1535 Intake: IV 50 / 50 100 / 100 Zosyn 3.375 gm In Dextrose 5% 50 / 50 100 / 100 in Water 50 ml @ 100 mls/hr IV Q6H [facility] Rx#:[id number] Oral 200 / 200 680 / 680 240 / 240 Output: Void Amount 400 / 400 1400 / 1400 1775 / 1775 Urine/Stool Mix 650 / 650 Emesis 50 / 50 100 / 100 Other: Meal Lunch Dinner Percent of Meal Consumed 100% 100% Feeding Ability Independent Independent Urine Appearance Clear Clear Urine Color Pale Pale Urine Odor Normal Normal Stool Size Small Moderate Small Stool Color Brown Brown Brown Stool Consistency Soft Loose Formed Formed # Voids 1 # Bowel Movements 1 1 1 Weight 330 lb Patient Weight 07/03/18 05:59 Weight 330 lb Intake & Output: Intake & Output 07/02/18 07/02/18 07/02/18 05:59 13:59 21:59 Intake Total 250 / 250 780 / 780 240 / 240 Output Total 450 / 450 2150 / 2150 1775 / 1775 Balance -200 / -200 -1370 / -1370 -1535 / -1535 Weight 330 lb Intake: IV 50 / 50 100 / 100 Zosyn 3.375 gm In Dextrose 5% 50 / 50 100 / 100 in Water 50 ml @ 100 mls/hr IV Q6H [facility] Rx#:[id number] Oral 200 / 200 680 / 680 240 / 240 Output: Void Amount 400 / 400 1400 / 1400 1775 / 1775 Urine/Stool Mix 650 / 650 Emesis 50 / 50 100 / 100 Other: Meal Lunch Dinner Percent of Meal Consumed 100% 100% Feeding Ability Independent Independent Urine Appearance Clear Clear Urine Color Pale Pale Urine Odor Normal Normal Stool Size Small Moderate Small Stool Color Brown Brown Brown Stool Consistency Soft Loose Formed Formed # Voids 1 # Bowel Movements 1 1 1 Incision clean and dry: No (increase in drainage from open wound) Weight bearing status: partial (hwb to transfer) Additional Comments: plantar medial flap demarcating with dusky tissues- this is also true of the plantar 3rd ray tissues there is probing into the dorsal compartment as well as the interspace between the remaining 1rst and 2nd metatarsals.There is an increase in demarcating devitalized tissues within the wound. the remaining toes appear vital with immediate cft. the lateral forefoot appears to be healthy.There is no streaking erythema or calor noted and the edema to the leg is lessened. - Periperhal Pulses Peripheral pulses: 1+: posterior tibialis (L), 2+: dorsalis pedis (L) - Labs CBC & BMP: 07/02/18 04:15 07/02/18 09:46 Labs: 07/02/18 07/01/18 06/30/18 04:15 04:00 04:30 Hgb 9.6 L 9.3 L 9.7 L Hct 29.1 L 28.6 L 29.1 L 06/29/18 06/28/18 06/27/18 04:30 04:28 14:37 Hgb 11.1 L 11.4 L 12.8 Hct 34.4 L 35.0 L 36.8 Assessment and Plan (1) Osteomyelitis of foot, left, acute POD#1 Necrotizing Left foot infection with partial first and second ray amputation/guillotine with extensive debridement of bone, muscle, fascia. Overall, improved, 3rd toe remains viable and the remaining foot is improved in color and i cannot express purulence or appreciate any crepitus. The foot was flushed with 50mL of Vashe/nss and the planes were repacked with 1/4" packing. DSD applied. Will perform daily. Verbal order for 2mg-4mg of morphine now. Pt requires pre-flush/dressing pain medication. -Wound cultures -aerobic, anaerobic and fungal taken in OR pending. -prior wound cultures Grp B step with GNR that did not grow out- suggestive of anaerobics. -Continue zosyn as per Dr. Domingo -Agree with Dr. Castellon to have pt evaluated for HBO -WBC dropped to 12.8 from 16.8 -CRP ordered -Foot and ankle, leg xrays ordered to evaluate for gas Plan Options discussed with patient, patient's , Dr Castellon and nursing. 1) daily flush out with reduced daily packing- If tissues remain viable,and granulation tissue is produced, will transfer to woundcare for VAC placement and ask Dr Carbajal to consider grafting. 2) If not responding, will consider transmetatarsal amputation 3) If not responding will ask Dr Rodrigues to evaluate for BKA Hypotension- improved. pt in ICU being followed- pt had near half liter blood loss in surgery and dropped Hbg from 12.8 to 9.7 since admission. Acute Renal - pt had high Vanco troughs, Vanco held and running fluids as per medicine. DM with neuropathy - fluctuating bs stable. Albumin- 2.2 Recomended nutrition evaluation for pt with uncontrolled blood sugars Status: Acute - Narrative A/P Narrative: Overall, a step back in the wounds appearance with new, demarcating dusky tissues in the medial plantar flap and under the 3rd mpj area and an increase in the devitalized tissues and fibrin in the fascial planes- We discussed going back to the OR for a TMA. I will call Dr Rodrigues to see if he feels that this limb is salvageable. The wound was flushed with nss/Vashe and dressed with DSD Continue abx as per Dr Domingo OR cultures Prevotella and Group B Strep. Slight bump in wbc will order CRP and ESR heel wb to transfer
[2018-07-02] MEDS: SENNOSIDES 1 TABLET PO SCH (23:10)
[2018-07-03] MEDS: PIPERACILLIN SODIUM/TAZOBACTAM 3.375 GM in DEXTROSE 5% IN WATER 50 ML IV SCH ×6 (00:05→23:59)
[2018-07-03] MEDS: 0.9 % SODIUM CHLORIDE 10 ML SYRINGE IV SCH ×5 (05:16→22:20)
[2018-07-03] MEDS: INSULIN LISPRO 1 UNIT/0.01 ML UNIT SQ SCH ×4 (06:48→20:49)
[2018-07-03 06:55] LABS: Basophils # (Auto) 0.1 K/mcL (0.0-0.3); Basophils % (Auto) 0.8 % (0.0-2.0); Eosinophils # (Auto) 0.2 K/mcL (0.0-0.7); Eosinophils % (Auto) 2.1 % (0.0-7.0); Granulocytes % (Auto) 78.7 % (38.0-78.0); Lymphocytes # (Auto) 1.4 K/mcL (1.5-4.8); Lymphocytes % (Auto) 12.9 % (15.5-49.0); Mean Corpuscular HGB Conc 33.2 g/dL (31.0-36.0); Mean Corpuscular Hemoglobin 27.6 pg (26.0-34.0); Monocytes # (Auto) 0.6 K/mcL (0.1-0.9); Monocytes % (Auto) 5.5 % (1.0-12.0); Platelet Count 255 K/mcL (140-440); RBC 3.39 M/mcL (4.00-5.20); Red Cell Distribution Width 14.5 % (11.5-14.5)
[2018-07-03] MEDS: PANTOPRAZOLE 40 MG VIAL IV SCH (06:57)
[2018-07-03] MEDS: 0.9 % SODIUM CHLORIDE 10 ML SYRINGE IV PRN ×4 (06:58→15:43)
[2018-07-03] MEDS: LORazepam 1 MG TABLET PO PRN (06:58)
[2018-07-03] MEDS: ONDANSETRON 4 MG/2 ML VIAL IV PRN (07:07)
[2018-07-03 07:34] LABS: ALT/SGPT 18 U/l (0-40); Albumin 2.7 gm/dL (3.2-5.2); Albumin/Globulin Ratio 0.6 (1.0-2.3); Alkaline Phosphatase 122 U/L (39-117); Bilirubin,Direct < 0.2 mg/dL (0.0-0.3); Blood Urea Nitrogen 17 mg/dl (6-20); Gamma Glutamyl Transpeptidase 25 U/L (5-36); Uric Acid 4.2 mg/dL (2.5-8.0)
[2018-07-03] MEDS: oxyCODONE HCL 5 MG TABLET PO PRN ×2 (08:11→21:05)
[2018-07-03] MEDS: INSULIN GLARGINE, HUMAN 1 UNIT/0.01 ML SQ SCH ×2 (09:00→20:50)
[2018-07-03] MEDS: buPROPion 150 MG TAB.XL.24H PO SCH (11:40)
[2018-07-03] MEDS: ESCITALOPRAM 20 MG TABLET PO SCH (11:41)
[2018-07-03] MEDS: HEPARIN 5,000 UNIT/ML VIAL SQ SCH ×2 (11:41→20:50)
--- NOTE | 2018-07-03 14:35 | Internal Med Progress Note ---
Medical - PN: Subj Patient information: Note initiated : 07/03/18 at 2:32 pm Service Date, if different from initiated Date: [] Patient: Francesca Leon a 52 y/o F admitted on 06/27/18 for Left Foot Ulcer. Interval history: Ms. Leon is a 52 year old F with h/o Dm, presents to the ER today with complaints of left foot pain. The patient notes approximately 6 weeks ago she stepped on attack, resulting in a puncture wound. Initially they were trying to clean the wound by local wound care, the patient's wound progressed and the patient was followed by Dr. Bender, The patient according to the aluminum pourer was walking with a tack in her shoe. The patient wound progressively got worse, with increasing redness swelling, increased smell. patient underwent debridement at his office, and was placed on doxycycline and ciprofloxacin, the patient notes that this did not help much and the swelling, infection continued to persist, the patient was started on clindamycin on 06/15/18. The patient on her follow up noted no significant improvement with worsening redness, discharge, patient was therefore asked to come to the hospital for IV antibiotics. The patient is accompanied by her , notes has DM, uncontrolled last a1c was 14. According to the notes of Dr Bender, pt has h/o MRSA Patient in the ER afebrile, HR 77, BP 111/68. 91% on RA Labs show WBC count of 16,800, hemoglobin 12.8 platelets 287. basic neg, glucose elevated to 282. ESR 98 CRP 18.9 and lactic acid is 1.4. Patient clinically appears quite stable is being admitted to the medical floor for further management. Dr Chu has been consulted who will be there to evaluate the patient. I spone with him and he will be here after clinic hours. The CT scan of the foot reviewed, there is gas noted in the tissues however the patient has an open ulcer and has had instrumentation done recently. She does have significant cellulitis positive drainage at this point. And is going to be evaluated by the surgeon soon. I do not believe that this is necrotizing fasciitis at this time given her hemodynamic stability and recent instrumentation which could easily explain the gas. She does have necrotizing soft tissue infection. 06/28 Patient seen and examined no acute overnight events. Wound was in dressing today. She has no acute complaints or concerns. Glucose level high yesterday better today. MRI done today shows severe osteomyelitis cellulitis. Likely plan for surgery tomorrow. Ongoing vancomycin and Zosyn appreciate podiatry and infectious disease input 06/29 Patient seen examined, post op drowsy, a bit hypotensive, bolus x 1 given with good repsonse, another 1L ordered. Patient has post op pain, at the site of surgery, Patient glucose level low normal, being monitied, lantus on hold for now. 06/30 Patient seen and examined no acute overnight events. She was hypotensive yesterday responded well to fluid boluses. This morning again was reported that she was hypotensive. Blood gas was drawn mildly hypoxic and has some CO2 retention. PH of 7.30 patient has a history of sleep apnea has not been wearing a CPAP machine at home. Clinically does not appear to be septic but given that she has been hypotensive postop remove the patient to PCU status for closer monitoring Gomez was placed. Once the patient was moved to the PCU her blood pressure was noted to be normal patient has no chest pain no dizziness no palpitations no cough. 07/01 Patient seen and examined, no acute overnight events. Monitor on PCU status patient's blood pressure has remained stable with no evidence of sepsis or septic shock. Will move the patient back to medical floor. Creatinine 2.1 worsened today, likely secondary to drop in blood pressure as well as antibiotic use. Good urine output patient tolerating p.o. diet well monitor for now consider nephrology consult if it worsens further. Plan of care reviewed with Dr. Chu, I will try to see if wound care can arrange for hyperbaric treatment for this patient. 07/02 Patient seen examiend, no acute overnight issues on the medical floor. Plan to initiate Hyperbaric treatment for the patient US[facility] for left lower extremity vascular evaluation. Dr Carbajal will be here on Monday, will initiate HBOT based on indications of Diabetic foot ulcer, Wagners Grade 3 with necrotizing infection. Patient was explained the risks and benefits of this procedure and she agrees for same She denies any emphysema, no shortness of breath ,no h/o CHF, no hearing issues , no sinus issues. Patient educated the procedure and need to be aware to clear her sinuses/ Valsalva maneuver during the dive. Start off with HBOT 2.5ATA for 90 mins with Air breaks per protocol. total for 10 treatments for now. first treatment today. I will be going off service today, Dr Abe Bell will be monitoring the HBOT treatments in my absence and Dr Carbajal will decide need for further treatments. I am allowing the glucose levels to be elevated as I expect these to drop during HBOT treatment. Ativan prn for anxiety labs show improving creatinine, 1.9 today 07/03 Patient seen and examined. Discussed with Dr. Chu on the phone this morning. During his exam of the wound yesterday evening, noted worsening wound margins and wound bed. Concern for need for amputation. Dr. Rodrigues has been consult it for further evaluation of the wound and consideration of amputation as well as what level. Patient tolerated HBOT better today after pre-session lorazepam. She is concerned about the possibility of having to have an amputation. Pertinent ROS: No fever, no chills, no abdominal pain. Some intermittent nausea. Appetite okay, but is nothing by mouth right now. - Constitutional Vitals: Vital Signs Temp Pulse Resp BP Pulse Ox 97.1 F 65 18 145/74 93 07/03/18 11:49 07/03/18 11:49 07/03/18 11:49 07/03/18 11:49 07/03/18 11:49 Period Temp Pulse Resp BP Sys/Carrillo Pulse Ox Last 24 Hr 96.5 F-99.0 F 65-73 14-20 124-169/68-98 89-97 Intake and Output 07/03/18 07/03/18 07/03/18 05:59 13:59 21:59 Intake Total 1190 / 1190 410 / 410 Output Total 1150 / 1150 1375 / 1375 Balance 40 / 40 -965 / -965 Intake & Output: Intake & Output 07/03/18 07/03/18 07/03/18 05:59 13:59 21:59 Intake Total 1190 / 1190 410 / 410 Output Total 1150 / 1150 1375 / 1375 Balance 40 / 40 -965 / -965 Intake: IV 50 / 50 100 / 100 Zosyn 3.375 gm In Dextrose 5% 50 / 50 100 / 100 in Water 50 ml @ 100 mls/hr IV Q6H [facility] Rx#:[id number] Oral 1140 / 1140 310 / 310 Output: Void Amount 1150 / 1150 350 / 350 Urine/Stool Mix 1025 / 1025 Other: Meal Breakfast Percent of Meal Consumed 50% Urine Appearance Clear Clear Urine Color Bright Yellow Pale Urine Odor Normal Stool Size Small Moderate Stool Color Brown Brown Stool Consistency Soft Loose Formed Exam: General: In bed, no acute distress Chest: Clear, good aeration Cardiovascular: Regular Abdomen: Obese, soft, active bowel sounds, nontender Musculoskeletal: Left foot is dressed, dressings are dry. Neuro: Alert, oriented to person, place, situation, displays insight into her situation. Medical - PN: Obj Da - Labs CBC & Chem 7: 07/03/18 05:28 07/03/18 05:28 Labs: Abnormal Lab Results 07/03/18 07/03/18 07/02/18 05:28 05:28 21:01 WBC RBC 3.39 L Hgb 9.4 L Hct 28.2 L RDW Gran % 78.7 H Lymph % (Auto) 12.9 L Gran # 8.4 H Lymph # (Auto) 1.4 L ESR Potassium Carbon Dioxide 31 H Anion Gap 7.0 L Creatinine 1.8 H Glucose 161 H Calcium Alkaline Phosphatase 122 H C-Reactive Protein 3.9 H Albumin 2.7 L Globulin 4.2 H Albumin/Globulin Ratio 0.6 L 07/02/18 07/02/18 07/02/18 21:01 09:46 04:15 WBC RBC Hgb Hct RDW Gran % Lymph % (Auto) Gran # Lymph # (Auto) ESR 117 H Potassium 5.5 H Carbon Dioxide Anion Gap Creatinine 1.9 H 1.9 H Glucose 147 H 162 H Calcium 8.2 L Alkaline Phosphatase 138 H C-Reactive Protein Albumin 2.5 L Globulin 4.4 H Albumin/Globulin Ratio 0.6 L 07/02/18 07/01/18 07/01/18 04:15 04:00 04:00 WBC 11.4 H RBC 3.44 L 3.42 L Hgb 9.6 L 9.3 L Hct 29.1 L 28.6 L RDW 14.6 H Gran % 80.6 H Lymph % (Auto) 12.1 L 13.8 L Gran # 9.2 H Lymph # (Auto) 1.4 L 1.4 L ESR > 120 H Potassium Carbon Dioxide Anion Gap Creatinine 2.2 H Glucose 164 H Calcium 8.2 L Alkaline Phosphatase 122 H C-Reactive Protein Albumin 2.6 L Globulin 4.0 H Albumin/Globulin Ratio 0.7 L 06/30/18 15:15 WBC RBC Hgb Hct RDW Gran % Lymph % (Auto) Gran # Lymph # (Auto) ESR Potassium Carbon Dioxide Anion Gap Creatinine Glucose Calcium Alkaline Phosphatase C-Reactive Protein 9.4 H Albumin Globulin Albumin/Globulin Ratio Microbiology 06/29/18 14:40 Gram Stain - Final Foot - Left Gram Stain - Final Anaerobic Culture - Preliminary Prevotella species Gram Stain - Final Wound Culture - Final Strep agalactiae - (group b) 06/27/18 13:30 Blood Culture - Final Blood 06/27/18 13:30 Blood Culture - Final Blood Meds: Medications Acetaminophen (Tylenol) 650 mg PO Q6HP PRN PRN Reason: PAIN/FEVER > 101 Albuterol Sulfate (Ventolin) 2.5 mg NEB Q2HP PRN PRN Reason: Shortness Of Breath Bupropion HCl (Wellbutrin Xl) 150 mg PO DAILY [facility] Last Admin: 07/03/18 11:40 Dose: 150 mg Dextrose (Dextrose 50%) 0 ml IV UD PRN PRN Reason: Hypoglycemia Diagnostic Test (Pha) (Accu-Chek) 1 each FS ACHS [facility] Last Admin: 07/03/18 11:45 Dose: 1 each Escitalopram Oxalate (Lexapro) 20 mg PO DAILY [facility] Last Admin: 07/03/18 11:41 Dose: 20 mg Glucose (Insta-Glucose) 15 gm PO PRN PRN PRN Reason: Hypoglycemia Heparin Sodium (Porcine) (Heparin) 5,000 unit SQ Q12 [facility] Last Admin: 07/03/18 11:41 Dose: 5,000 unit Heparin Sodium (Porcine) (Heparin Flush) 2 ml IV Q12 [facility] Last Admin: 07/03/18 12:43 Dose: 2 ml Hydrogen Peroxide/Benzyl Alcohol (Hydrogen Peroxide) 474 ml TOPICAL UD PRN PRN Reason: DRESSING CHANGES Piperacillin Sod/Tazobactam (Sod 3.375 gm/ Dextrose) 50 mls @ 100 mls/hr IV Q6H [facility] Last Infusion: 07/03/18 12:42 Dose: Infused Insulin Glargine (Lantus) 20 unit SQ BID [facility] Last Admin: 07/03/18 09:00 Dose: Not Given Insulin Human Lispro (Humalog) 0 unit SQ [facility]; Protocol Last Admin: 07/03/18 12:01 Dose: 6 unit Lorazepam (Ativan) 0.5 - 1 mg PO BIDP PRN PRN Reason: ANXIETY/SEDATION Last Admin: 07/03/18 06:58 Dose: 1 mg Lorazepam (Ativan) 1 mg IV UD PRN PRN Reason: ANXIETY/SEDATION Metoclopramide HCl (Reglan) 5 mg IV Q8HP PRN PRN Reason: Nausea Morphine Sulfate (Morphine) 2 mg IV Q4HP PRN PRN Reason: PAIN LEVEL > 6 Last Admin: 07/01/18 17:42 Dose: 2 mg Naloxone HCl (Narcan) 0.1 mg IV Q2MIN PRN PRN Reason: Opiate Reversal Ondansetron HCl (Zofran) 4 mg IV Q6HP PRN PRN Reason: Nausea And Vomiting Last Admin: 07/03/18 07:07 Dose: 4 mg Oxycodone HCl (Roxicodone) 5 mg PO Q4HP PRN PRN Reason: PAIN LEVEL 3-6 Last Admin: 07/03/18 08:11 Dose: 5 mg Pantoprazole Sodium (Protonix) 40 mg IV QAMAC [facility] Last Admin: 07/03/18 06:57 Dose: 40 mg Senna (Senokot) 2 tab PO HS [facility] Last Admin: 07/02/18 23:10 Dose: Not Given Sodium Chloride (Saline Flush) 10 ml IV UD PRN PRN Reason: FLUSH Last Admin: 07/03/18 11:44 Dose: 10 ml Sodium Chloride (Saline Flush) 10 ml IV Q8 [facility] Last Admin: 07/03/18 05:16 Dose: 10 ml Sodium Chloride (Saline Flush) 10 ml IV Q12 [facility] Last Admin: 07/03/18 12:10 Dose: 10 ml Medical - PN: A/P - Time Spent With Patient Total time spent is greater than 50% in coordination of care (as documented) at patient's floor/unit and/or counseling patient: Greater than 35 minutes - Narrative A/P Narrative: 52 y/o female admitted with left foot wound in the setting of uncontrolled T2 Dm. Diabetic Rucker grade 3, necrotizing soft tissue infection with acute osteomyelitis- s/p debridement, but with soft tissue breakdown. On zosyn per ID, PICC line placed, wound care following. Started on Hyperbaric treatment, 2.5ATA 90 mins, total of 10 planned (first on afternoon 07/02), though may hold if needs further surgery. Goal of treatment is limb salvation, ascertain demarcation of and living tissue in a necrotizing anaerobic diabetic infection. However, worsening exam 07/02 evening, to be seen by ortho (Dr. Rodrigues) regarding possible limb salvage vs. need for amputation. Patient was being treated by Dr Bender (aluminum pourer) as outpatient prior to admission. Infection ongoing for nearly 6 weeks, failed outpatient debridement and antibiotics. Hypotension- Resolved, monitor now, DM uncontrolled - a1c high, 13.5, glucose levels ok post op, glucose levels trending up again, started Lantus with 20 bid, allow elevated glucose, given HBOT can cause hypoglycemia Acute Kidney injury- ATN due to low bp, vs medication related, Making good urine , Creat now trending down, 1.8 on Monday HTN- hold lisinopril given renal failure, bp stable VIVEK not using CPAP as dog chewed the mask, use CPAP while here. Depression/Anxiety- Resume citalopram/ buspirone Medical - PN: Qual - VTE Deep Vein Thrombosis/Pulmonary Embolism Present on Admission: No
[2018-07-03] MEDS: METOCLOPRAMIDE 10 MG/2 ML VIAL IV PRN (15:42)
--- NOTE | 2018-07-03 15:46 | Orthopedic Consult Note ---
History of Present Illness - [facility] Patient information: Note initiated : 07/03/18 at 3:44 pm Service Date, if different from initiated Date: [] Patient: Francesca Leno 52 y/o F admitted on 06/27/18 for Left Foot Ulcer. Chief Complaint: [] Consult date: 07/03/18 Requesting physician: Clive Chu Consult reason: joint pain, fracture, low back pain, back pain, neck pain, other History of present illness: chronic infection left foot with nonhealing wound Review of Systems Constitutional: as per HPI (below the knee amputation 4 years ago and) Musculoskeletal: as per HPI Integumentary: skin ulcer (2 inch medial foot ulceration) Past History Past medical history: per Barrel Tester note Medications and Allergies Home Medications Medication Instructions Recorded Confirmed Type Escitalopram [Lexapro] 20 mg PO DAILY 06/27/18 06/27/18 History Glimepiride [Amaryl] 2 mg PO DAILY 06/27/18 06/27/18 History Insulin Glargine, Human [Lantus] 30 unit SQ HS 06/27/18 06/27/18 History Insulin Glargine, Human [Lantus] 40 unit SQ DAILY 06/27/18 06/27/18 History Lisinopril [Zestril] 20 mg PO DAILY 06/27/18 06/27/18 History buPROPion [Wellbutrin Xl] 150 mg PO DAILY 06/27/18 06/27/18 History Allergies Allergy/AdvReac Type Severity Reaction Status Date / Time Hydromorphone [From Dilaudid] Allergy Mild Rash Verified 06/27/18 16:36 Physical Examination - Ankle & Foot left Ankle appearance: swelling Foot appearance: other (ulceration to bone) Foot swelling: medial Tenderness with palpation: none ROM: dorsiflexion: 10 degrees ROM: plantarflexion: 40 degrees Strength: dorsiflexion: 5/5 Strength: plantarflexion: 5/5 Tests: achilles rupture tests: negative Assessment and Plan - Narrative A/P Narrative: Pulses intact Nonhealing grade 3 ulcer with wxposed bone Risk of needing BKA Jose L and I agree with indication for transmetatarsal amputation. High risk pt due to chronic poor control of diabetes and long history f smoking. ankle feels supple so will hold on Achilless tendon lengthening/PAR discussed with patient
[2018-07-03] MEDS ORDERED: ONDANSETRON 4 MG/2 ML VIAL IV ONE (17:35)
[2018-07-03] MEDS ORDERED: MIDAZOLAM 2 MG/2 ML VIAL IV ONE (17:35)
[2018-07-03] MEDS ORDERED: fentaNYL 100 MCG/2 ML VIAL IV ONE (17:35)
[2018-07-03] MEDS ORDERED: LIDOCAINE HCL/PF 100 MG/5 ML SYRINGE IV ONE (17:35)
[2018-07-03] MEDS ORDERED: PROPOFOL 200 MG/20 ML VIAL IV ONE (17:35)
[2018-07-03] MEDS ORDERED: GLYCOPYRROLATE 0.2 MG/ML VIAL IV ONE (17:35)
[2018-07-03] MEDS ORDERED: KETAMINE 100 MG/ML ML IV ONE (17:35)
[2018-07-03] MEDS ORDERED: ACETAMINOPHEN 1,000 MG/100 ML BOTTLE IV ONE (18:09)
[2018-07-03] MEDS ORDERED: IPRATROPIUM/ALBUTEROL 3 ML AMPUL.NEB NEB PRN (18:09)
[2018-07-03] MEDS ORDERED: PROMETHAZINE 25 MG/ML VIAL IV PRN (18:09)
[2018-07-03] MEDS ORDERED: MEPERIDINE 25 MG/ML SYRINGE IV PRN (18:09)
[2018-07-03] MEDS ORDERED: METOCLOPRAMIDE 10 MG/2 ML VIAL IV PRN (18:09)
[2018-07-03] MEDS ORDERED: fentaNYL 100 MCG/2 ML VIAL IV PRN (18:09)
[2018-07-03] MEDS ORDERED: LACTATED RINGERS 1,000 ML IV SCH (18:15)
[2018-07-03] MEDS ORDERED: TRANEXAMIC ACID 1,000 MG/10 ML VIAL IV ONE (18:48)
[2018-07-03] MEDS ORDERED: BUPIVACAINE 0.5% 50 ML VIAL IJ ONE (18:48)
--- NOTE | 2018-07-03 19:13 | Brief Operative Note ---
Date of procedure: 07/03/18 Pre-op diagnosis: abscess with ulceration left foot Post-op diagnosis: same Procedure: left transmetatarsal amputation Grafts/Implants: No Anesthesia: ROSMERY Surgeon: Romero Rodrigues Gun Synchronizer: Clive Chu Estimated blood loss (cc): 200 Tourniquet Time (Minutes): 20 Specimens Removed/Pathology: other (proximal second MT biopsy and culture) Condition: other (satisfactory) Disposition: PACU
--- NOTE | 2018-07-03 19:43 | XRay Report ---
CLINICAL INFORMATION: Postsurgical follow-up TECHNIQUE: AP and lateral left foot COMPARISON: Preoperative left foot dated 06/30/2018. Preoperative MRI scan dated 06/28/2018 FINDINGS: Status post transmetatarsal left midfoot amputation. No soft tissue gas. No evidence for osteomyelitis in the remaining metatarsal stumps. Incidental note is made of degenerative disease in the navicular first cuneiform joint IMPRESSION: Status post transmetatarsal amputation Interpreted and Authenticated by: Wilber Verdugo 07/03/18
--- NOTE | 2018-07-03 20:10 | Infectious Disease Prog Note ---
Subjective Patient information: Note initiated : 07/03/18 at 8:04 pm Service Date, if different from initiated Date: [] Patient: Francesca Leon 52 y/o F admitted on 06/27/18 for Left Foot Ulcer. Chief Complaint: [] Principal diagnosis: osteomyelitis with necrotizing infection of left foot Interval history: Pt doing fine, but worried about her foot. Denied any fever, chills, n/v, diarrhea. Was NPO since am, and underwent Lt TMA this evening. Objective Objective Narrative: ao x 3, in nad Lt foot: swollen in forefoot area, the stump base looks swollen, with macerated tissue, adherent exudate at the base. Rest of the left lower extremity looks ok - Vital Signs Vital signs: Vital Signs Temp Pulse Pulse Resp BP BP Pulse Ox 07/03/18 19:49 36.4 C 79 14 158/89 93 07/03/18 19:39 36.4 C 81 14 154/89 94 07/03/18 19:29 36.3 C 80 80 15 167/94 94 07/03/18 19:24 36.3 C 80 16 154/96 96 07/03/18 19:19 36.4 C 79 14 145/74 147/82 99 07/03/18 19:14 36.2 C 97 H 15 164/91 98 07/03/18 16:15 36.7 C 16 160/76 95 07/03/18 11:49 36.2 C 65 18 145/74 93 07/03/18 07:45 93 07/03/18 07:21 35.8 C L 68 14 168/80 93 07/03/18 05:20 97 07/03/18 05:15 89 L 07/03/18 03:38 36.7 C 71 18 169/98 91 07/02/18 23:00 37.2 C 73 18 124/68 91 Intake and Output 07/03/18 07/03/18 07/03/18 05:59 13:59 21:59 Intake Total 1190 / 1190 410 / 410 Output Total 1150 / 1150 1375 / 1375 650 / 650 Balance 40 / 40 -965 / -965 -650 / -650 Intake: IV 50 / 50 100 / 100 Zosyn 3.375 gm In Dextrose 5% 50 / 50 100 / 100 in Water 50 ml @ 100 mls/hr IV Q6H [facility] Rx#:[id number] Oral 1140 / 1140 310 / 310 Output: Void Amount 1150 / 1150 350 / 350 Urine/Stool Mix 1025 / 1025 650 / 650 Other: Meal Breakfast Percent of Meal Consumed 50% Urine Appearance Clear Clear Urine Color Bright Yellow Pale Urine Odor Normal Stool Size Small Moderate Moderate Stool Color Brown Brown Brown Stool Consistency Soft Loose Loose Formed Intake & Output: Intake & Output 07/03/18 07/03/18 07/03/18 05:59 13:59 21:59 Intake Total 1190 / 1190 410 / 410 Output Total 1150 / 1150 1375 / 1375 650 / 650 Balance 40 / 40 -965 / -965 -650 / -650 Intake: IV 50 / 50 100 / 100 Zosyn 3.375 gm In Dextrose 5% 50 / 50 100 / 100 in Water 50 ml @ 100 mls/hr IV Q6H [facility] Rx#:[id number] Oral 1140 / 1140 310 / 310 Output: Void Amount 1150 / 1150 350 / 350 Urine/Stool Mix 1025 / 1025 650 / 650 Other: Meal Breakfast Percent of Meal Consumed 50% Urine Appearance Clear Clear Urine Color Bright Yellow Pale Urine Odor Normal Stool Size Small Moderate Moderate Stool Color Brown Brown Brown Stool Consistency Soft Loose Loose Formed - Lab 07/03/18 05:28 07/03/18 05:28 Most recent lab results Calcium 8.6 mg/dl (8.6-10.4) 07/03/18 05:28 Phosphorus 4.3 mg/dL (2.7-4.5) 07/03/18 05:28 Magnesium 2.2 mg/dL (1.6-2.5) 07/03/18 05:28 Microbiology 06/29/18 14:39 Foot - Left Fungal Smear - Final 06/29/18 14:39 Foot - Left Fungal Culture - Preliminary 06/29/18 14:40 Foot - Left Gram Stain - Final 06/29/18 14:40 Foot - Left Gram Stain - Final 06/29/18 14:40 Foot - Left Anaerobic Culture - Preliminary Prevotella species 06/29/18 14:40 Foot - Left Gram Stain - Final 06/29/18 14:40 Foot - Left Wound Culture - Final Strep agalactiae - (group b) 06/27/18 13:30 Blood Blood Culture - Final 06/27/18 13:30 Blood Blood Culture - Final 06/27/18 15:40 Foot - Left Gram Stain - Final 06/27/18 15:40 Foot - Left Wound Culture - Final Strep agalactiae - (group b) Medications Active Medications: Acetaminophen (Tylenol) 650 mg PO Q6HP PRN PRN Reason: PAIN/FEVER > 101 Hydrocodone Bitart/Acetaminophen ([place] 10/325mg) 1 - 2 tab PO Q4-6HP PRN PRN Reason: Pain Albuterol Sulfate (Ventolin) 2.5 mg NEB Q2HP PRN PRN Reason: Shortness Of Breath Albuterol/Ipratropium (Duoneb) 3 ml NEB ONCE PRN PRN Reason: Wheezing Stop: 07/03/18 20:10 Bupropion HCl (Wellbutrin Xl) 150 mg PO DAILY [facility] Last Admin: 07/03/18 11:40 Dose: 150 mg Admin: 07/02/18 09:31 Dose: 150 mg Dextrose (Dextrose 50%) 0 ml IV UD PRN PRN Reason: Hypoglycemia Diagnostic Test (Pha) (Accu-Chek) 1 each FS ACHS [facility] Last Admin: 07/03/18 16:00 Dose: 1 each Admin: 07/03/18 11:45 Dose: 1 each Admin: 07/03/18 06:47 Dose: 1 each Admin: 07/02/18 22:53 Dose: 1 each Admin: 07/02/18 16:47 Dose: 1 each Admin: 07/02/18 12:13 Dose: 1 each Admin: 07/02/18 07:10 Dose: 1 each Admin: 07/01/18 21:03 Dose: 1 each Admin: 07/01/18 17:56 Dose: 1 each Admin: 07/01/18 12:16 Dose: 1 each Escitalopram Oxalate (Lexapro) 20 mg PO DAILY [facility] Last Admin: 07/03/18 11:41 Dose: 20 mg Admin: 07/02/18 09:31 Dose: 20 mg Fentanyl (Sublimaze) 25 mcg IV Q2M PRN PRN Reason: Pain Stop: 07/03/18 20:10 Last Admin: 07/03/18 19:21 Dose: 100 mcg Comments: 1921 25mcg 1923 25mcg 1925 25mcg 1927 25 mcg Glucose (Insta-Glucose) 15 gm PO PRN PRN PRN Reason: Hypoglycemia Heparin Sodium (Porcine) (Heparin) 5,000 unit SQ Q12 [facility] Last Admin: 07/03/18 11:41 Dose: 5,000 unit Admin: 07/02/18 22:53 Dose: 5,000 unit Admin: 07/02/18 09:31 Dose: 5,000 unit Admin: 07/01/18 21:02 Dose: 5,000 unit Heparin Sodium (Porcine) (Heparin Flush) 2 ml IV Q12 [facility] Last Admin: 07/03/18 12:43 Dose: 2 ml Admin: 07/03/18 11:44 Dose: 2 ml Admin: 07/02/18 22:54 Dose: 2 ml Comments: 2ml per port per protocol Admin: 07/02/18 09:32 Dose: 2 ml Admin: 07/01/18 21:04 Dose: Hydrogen Peroxide/Benzyl Alcohol (Hydrogen Peroxide) 474 ml TOPICAL UD PRN PRN Reason: DRESSING CHANGES Piperacillin Sod/Tazobactam (Sod 3.375 gm/ Dextrose) 50 mls @ 100 mls/hr IV Q6H [facility] Last Infusion: 07/03/18 12:42 Dose: 0 mls/hr Admin: 07/03/18 12:01 Dose: 100 mls/hr Infusion: 07/03/18 06:00 Dose: 0 mls/hr Admin: 07/03/18 05:20 Dose: 100 mls/hr Infusion: 07/03/18 00:36 Dose: 0 mls/hr Admin: 07/03/18 00:05 Dose: 100 mls/hr Infusion: 07/02/18 18:45 Dose: 0 mls/hr Admin: 07/02/18 18:15 Dose: 100 mls/hr Infusion: 07/02/18 12:45 Dose: 0 mls/hr Admin: 07/02/18 12:11 Dose: 100 mls/hr Infusion: 07/02/18 06:40 Dose: 0 mls/hr Admin: 07/02/18 05:55 Dose: 100 mls/hr Infusion: 07/02/18 00:25 Dose: 0 mls/hr Admin: 07/01/18 23:45 Dose: 100 mls/hr Infusion: 07/01/18 18:30 Dose: 0 mls/hr Admin: 07/01/18 17:57 Dose: 100 mls/hr Infusion: 07/01/18 13:00 Dose: 0 mls/hr Admin: 07/01/18 12:17 Dose: 100 mls/hr Lactated Ringer's (Lactated Ringers) 1,000 mls @ 20 mls/hr IV .Q24H [facility] Stop: 07/03/18 20:10 Insulin Glargine (Lantus) 20 unit SQ BID [facility] Last Admin: 07/03/18 09:00 Dose: Admin: 07/02/18 22:54 Dose: 20 unit Admin: 07/02/18 09:32 Dose: Admin: 07/01/18 21:18 Dose: 20 unit Insulin Human Lispro (Humalog) 0 unit SQ ACHS [facility]; Protocol Last Admin: 07/03/18 16:00 Dose: Not Given Non-Admin Reason: NPO Admin: 07/03/18 12:01 Dose: 6 unit Admin: 07/03/18 06:48 Dose: Admin: 07/02/18 22:54 Dose: 10 unit Admin: 07/02/18 17:02 Dose: 8 unit Admin: 07/02/18 12:13 Dose: Admin: 07/02/18 07:19 Dose: 4 unit Admin: 07/01/18 21:17 Dose: 4 unit Admin: 07/01/18 19:25 Dose: 4 unit Admin: 07/01/18 12:16 Dose: 6 unit Lorazepam (Ativan) 0.5 - 1 mg PO BIDP PRN PRN Reason: ANXIETY/SEDATION Last Admin: 07/03/18 06:58 Dose: 1 mg Lorazepam (Ativan) 1 mg IV UD PRN PRN Reason: ANXIETY/SEDATION Meperidine HCl (Demerol) 12.5 mg IV Q5M PRN PRN Reason: Shivering Stop: 07/03/18 20:10 Metoclopramide HCl (Reglan) 5 mg IV Q8HP PRN PRN Reason: Nausea Last Admin: 07/03/18 15:42 Dose: 5 mg Metoclopramide HCl (Reglan) 10 mg IV ONCE PRN PRN Reason: Nausea And Vomiting Stop: 07/03/18 20:10 Morphine Sulfate (Morphine) 2 mg IV Q4HP PRN PRN Reason: PAIN LEVEL > 6 Last Admin: 07/01/18 17:42 Dose: 2 mg Admin: 07/01/18 14:03 Dose: 2 mg Morphine Sulfate (Morphine) 2 mg IV Q5MIN PRN PRN Reason: Pain Stop: 07/03/18 20:10 Morphine Sulfate (Morphine) 4 mg IV Q2HP PRN PRN Reason: PAIN LEVEL > 6 Naloxone HCl (Narcan) 0.1 mg IV Q2MIN PRN PRN Reason: Opiate Reversal Ondansetron HCl (Zofran) 4 mg IV Q6HP PRN PRN Reason: Nausea And Vomiting Last Admin: 07/03/18 07:07 Dose: 4 mg Admin: 07/02/18 09:30 Dose: 4 mg Admin: 07/01/18 23:56 Dose: 4 mg Admin: 07/01/18 17:10 Dose: 4 mg Admin: 07/01/18 14:03 Dose: 4 mg Oxycodone HCl (Roxicodone) 5 mg PO Q4HP PRN PRN Reason: PAIN LEVEL 3-6 Last Admin: 07/03/18 08:11 Dose: 5 mg Admin: 07/01/18 14:02 Dose: 5 mg Pantoprazole Sodium (Protonix) 40 mg IV QAMAC [facility] Last Admin: 07/03/18 06:57 Dose: 40 mg Admin: 07/02/18 09:30 Dose: 40 mg Promethazine HCl (Phenergan) 6.25 mg IV Q15M PRN PRN Reason: Nausea And Vomiting Stop: 07/03/18 20:10 Senna (Senokot) 2 tab PO HS [facility] Last Admin: 07/02/18 23:10 Dose: Not Given Non-Admin Reason: Loose Stool Admin: 07/01/18 21:02 Dose: 2 tab Sodium Chloride (Saline Flush) 10 ml IV UD PRN PRN Reason: FLUSH Last Admin: 07/03/18 15:43 Dose: 10 ml Admin: 07/03/18 11:44 Dose: 10 ml Admin: 07/03/18 07:08 Dose: 10 ml Admin: 07/03/18 06:58 Dose: 10 ml Admin: 07/02/18 12:11 Dose: 10 ml Admin: 07/02/18 11:16 Dose: 10 ml Admin: 07/02/18 09:40 Dose: 10 ml Admin: 07/01/18 17:57 Dose: 10 ml Sodium Chloride (Saline Flush) 10 ml IV Q8 [facility] Last Admin: 07/03/18 15:48 Dose: Admin: 07/03/18 05:16 Dose: 10 ml Admin: 07/02/18 22:55 Dose: 10 ml Admin: 07/02/18 16:01 Dose: Admin: 07/02/18 05:55 Dose: 10 ml Admin: 07/01/18 21:05 Dose: 10 ml Admin: 07/01/18 14:04 Dose: 10 ml Sodium Chloride (Saline Flush) 10 ml IV Q12 [facility] Last Admin: 07/03/18 12:10 Dose: 10 ml Admin: 07/02/18 22:55 Dose: 10 ml Admin: 07/02/18 09:30 Dose: 10 ml Admin: 07/01/18 21:05 Dose: Not Given Non-Admin Reason: Duplicate Assessment and Plan - Narrative A/P Narrative: Assessment: 1. Necrotic skin and soft tissue infection of the left forefoot with involvement of underlying bone: -Postoperative day 3 after resection of first and second toes, and POD 0 after Lt TMA Preliminary wound cultures growing group B strep and Prevotella spp 2. No sepsis 3. Uncontrolled diabetes with peripheral neuropathy Recommendations: Continue IV Zosyn 3.375 g every 6 hours. Anticipate long-term antibiotics [4-6 weeks]. IV ceftriaxone and oral Flagyl 500 mg every 8 hours seem reasonable options for outpatient antibiotics - Wound vac might be considered prior to discharge with outpatient wound care follow up will make final recommendations near discharge will follow while inpatient Romario Domingo MD Infectious disease
[2018-07-03] MEDS: SENNOSIDES 1 TABLET PO SCH (22:03)
[2018-07-03] MEDS: HYDROcodone/APAP 10/325MG TABLET PO PRN (22:08)
[2018-07-04] MEDS: oxyCODONE HCL 5 MG TABLET PO PRN ×2 (01:28→07:25)
[2018-07-04] MEDS: HYDROcodone/APAP 10/325MG TABLET PO PRN ×3 (04:57→20:43)
[2018-07-04] MEDS: PIPERACILLIN SODIUM/TAZOBACTAM 3.375 GM in DEXTROSE 5% IN WATER 50 ML IV SCH ×4 (05:09→23:50)
[2018-07-04] MEDS: 0.9 % SODIUM CHLORIDE 10 ML SYRINGE IV SCH ×5 (06:54→20:22)
[2018-07-04 06:58] LABS: Basophils # (Auto) 0 K/mcL (0.0-0.3); Basophils % (Auto) 0.2 % (0.0-2.0); Eosinophils # (Auto) 0.4 K/mcL (0.0-0.7); Eosinophils % (Auto) 3.2 % (0.0-7.0); Granulocytes % (Auto) 75.2 % (38.0-78.0); Lymphocytes # (Auto) 2.1 K/mcL (1.5-4.8); Lymphocytes % (Auto) 15.9 % (15.5-49.0); Mean Corpuscular Hemoglobin 27.7 pg (26.0-34.0); Monocytes # (Auto) 0.7 K/mcL (0.1-0.9); Monocytes % (Auto) 5.5 % (1.0-12.0); Platelet Count 275 K/mcL (140-440); RBC 3.29 M/mcL (4.00-5.20); Red Cell Distribution Width 14.7 % (11.5-14.5)
--- NOTE | 2018-07-04 07:03 | Orthopedic Progress Note ---
Subjective Patient information: Note initiated : 07/04/18 at 7:01 am Service Date, if different from initiated Date: [] PODIATRY NOTE Patient: Francesca Leon 52 y/o F admitted on 06/27/18 for Left Foot Ulcer. Chief Complaint: [necrotizing left foot infection] Principal diagnosis: osteomyelitis with necrotizing infection of left foot Interval history: Pt had a left foot partial first and second ray amputation 06/28/18, followed by TMA 07/03/18 Pertinent ROS: denies vomiting, night sweats, chills, fevers, sob, cp. Pt is experiencing nausea. Objective Vital signs: Vital Signs Temp Pulse Pulse Resp BP BP BP 07/04/18 03:30 97.1 F 64 12 102/67 07/04/18 00:10 67 12 07/03/18 23:08 97.2 F 72 12 115/68 07/03/18 21:38 74 147/98 07/03/18 21:08 76 146/93 07/03/18 20:54 77 136/87 07/03/18 20:38 74 140/92 07/03/18 20:23 77 154/103 07/03/18 20:08 97.3 F 77 12 153/97 07/03/18 19:49 97.6 F 79 14 158/89 07/03/18 19:39 97.5 F 81 14 154/89 07/03/18 19:29 97.4 F 80 80 15 167/94 07/03/18 19:24 97.4 F 80 16 154/96 07/03/18 19:19 97.5 F 79 14 145/74 147/82 07/03/18 19:14 97.2 F 97 H 15 164/91 07/03/18 16:15 98.0 F 16 160/76 07/03/18 11:49 97.1 F 65 18 145/74 07/03/18 07:45 07/03/18 07:21 96.5 F L 68 14 168/80 Pulse Ox 07/04/18 03:30 97 07/04/18 00:10 96 07/03/18 23:08 95 07/03/18 21:38 95 07/03/18 21:08 95 07/03/18 20:54 95 07/03/18 20:38 90 07/03/18 20:23 93 07/03/18 20:08 96 07/03/18 19:49 93 07/03/18 19:39 94 07/03/18 19:29 94 07/03/18 19:24 96 07/03/18 19:19 99 07/03/18 19:14 98 07/03/18 16:15 95 07/03/18 11:49 93 07/03/18 07:45 93 07/03/18 07:21 93 Intake and Output 07/03/18 07/04/18 07/04/18 21:59 05:59 13:59 Intake Total 150 / 150 1225 / 1225 Output Total 650 / 650 500 / 500 Balance -500 / -500 725 / 725 Intake: IV 150 / 150 1100 / 1100 Zosyn 3.375 gm In Dextrose 5% 50 / 50 100 / 100 in Water 50 ml @ 100 mls/hr IV Q6H [facility] 234 BEDS AT [facility] Rx#:[id number] Oral 125 / 125 Output: Void Amount 500 / 500 Urine/Stool Mix 650 / 650 Other: Stool Size Moderate Stool Color Brown Stool Consistency Loose # Voids 1 Weight 331 lb Intake & Output: Intake & Output 07/03/18 07/04/18 07/04/18 21:59 05:59 13:59 Intake Total 150 / 150 1225 / 1225 Output Total 650 / 650 500 / 500 Balance -500 / -500 725 / 725 Weight 331 lb Intake: IV 150 / 150 1100 / 1100 Zosyn 3.375 gm In Dextrose 5% 50 / 50 100 / 100 in Water 50 ml @ 100 mls/hr IV Q6H [facility] Rx#:[id number] Oral 125 / 125 Output: Void Amount 500 / 500 Urine/Stool Mix 650 / 650 Other: Stool Size Moderate Stool Color Brown Stool Consistency Loose # Voids 1 Incision clean and dry: No (has woundvac with good seal with minimal drainage) Dressing: Yes clean, Yes dry Weight bearing status: partial Neurological exam IM: Yes motor sensory deficit Extremities exam IM: Yes tenderness (mild superficial irritation dorsal ankle - visualized dorsal foot and plantar flap with good color/turgor) - Periperhal Pulses Peripheral pulses: 2+: dorsalis pedis (L), posterior tibialis (L) - Labs CBC & BMP: 07/04/18 04:30 07/03/18 05:28 Labs: Orthopedic Labs 07/03/18 07/03/18 16:29 16:17 POC PT 11.2 L POC INR 0.9 APTT 41 H 07/04/18 07/03/18 07/02/18 04:30 05:28 04:15 Hgb 9.1 L 9.4 L 9.6 L Hct 27.6 L 28.2 L 29.1 L 07/01/18 06/30/18 06/29/18 04:00 04:30 04:30 Hgb 9.3 L 9.7 L 11.1 L Hct 28.6 L 29.1 L 34.4 L 06/28/18 06/27/18 04:28 14:37 Hgb 11.4 L 12.8 Hct 35.0 L 36.8 Assessment and Plan (1) Osteomyelitis of foot, left, acute POD#1 Necrotizing Left foot infection with partial first and second ray amputation/guillotine with extensive debridement of bone, muscle, fascia. Overall, improved, 3rd toe remains viable and the remaining foot is improved in color and i cannot express purulence or appreciate any crepitus. The foot was flushed with 50mL of Vashe/nss and the planes were repacked with 1/4" packing. DSD applied. Will perform daily. Verbal order for 2mg-4mg of morphine now. Pt requires pre-flush/dressing pain medication. -Wound cultures -aerobic, anaerobic and fungal taken in OR pending. -prior wound cultures Grp B step with GNR that did not grow out- suggestive of anaerobics. -Continue zosyn as per Dr. Domingo -Agree with Dr. Castellon to have pt evaluated for HBO -WBC dropped to 12.8 from 16.8 -CRP ordered -Foot and ankle, leg xrays ordered to evaluate for gas Plan Options discussed with patient, patient's , Dr Castellon and nursing. 1) daily flush out with reduced daily packing- If tissues remain viable,and granulation tissue is produced, will transfer to woundcare for VAC placement and ask Dr Carbajal to consider grafting. 2) If not responding, will consider transmetatarsal amputation 3) If not responding will ask Dr Rodrigues to evaluate Status: Acute - Narrative A/P Narrative: PODIATRY NOTE POD #1 Left foot TMA Doing well, pain controlled, mild nausea Wound VAC intact with good seal and minimal serosanquineous drainage hwb to bathroom and back abx as per Dr Domingo discharge planning for next 2 day Long discussion about need for better BS control and consequences of not doing so.
[2018-07-04] MEDS: INSULIN LISPRO 1 UNIT/0.01 ML UNIT SQ SCH ×4 (07:06→20:21)
[2018-07-04] MEDS: LORazepam 1 MG TABLET PO PRN (07:07)
[2018-07-04] MEDS: PANTOPRAZOLE 40 MG VIAL IV SCH (07:08)
[2018-07-04 07:20] LABS: ALT/SGPT 15 U/l (0-40); Albumin 2.8 gm/dL (3.2-5.2); Albumin/Globulin Ratio 0.7 (1.0-2.3); Alkaline Phosphatase 108 U/L (39-117); Bilirubin,Direct < 0.2 mg/dL (0.0-0.3); Blood Urea Nitrogen 17 mg/dl (6-20); Gamma Glutamyl Transpeptidase 23 U/L (5-36); Uric Acid 4.1 mg/dL (2.5-8.0)
--- NOTE | 2018-07-04 08:07 | Infectious Disease Prog Note ---
Subjective Patient information: Note initiated : 07/04/18 at 8:03 am Service Date, if different from initiated Date: [] Patient: Francesca Leon 52 y/o F admitted on 06/27/18 for Left Foot Ulcer. Chief Complaint: [] Principal diagnosis: osteomyelitis with necrotizing infection of left foot Interval history: Complains of feeling tired and left foot stump pain. Denies any nausea, vomiting, diarrhea, fever, difficulty swallowing, pain or redness at the PICC line site. Shows a area of excoriation on her left forearm, concerned that it is secondary to tape. Discussed with her the plan to do 4 weeks of IV antibiotics through PICC line as outpatient. Objective Objective Narrative: Alert, oriented x3 No thrush Chest clear to auscultation on anterior lung sharma S1-S2 normal, no murmurs Left foot stump wrapped in surgical dressing with a wound VAC Left arm PICC line: Looks normal, no redness, swelling Left arm: Linear area of excoriation - Vital Signs Vital signs: Vital Signs Temp Pulse Pulse Resp BP BP BP 07/04/18 07:00 35.7 C L 16 127/84 07/04/18 03:30 36.2 C 64 12 102/67 07/04/18 00:10 67 12 07/03/18 23:08 36.2 C 72 12 115/68 07/03/18 21:38 74 147/98 07/03/18 21:08 76 146/93 07/03/18 20:54 77 136/87 07/03/18 20:38 74 140/92 07/03/18 20:23 77 154/103 07/03/18 20:08 36.3 C 77 12 153/97 07/03/18 19:49 36.4 C 79 14 158/89 07/03/18 19:39 36.4 C 81 14 154/89 07/03/18 19:29 36.3 C 80 80 15 167/94 07/03/18 19:24 36.3 C 80 16 154/96 07/03/18 19:19 36.4 C 79 14 145/74 147/82 07/03/18 19:14 36.2 C 97 H 15 164/91 07/03/18 16:15 36.7 C 16 160/76 07/03/18 11:49 36.2 C 65 18 145/74 Pulse Ox 07/04/18 07:00 98 07/04/18 03:30 97 07/04/18 00:10 96 07/03/18 23:08 95 07/03/18 21:38 95 07/03/18 21:08 95 07/03/18 20:54 95 07/03/18 20:38 90 07/03/18 20:23 93 07/03/18 20:08 96 07/03/18 19:49 93 07/03/18 19:39 94 07/03/18 19:29 94 07/03/18 19:24 96 07/03/18 19:19 99 07/03/18 19:14 98 07/03/18 16:15 95 07/03/18 11:49 93 Intake and Output 07/03/18 07/04/18 07/04/18 21:59 05:59 13:59 Intake Total 150 / 150 1225 / 1225 110 / 110 Output Total 650 / 650 500 / 500 Balance -500 / -500 725 / 725 110 / 110 Intake: IV 150 / 150 1100 / 1100 Zosyn 3.375 gm In Dextrose 5% 50 / 50 100 / 100 in Water 50 ml @ 100 mls/hr IV Q6H [facility] Rx#:[id number] Oral 125 / 125 110 / 110 Output: Void Amount 500 / 500 Urine/Stool Mix 650 / 650 Other: Meal Breakfast Percent of Meal Consumed 50% Feeding Ability Independent Stool Size Moderate Stool Color Brown Stool Consistency Loose # Voids 1 Weight 150.139 kg Intake & Output: Intake & Output 07/03/18 07/04/18 07/04/18 21:59 05:59 13:59 Intake Total 150 / 150 1225 / 1225 110 / 110 Output Total 650 / 650 500 / 500 Balance -500 / -500 725 / 725 110 / 110 Weight 150.139 kg Intake: IV 150 / 150 1100 / 1100 Zosyn 3.375 gm In Dextrose 5% 50 / 50 100 / 100 in Water 50 ml @ 100 mls/hr IV Q6H [facility] Rx#:[id number] Oral 125 / 125 110 / 110 Output: Void Amount 500 / 500 Urine/Stool Mix 650 / 650 Other: Meal Breakfast Percent of Meal Consumed 50% Feeding Ability Independent Stool Size Moderate Stool Color Brown Stool Consistency Loose # Voids 1 - Lab 07/04/18 04:30 07/04/18 04:30 Most recent lab results Calcium 8.6 mg/dl (8.6-10.4) 07/04/18 04:30 Phosphorus 5.4 mg/dL (2.7-4.5) H 07/04/18 04:30 Magnesium 2.2 mg/dL (1.6-2.5) 07/04/18 04:30 Microbiology 06/29/18 14:39 Foot - Left Fungal Smear - Final 06/29/18 14:39 Foot - Left Fungal Culture - Preliminary 06/29/18 14:40 Foot - Left Gram Stain - Final 06/29/18 14:40 Foot - Left Gram Stain - Final 06/29/18 14:40 Foot - Left Anaerobic Culture - Preliminary Prevotella species 06/29/18 14:40 Foot - Left Gram Stain - Final 06/29/18 14:40 Foot - Left Wound Culture - Final Strep agalactiae - (group b) 06/27/18 13:30 Blood Blood Culture - Final 06/27/18 13:30 Blood Blood Culture - Final 06/27/18 15:40 Foot - Left Gram Stain - Final 06/27/18 15:40 Foot - Left Wound Culture - Final Strep agalactiae - (group b) Medications Active Medications: Acetaminophen (Tylenol) 650 mg PO Q6HP PRN PRN Reason: PAIN/FEVER > 101 Hydrocodone Bitart/Acetaminophen (Fourmile 10/325mg) 1 - 2 tab PO Q4-6HP PRN PRN Reason: Pain Last Admin: 07/04/18 04:57 Dose: 2 tab Admin: 07/03/18 22:08 Dose: 2 tab Albuterol Sulfate (Ventolin) 2.5 mg NEB Q2HP PRN PRN Reason: Shortness Of Breath Bupropion HCl (Wellbutrin Xl) 150 mg PO DAILY [facility] Last Admin: 07/03/18 11:40 Dose: 150 mg Admin: 07/02/18 09:31 Dose: 150 mg Dextrose (Dextrose 50%) 0 ml IV UD PRN PRN Reason: Hypoglycemia Diagnostic Test (Pha) (Accu-Chek) 1 each FS ACHS [facility] Last Admin: 07/04/18 07:04 Dose: 1 each Admin: 07/03/18 20:26 Dose: 1 each Admin: 07/03/18 16:00 Dose: 1 each Admin: 07/03/18 11:45 Dose: 1 each Admin: 07/03/18 06:47 Dose: 1 each Admin: 07/02/18 22:53 Dose: 1 each Admin: 07/02/18 16:47 Dose: 1 each Admin: 07/02/18 12:13 Dose: 1 each Admin: 07/02/18 07:10 Dose: 1 each Admin: 07/01/18 21:03 Dose: 1 each Admin: 07/01/18 17:56 Dose: 1 each Admin: 07/01/18 12:16 Dose: 1 each Escitalopram Oxalate (Lexapro) 20 mg PO DAILY [facility] Last Admin: 07/03/18 11:41 Dose: 20 mg Admin: 07/02/18 09:31 Dose: 20 mg Glucose (Insta-Glucose) 15 gm PO PRN PRN PRN Reason: Hypoglycemia Heparin Sodium (Porcine) (Heparin) 5,000 unit SQ Q12 [facility] Last Admin: 07/03/18 20:50 Dose: 5,000 unit Admin: 07/03/18 11:41 Dose: 5,000 unit Admin: 07/02/18 22:53 Dose: 5,000 unit Admin: 07/02/18 09:31 Dose: 5,000 unit Admin: 07/01/18 21:02 Dose: 5,000 unit Heparin Sodium (Porcine) (Heparin Flush) 2 ml IV Q12 [facility] Last Admin: 07/03/18 20:44 Dose: 2 ml Comments: 2 ml per port per protocol Admin: 07/03/18 12:43 Dose: 2 ml Admin: 07/03/18 11:44 Dose: 2 ml Admin: 07/02/18 22:54 Dose: 2 ml Comments: 2ml per port per protocol Admin: 07/02/18 09:32 Dose: 2 ml Admin: 07/01/18 21:04 Dose: Hydrogen Peroxide/Benzyl Alcohol (Hydrogen Peroxide) 474 ml TOPICAL UD PRN PRN Reason: DRESSING CHANGES Piperacillin Sod/Tazobactam (Sod 3.375 gm/ Dextrose) 50 mls @ 100 mls/hr IV Q6H [facility] Last Infusion: 07/04/18 05:30 Dose: 0 mls/hr Admin: 07/04/18 05:09 Dose: 100 mls/hr Infusion: 07/04/18 00:30 Dose: 0 mls/hr Admin: 07/03/18 23:59 Dose: 100 mls/hr Infusion: 07/03/18 18:30 Dose: 100 mls/hr Admin: 07/03/18 18:00 Dose: 100 mls/hr Infusion: 07/03/18 12:42 Dose: 0 mls/hr Admin: 07/03/18 12:01 Dose: 100 mls/hr Infusion: 07/03/18 06:00 Dose: 0 mls/hr Admin: 07/03/18 05:20 Dose: 100 mls/hr Infusion: 07/03/18 00:36 Dose: 0 mls/hr Admin: 07/03/18 00:05 Dose: 100 mls/hr Infusion: 07/02/18 18:45 Dose: 0 mls/hr Admin: 07/02/18 18:15 Dose: 100 mls/hr Infusion: 07/02/18 12:45 Dose: 0 mls/hr Admin: 07/02/18 12:11 Dose: 100 mls/hr Infusion: 07/02/18 06:40 Dose: 0 mls/hr Admin: 07/02/18 05:55 Dose: 100 mls/hr Infusion: 07/02/18 00:25 Dose: 0 mls/hr Admin: 07/01/18 23:45 Dose: 100 mls/hr Infusion: 07/01/18 18:30 Dose: 0 mls/hr Admin: 07/01/18 17:57 Dose: 100 mls/hr Infusion: 07/01/18 13:00 Dose: 0 mls/hr Admin: 07/01/18 12:17 Dose: 100 mls/hr Insulin Glargine (Lantus) 20 unit SQ BID [facility] Last Admin: 07/03/18 20:50 Dose: 20 unit Admin: 07/03/18 09:00 Dose: Admin: 07/02/18 22:54 Dose: 20 unit Admin: 07/02/18 09:32 Dose: Admin: 07/01/18 21:18 Dose: 20 unit Insulin Human Lispro (Humalog) 0 unit SQ ACHS [facility]; Protocol Last Admin: 07/04/18 07:06 Dose: Not Given Non-Admin Reason: No Coverage Needed Admin: 07/03/18 20:49 Dose: 4 unit Admin: 07/03/18 16:00 Dose: Not Given Non-Admin Reason: NPO Admin: 07/03/18 12:01 Dose: 6 unit Admin: 07/03/18 06:48 Dose: Admin: 07/02/18 22:54 Dose: 10 unit Admin: 07/02/18 17:02 Dose: 8 unit Admin: 07/02/18 12:13 Dose: Admin: 07/02/18 07:19 Dose: 4 unit Admin: 07/01/18 21:17 Dose: 4 unit Admin: 07/01/18 19:25 Dose: 4 unit Admin: 07/01/18 12:16 Dose: 6 unit Lorazepam (Ativan) 0.5 - 1 mg PO BIDP PRN PRN Reason: ANXIETY/SEDATION Last Admin: 07/04/18 07:07 Dose: 1 mg Admin: 07/03/18 06:58 Dose: 1 mg Lorazepam (Ativan) 1 mg IV UD PRN PRN Reason: ANXIETY/SEDATION Metoclopramide HCl (Reglan) 5 mg IV Q8HP PRN PRN Reason: Nausea Last Admin: 07/03/18 15:42 Dose: 5 mg Morphine Sulfate (Morphine) 2 mg IV Q4HP PRN PRN Reason: PAIN LEVEL > 6 Last Admin: 07/01/18 17:42 Dose: 2 mg Admin: 07/01/18 14:03 Dose: 2 mg Morphine Sulfate (Morphine) 4 mg IV Q2HP PRN PRN Reason: PAIN LEVEL > 6 Last Admin: 07/04/18 05:08 Dose: 4 mg Admin: 07/04/18 02:46 Dose: 4 mg Admin: 07/03/18 23:58 Dose: 4 mg Admin: 07/03/18 22:07 Dose: 4 mg Admin: 07/03/18 20:19 Dose: 4 mg Naloxone HCl (Narcan) 0.1 mg IV Q2MIN PRN PRN Reason: Opiate Reversal Ondansetron HCl (Zofran) 4 mg IV Q6HP PRN PRN Reason: Nausea And Vomiting Last Admin: 07/03/18 07:07 Dose: 4 mg Admin: 07/02/18 09:30 Dose: 4 mg Admin: 07/01/18 23:56 Dose: 4 mg Admin: 07/01/18 17:10 Dose: 4 mg Admin: 07/01/18 14:03 Dose: 4 mg Oxycodone HCl (Roxicodone) 5 mg PO Q4HP PRN PRN Reason: PAIN LEVEL 3-6 Last Admin: 07/04/18 07:25 Dose: 5 mg Admin: 07/04/18 01:28 Dose: 5 mg Admin: 07/03/18 21:05 Dose: 5 mg Admin: 07/03/18 08:11 Dose: 5 mg Admin: 07/01/18 14:02 Dose: 5 mg Pantoprazole Sodium (Protonix) 40 mg IV QAMAC [facility] Last Admin: 07/04/18 07:08 Dose: 40 mg Admin: 07/03/18 06:57 Dose: 40 mg Admin: 07/02/18 09:30 Dose: 40 mg Senna (Senokot) 2 tab PO HS [facility] Last Admin: 07/03/18 22:03 Dose: Not Given Non-Admin Reason: Loose Stool Admin: 07/02/18 23:10 Dose: Not Given Non-Admin Reason: Loose Stool Admin: 07/01/18 21:02 Dose: 2 tab Sodium Chloride (Saline Flush) 10 ml IV UD PRN PRN Reason: FLUSH Last Admin: 07/03/18 15:43 Dose: 10 ml Admin: 07/03/18 11:44 Dose: 10 ml Admin: 07/03/18 07:08 Dose: 10 ml Admin: 07/03/18 06:58 Dose: 10 ml Admin: 07/02/18 12:11 Dose: 10 ml Admin: 07/02/18 11:16 Dose: 10 ml Admin: 07/02/18 09:40 Dose: 10 ml Admin: 07/01/18 17:57 Dose: 10 ml Sodium Chloride (Saline Flush) 10 ml IV Q8 [facility] Last Admin: 07/04/18 06:54 Dose: 10 ml Admin: 07/03/18 22:20 Dose: 10 ml Admin: 07/03/18 15:48 Dose: Admin: 07/03/18 05:16 Dose: 10 ml Admin: 07/02/18 22:55 Dose: 10 ml Admin: 07/02/18 16:01 Dose: Admin: 07/02/18 05:55 Dose: 10 ml Admin: 07/01/18 21:05 Dose: 10 ml Admin: 07/01/18 14:04 Dose: 10 ml Sodium Chloride (Saline Flush) 10 ml IV Q12 [facility] Last Admin: 07/03/18 22:20 Dose: 10 ml Admin: 07/03/18 12:10 Dose: 10 ml Admin: 07/02/18 22:55 Dose: 10 ml Admin: 07/02/18 09:30 Dose: 10 ml Admin: 07/01/18 21:05 Dose: Not Given Non-Admin Reason: Duplicate Assessment and Plan - Narrative A/P Narrative: Assessment: 1. Necrotic skin and soft tissue infection of the left forefoot with involvement of underlying bone: -Postoperative day 4 after resection of first and second toes, and POD 1 after Lt TMA Wound cultures growing group B strep and Prevotella spp 2. No sepsis 3. Uncontrolled diabetes with peripheral neuropathy: A1C ~13 4. Possible latex tape allergy in left arm Recommendations: Continue IV Zosyn 3.375 g every 6 hours, counting as day 1 of the therapy. - Continue Wound vac with planning for outpatient wound care follow up Will select IV ceftriaxone 2 g every 24 and oral metronidazole 500 mg every 8 hours as choice of outpatient therapy. Patient was counseled about side effect of antibiotics including diarrhea . She plans to do IV antibiotics at the [facility] -Consider local application of mupirocin cream/bacitracin ointment at the site of latex tape allergy to prevent infection -Will leave final recommendations near discharge Romario Domingo MD Infectious disease
--- NOTE | 2018-07-04 08:15 | Operative Note ---
DATE OF OPERATION: 07/03/2018 PREOPERATIVE DIAGNOSIS: Ulceration and abscess, left foot. POSTOPERATIVE DIAGNOSIS: Ulceration and abscess, left foot. OPERATION: 1. Left transmetatarsal amputation. 2. Application of a wound VAC dressing. SURGEON: Romero Rodrigues M.D. SALAD CHEF: Clive Chu DPM. ANESTHESIA: General done by Alyssa Donato M.D. SUMMARY OF PROCEDURE: General anesthesia was attained. The left foot and ankle were prepped and draped. An ankle level Esmarch tourniquet was put up. A fishmouth incision was made proximal to the area of ulceration which was over the first and second metatarsals. The first and second toes had been amputated 5 or 6 days ago. The incision was taken down to bone. The flaps were beveled. The bone was removed about 1 to 2 cm distal to the tarsometatarsal joints throughout using a saw. The bone cut was then pulled distally and the plantar flap was beveled as well. The flexor and extensor tendons were resected above the level of the skin incision. The tourniquet was let down. There was arterial bleeding which was stopped by tying off the dorsalis pedis artery and otherwise using a Bovie. We also used 1 gram of tranexamic acid topically. The wound was irrigated thoroughly with 3 liters of jet lavage and 1 liter of the Irrisept. The tourniquet was once again let down. The wound was closed in layers using buried 2-0 Monocryl on the subcutaneous tissue and mattresses of 3-0 nylon on the skin. A wound VAC dressing was then applied followed by an Braxton bandage and a postop shoe. The sponge and needle count was correct. The patient tolerated the procedure well and was taken to the recovery room in stable condition. The preoperative ulceration was about 5 cm in length and at least 1 cm in depth and 1 cm wide. [email or web address] Job ID: [id number] Doc ID: [id number] Romero Rodrigues MD
[2018-07-04] MEDS: INSULIN GLARGINE, HUMAN 1 UNIT/0.01 ML SQ SCH ×2 (09:27→20:22)
[2018-07-04] MEDS: HEPARIN 5,000 UNIT/ML VIAL SQ SCH ×2 (09:28→20:19)
[2018-07-04] MEDS: ESCITALOPRAM 20 MG TABLET PO SCH (09:29)
[2018-07-04] MEDS: buPROPion 150 MG TAB.XL.24H PO SCH (09:29)
[2018-07-04] MEDS: ONDANSETRON 4 MG/2 ML VIAL IV PRN (11:47)
--- NOTE | 2018-07-04 12:50 | Internal Med Progress Note ---
Medical - PN: Subj Patient information: Note initiated : 07/04/18 at 12:44 pm Service Date, if different from initiated Date: [] Patient: Francesca Leon a 52 y/o F admitted on 06/27/18 for Left Foot Ulcer. Chief Complaint: f/u osteo/foot infection Interval history: Ms. Leon is a 52 year old F with h/o Dm, presents to the ER today with complaints of left foot pain. The patient notes approximately 6 weeks ago she stepped on attack, resulting in a puncture wound. Initially they were trying to clean the wound by local wound care, the patient's wound progressed and the patient was followed by Dr. Bender, The patient according to the seating upholsterer was walking with a tack in her shoe. The patient wound progressively got worse, with increasing redness swelling, increased smell. patient underwent debridement at his office, and was placed on doxycycline and ciprofloxacin, the patient notes that this did not help much and the swelling, infection continued to persist, the patient was started on clindamycin on 06/15/18. The patient on her follow up noted no significant improvement with worsening redness, discharge, patient was therefore asked to come to the hospital for IV antibiotics. The patient is accompanied by her , notes has DM, uncontrolled last a1c was 14. According to the notes of Dr Bender, pt has h/o MRSA Patient in the ER afebrile, HR 77, BP 111/68. 91% on RA Labs show WBC count of 16,800, hemoglobin 12.8 platelets 287. basic neg, glucose elevated to 282. ESR 98 CRP 18.9 and lactic acid is 1.4. Patient clinically appears quite stable is being admitted to the medical floor for further management. Dr Chu has been consulted who will be there to evaluate the patient. I spone with him and he will be here after clinic hours. The CT scan of the foot reviewed, there is gas noted in the tissues however the patient has an open ulcer and has had instrumentation done recently. She does have significant cellulitis positive drainage at this point. And is going to be evaluated by the surgeon soon. I do not believe that this is necrotizing fasciitis at this time given her hemodynamic stability and recent instrumentation which could easily explain the gas. She does have necrotizing soft tissue infection. 06/28 Patient seen and examined no acute overnight events. Wound was in dressing today. She has no acute complaints or concerns. Glucose level high yesterday better today. MRI done today shows severe osteomyelitis cellulitis. Likely plan for surgery tomorrow. Ongoing vancomycin and Zosyn appreciate podiatry and infectious disease input 06/29 Patient seen examined, post op drowsy, a bit hypotensive, bolus x 1 given with good repsonse, another 1L ordered. Patient has post op pain, at the site of surgery, Patient glucose level low normal, being monitied, lantus on hold for now. 06/30 Patient seen and examined no acute overnight events. She was hypotensive yesterday responded well to fluid boluses. This morning again was reported that she was hypotensive. Blood gas was drawn mildly hypoxic and has some CO2 retention. PH of 7.30 patient has a history of sleep apnea has not been wearing a CPAP machine at home. Clinically does not appear to be septic but given that she has been hypotensive postop remove the patient to PCU status for closer monitoring Gomez was placed. Once the patient was moved to the PCU her blood pressure was noted to be normal patient has no chest pain no dizziness no palpitations no cough. 07/01 Patient seen and examined, no acute overnight events. Monitor on PCU status patient's blood pressure has remained stable with no evidence of sepsis or septic shock. Will move the patient back to medical floor. Creatinine 2.1 worsened today, likely secondary to drop in blood pressure as well as antibiotic use. Good urine output patient tolerating p.o. diet well monitor for now consider nephrology consult if it worsens further. Plan of care reviewed with Dr. Chu, I will try to see if wound care can arrange for hyperbaric treatment for this patient. 07/02 Patient seen examiend, no acute overnight issues on the medical floor. Plan to initiate Hyperbaric treatment for the patient USG for left lower extremity vascular evaluation. Dr Carbajal will be here on Monday, will initiate HBOT based on indications of Diabetic foot ulcer, Wagners Grade 3 with necrotizing infection. Patient was explained the risks and benefits of this procedure and she agrees for same She denies any emphysema, no shortness of breath ,no h/o CHF, no hearing issues , no sinus issues. Patient educated the procedure and need to be aware to clear her sinuses/ Valsalva maneuver during the dive. Start off with HBOT 2.5ATA for 90 mins with Air breaks per protocol. total for 10 treatments for now. first treatment today. I will be going off service today, Dr Abe Bell will be monitoring the HBOT treatments in my absence and Dr Carbajal will decide need for further treatments. I am allowing the glucose levels to be elevated as I expect these to drop during HBOT treatment. Ativan prn for anxiety labs show improving creatinine, 1.9 today 07/03 Patient seen and examined. Discussed with Dr. Chu on the phone this morning. During his exam of the wound yesterday evening, noted worsening wound margins and wound bed. Concern for need for amputation. Dr. Rodrigues has been consult it for further evaluation of the wound and consideration of amputation as well as what level. Patient tolerated HBOT better today after pre-session lorazepam. She is concerned about the possibility of having to have an amputation. 07/04 Now postop day #1 following left TMA after failed partial amputations of the first and second toes. Patient feels fatigued today. ID recommendations have been reviewed. Unclear if HBOT still indicated, attempting to clarify, though usual wound care physician is not in the office this week. Initially ordered as attempt to salvage the initial amputation, which is now failed. Discussed with the patient the need for good glucose control to promote healing , as well as to prevent further complications in the future. Pertinent ROS: Notable for fatigue. Some left foot pain. No dyspnea, no abdominal pain. - Constitutional Vitals: Vital Signs Temp Pulse Resp BP Pulse Ox 98.2 F 64 16 126/83 95 07/04/18 11:16 07/04/18 03:30 07/04/18 11:16 07/04/18 11:16 07/04/18 11:16 Period Temp Pulse Resp BP Sys/Carrillo Pulse Ox Last 24 Hr 96.2 F-98.2 F 64-97 12-16 102-167/67-103 90-99 Intake and Output 07/03/18 07/04/18 07/04/18 21:59 05:59 13:59 Intake Total 150 / 150 1225 / 1225 160 / 160 Output Total 650 / 650 500 / 500 150 / 150 Balance -500 / -500 725 / 725 Weight 331 lb Intake & Output: Intake & Output 07/03/18 07/04/18 07/04/18 21:59 05:59 13:59 Intake Total 150 / 150 1225 / 1225 160 / 160 Output Total 650 / 650 500 / 500 150 / 150 Balance -500 / -500 725 / 725 Weight 331 lb Intake: IV 150 / 150 1100 / 1100 50 / 50 Zosyn 3.375 gm In Dextrose 5% 50 / 50 100 / 100 50 / 50 in Water 50 ml @ 100 mls/hr IV Q6H PENDING SALE TO [facility] Rx#:[id number] Oral 125 / 125 110 / 110 Output: Void Amount 500 / 500 150 / 150 Urine/Stool Mix 650 / 650 Other: Meal Breakfast Percent of Meal Consumed 50% Feeding Ability Independent Urine Color Bright Yellow Stool Size Moderate Stool Color Brown Stool Consistency Loose # Voids 1 1 Exam: General: Significant bed in no acute distress Chest: Clear, good air movement Cardiovascular: Regular Abdomen: Obese, soft Musculoskeletal: Left foot wrapped with wound VAC in place Neuro: Alert, oriented 3. Medical - PN: Obj Da - Labs CBC & Chem 7: 07/04/18 04:30 07/04/18 04:30 Labs: Abnormal Lab Results 07/04/18 07/04/18 07/03/18 04:30 04:30 16:29 WBC 13.1 H RBC 3.29 L Hgb 9.1 L Hct 27.6 L RDW 14.7 H Gran % Lymph % (Auto) Gran # 9.9 H Lymph # (Auto) ESR POC PT APTT 41 H Potassium Carbon Dioxide 31 H Anion Gap Creatinine 1.8 H Glucose Calcium Phosphorus 5.4 H Alkaline Phosphatase Lactate Dehydrogenase 270 H C-Reactive Protein Albumin 2.8 L Globulin 4.2 H Albumin/Globulin Ratio 0.7 L Triglycerides 175 H 07/03/18 07/03/18 07/03/18 16:17 05:28 05:28 WBC RBC 3.39 L Hgb 9.4 L Hct 28.2 L RDW Gran % 78.7 H Lymph % (Auto) 12.9 L Gran # 8.4 H Lymph # (Auto) 1.4 L ESR POC PT 11.2 L APTT Potassium Carbon Dioxide 31 H Anion Gap 7.0 L Creatinine 1.8 H Glucose 161 H Calcium Phosphorus Alkaline Phosphatase 122 H Lactate Dehydrogenase C-Reactive Protein Albumin 2.7 L Globulin 4.2 H Albumin/Globulin Ratio 0.6 L Triglycerides 11/01/1207/02/18 07/02/18 21:01 21:01 09:46 WBC RBC Hgb Hct RDW Gran % Lymph % (Auto) Gran # Lymph # (Auto) ESR 117 H POC PT APTT Potassium Carbon Dioxide Anion Gap Creatinine 1.9 H Glucose 147 H Calcium Phosphorus Alkaline Phosphatase Lactate Dehydrogenase C-Reactive Protein 3.9 H Albumin Globulin Albumin/Globulin Ratio Triglycerides 07/02/18 07/02/18 04:15 04:15 WBC 11.4 H RBC 3.44 L Hgb 9.6 L Hct 29.1 L RDW Gran % 80.6 H Lymph % (Auto) 12.1 L Gran # 9.2 H Lymph # (Auto) 1.4 L ESR POC PT APTT Potassium 5.5 H Carbon Dioxide Anion Gap Creatinine 1.9 H Glucose 162 H Calcium 8.2 L Phosphorus Alkaline Phosphatase 138 H Lactate Dehydrogenase C-Reactive Protein Albumin 2.5 L Globulin 4.4 H Albumin/Globulin Ratio 0.6 L Triglycerides Microbiology 07/03/18 19:25 Anaerobic Culture - Preliminary Foot - Left 06/29/18 14:39 Fungal Smear - Final Foot - Left Fungal Culture - Preliminary Meds: Medications Acetaminophen (Tylenol) 650 mg PO Q6HP PRN PRN Reason: PAIN/FEVER > 101 Hydrocodone Bitart/Acetaminophen ([place] 10/325mg) 1 - 2 tab PO Q4-6HP PRN PRN Reason: Pain Last Admin: 07/04/18 04:57 Dose: 2 tab Albuterol Sulfate (Ventolin) 2.5 mg NEB Q2HP PRN PRN Reason: Shortness Of Breath Bupropion HCl (Wellbutrin Xl) 150 mg PO DAILY PENDING SALE TO [facility] Last Admin: 07/04/18 09:29 Dose: 150 mg Dextrose (Dextrose 50%) 0 ml IV UD PRN PRN Reason: Hypoglycemia Diagnostic Test (Pha) (Accu-Chek) 1 each FS ACHS PENDING SALE TO [facility] Last Admin: 07/04/18 11:56 Dose: 1 each Escitalopram Oxalate (Lexapro) 20 mg PO DAILY PENDING SALE TO [facility] Last Admin: 07/04/18 09:29 Dose: 20 mg Glucose (Insta-Glucose) 15 gm PO PRN PRN PRN Reason: Hypoglycemia Heparin Sodium (Porcine) (Heparin) 5,000 unit SQ Q12 PENDING SALE TO [facility] Last Admin: 07/04/18 09:28 Dose: 5,000 unit Heparin Sodium (Porcine) (Heparin Flush) 2 ml IV Q12 PENDING SALE TO [facility] Last Admin: 07/04/18 09:30 Dose: 2 ml Hydrogen Peroxide/Benzyl Alcohol (Hydrogen Peroxide) 474 ml TOPICAL UD PRN PRN Reason: DRESSING CHANGES Piperacillin Sod/Tazobactam (Sod 3.375 gm/ Dextrose) 50 mls @ 100 mls/hr IV Q6H PENDING SALE TO [facility] Last Infusion: 07/04/18 12:37 Dose: Infused Insulin Glargine (Lantus) 20 unit SQ BID PENDING SALE TO [facility] Last Admin: 07/04/18 09:27 Dose: 20 unit Insulin Human Lispro (Humalog) 0 unit SQ ACHS PENDING SALE TO [facility]; Protocol Last Admin: 07/04/18 12:24 Dose: 2 unit Lorazepam (Ativan) 0.5 - 1 mg PO BIDP PRN PRN Reason: ANXIETY/SEDATION Last Admin: 07/04/18 07:07 Dose: 1 mg Lorazepam (Ativan) 1 mg IV UD PRN PRN Reason: ANXIETY/SEDATION Metoclopramide HCl (Reglan) 5 mg IV Q8HP PRN PRN Reason: Nausea Last Admin: 07/03/18 15:42 Dose: 5 mg Morphine Sulfate (Morphine) 2 mg IV Q4HP PRN PRN Reason: PAIN LEVEL > 6 Last Admin: 07/01/18 17:42 Dose: 2 mg Morphine Sulfate (Morphine) 4 mg IV Q2HP PRN PRN Reason: PAIN LEVEL > 6 Last Admin: 07/04/18 09:24 Dose: 4 mg Naloxone HCl (Narcan) 0.1 mg IV Q2MIN PRN PRN Reason: Opiate Reversal Ondansetron HCl (Zofran) 4 mg IV Q6HP PRN PRN Reason: Nausea And Vomiting Last Admin: 07/04/18 11:47 Dose: 4 mg Oxycodone HCl (Roxicodone) 5 mg PO Q4HP PRN PRN Reason: PAIN LEVEL 3-6 Last Admin: 07/04/18 07:25 Dose: 5 mg Pantoprazole Sodium (Protonix) 40 mg IV QAMAC PENDING SALE TO [facility] Last Admin: 07/04/18 07:08 Dose: 40 mg Senna (Senokot) 2 tab PO HS PENDING SALE TO [facility] Last Admin: 07/03/18 22:03 Dose: Not Given Sodium Chloride (Saline Flush) 10 ml IV UD PRN PRN Reason: FLUSH Last Admin: 07/03/18 15:43 Dose: 10 ml Sodium Chloride (Saline Flush) 10 ml IV Q8 [facility] Last Admin: 07/04/18 06:54 Dose: 10 ml Sodium Chloride (Saline Flush) 10 ml IV Q12 PENDING SALE TO [facility] Last Admin: 07/04/18 09:49 Dose: 10 ml Medical - PN: A/P - Narrative A/P Narrative: 52 y/o female admitted with left foot wound in the setting of uncontrolled T2 Dm. -Postop day #1, left transmetatarsal amputation for diabetic Rucker grade 3, necrotizing soft tissue infection with acute osteomyelitis- s/p initial debridement and amputation, but with soft tissue breakdown noted evening of 07/02 , TMA done 07/03. On zosyn per ID, PICC line placed, wound care following. -For initial soft tissue infection, started on Hyperbaric treatment, 2.5ATA 90 mins, total of 10 planned (first on afternoon 07/02) with initial goal of treatment is limb salvation, ascertain demarcation of and living tissue in a necrotizing anaerobic diabetic infection. -However, worsening exam 07/02 evening, was seen by ortho (Dr. Rodrigues), and now s/ p TMA. -Patient was being treated by Dr Bender (seating upholsterer) as outpatient prior to admission. Infection ongoing for nearly 6 weeks, failed outpatient debridement and antibiotics. Plan: Continue antibiotics, transition ceftriaxone and oral metronidazole at discharge, wound VAC, clarify any need for HBOT Hypotension- Resolved, monitor now, DM uncontrolled - a1c high, 13.5, glucose levels ok post op, glucose levels trending up again, started Lantus with 20 bid, allow elevated glucose, given HBOT can cause hypoglycemia. Reinforced with patient need for better glucose control to promote healing and future complications. Acute Kidney injury- ATN due to low bp, vs medication related, Making good urine , Creat now trending down, stable at 1.8. HTN- hold lisinopril given renal failure, bp stable. VIVEK not using CPAP as dog chewed the mask, use CPAP while here. Depression/Anxiety- Resume citalopram/ buspirone Medical - PN: Qual - VTE Deep Vein Thrombosis/Pulmonary Embolism Present on Admission: No
[2018-07-04] MEDS: METOCLOPRAMIDE 10 MG/2 ML VIAL IV PRN (14:43)
[2018-07-04] MEDS ORDERED: ALTEPLASE 2 MG VIAL IV ONE (15:56)
[2018-07-04] MEDS: SENNOSIDES 1 TABLET PO SCH (20:20)
[2018-07-05] MEDS: HYDROcodone/APAP 10/325MG TABLET PO PRN ×2 (04:31→17:58)
[2018-07-05] MEDS: PIPERACILLIN SODIUM/TAZOBACTAM 3.375 GM in DEXTROSE 5% IN WATER 50 ML IV SCH (05:32)
[2018-07-05] MEDS: 0.9 % SODIUM CHLORIDE 10 ML SYRINGE IV SCH ×5 (05:35→21:33)
--- NOTE | 2018-07-05 06:28 | Orthopedic Progress Note ---
Subjective Patient information: Note initiated : 07/05/18 at 6:26 am Service Date, if different from initiated Date: [] Patient: Francesca Leon 52 y/o F admitted on 06/27/18 for Left Foot Ulcer. Chief Complaint: [] Principal diagnosis: osteomyelitis with necrotizing infection of left foot Objective Vital signs: Vital Signs Temp Pulse Resp BP Pulse Ox 07/05/18 04:00 98.0 F 72 12 129/77 90 07/05/18 00:00 97.6 F 76 12 139/71 90 07/04/18 19:17 97.8 F 85 12 116/77 90 07/04/18 15:50 96.7 F L 16 109/63 97 07/04/18 11:16 98.2 F 16 126/83 95 07/04/18 08:00 95 07/04/18 07:00 96.2 F L 16 127/84 98 Intake and Output 07/04/18 07/05/18 07/05/18 21:59 05:59 13:59 Intake Total 650 / 650 590 / 590 Output Total 850 / 850 950 / 950 Balance -200 / -200 -360 / -360 Intake: IV 50 / 50 50 / 50 Zosyn 3.375 gm In Dextrose 5% 50 / 50 50 / 50 in Water 50 ml @ 100 mls/hr IV Q6H [facility] Rx#:[id number] Oral 600 / 600 540 / 540 Output: Void Amount 850 / 850 750 / 750 Emesis 200 / 200 Other: Meal Dinner Percent of Meal Consumed 100% Feeding Ability Independent Urine Appearance Clear Clear Urine Color Bright Yellow Bright Yellow Urine Odor Normal Normal Weight 329 lb Intake & Output: Intake & Output 07/04/18 07/05/18 07/05/18 21:59 05:59 13:59 Intake Total 650 / 650 590 / 590 Output Total 850 / 850 950 / 950 Balance -200 / -200 -360 / -360 Weight 329 lb Intake: IV 50 / 50 50 / 50 Zosyn 3.375 gm In Dextrose 5% 50 / 50 50 / 50 in Water 50 ml @ 100 mls/hr IV Q6H [facility] Rx#:[id number] Oral 600 / 600 540 / 540 Output: Void Amount 850 / 850 750 / 750 Emesis 200 / 200 Other: Meal Dinner Percent of Meal Consumed 100% Feeding Ability Independent Urine Appearance Clear Clear Urine Color Bright Yellow Bright Yellow Urine Odor Normal Normal Dressing: Yes clean, Yes dry, Yes intact Weight bearing status: partial - Labs CBC & BMP: 07/04/18 04:30 07/04/18 04:30 Labs: Orthopedic Labs 07/03/18 07/03/18 16:29 16:17 POC PT 11.2 L POC INR 0.9 APTT 41 H 07/04/18 07/03/18 07/02/18 04:30 05:28 04:15 Hgb 9.1 L 9.4 L 9.6 L Hct 27.6 L 28.2 L 29.1 L 07/01/18 06/30/18 06/29/18 04:00 04:30 04:30 Hgb 9.3 L 9.7 L 11.1 L Hct 28.6 L 29.1 L 34.4 L 06/28/18 06/27/18 04:28 14:37 Hgb 11.4 L 12.8 Hct 35.0 L 36.8 Assessment and Plan (1) Osteomyelitis of foot, left, acute Status: Acute Comment: pod#1 left transmetatarsal amputation doing well, pain controlled, Vac with good seal and minimal sanguineous drainage4-5mL. Ok to heel wb to bathroom and back to bed. Abx as per /ID. Long discussion of importance of better BS control and short and senior living consequences of not. discharge evaluation for later this week - Narrative A/P Narrative: stable sorgically. Recommend discharge on iv antibiotics, f/u with my PA in 7- 10 days
[2018-07-05] MEDS: PANTOPRAZOLE 40 MG VIAL IV SCH (07:29)
[2018-07-05 08:48] LABS: Basophils # (Auto) 0 K/mcL (0.0-0.3); Basophils % (Auto) 0.2 % (0.0-2.0); Eosinophils # (Auto) 0.4 K/mcL (0.0-0.7); Eosinophils % (Auto) 3.2 % (0.0-7.0); Lymphocytes # (Auto) 1.2 K/mcL (1.5-4.8); Lymphocytes % (Auto) 8.8 % (15.5-49.0); Mean Corpuscular Hemoglobin 27.7 pg (26.0-34.0); Monocytes # (Auto) 0.5 K/mcL (0.1-0.9); Monocytes % (Auto) 3.8 % (1.0-12.0); Platelet Count 273 K/mcL (140-440); Red Cell Distribution Width 14.7 % (11.5-14.5)
[2018-07-05 09:05] LABS: ALT/SGPT 15 U/l (0-40); Albumin 2.8 gm/dL (3.2-5.2); Albumin/Globulin Ratio 0.7 (1.0-2.3); Alkaline Phosphatase 94 U/L (39-117); Blood Urea Nitrogen 17 mg/dl (6-20)
[2018-07-05] MEDS: INSULIN LISPRO 1 UNIT/0.01 ML UNIT SQ SCH ×4 (09:40→21:09)
[2018-07-05] MEDS: INSULIN GLARGINE, HUMAN 1 UNIT/0.01 ML SQ SCH ×2 (09:41→21:31)
[2018-07-05] MEDS: HEPARIN 5,000 UNIT/ML VIAL SQ SCH ×2 (09:42→21:31)
[2018-07-05] MEDS: ESCITALOPRAM 20 MG TABLET PO SCH (09:42)
[2018-07-05] MEDS: buPROPion 150 MG TAB.XL.24H PO SCH (09:42)
--- NOTE | 2018-07-05 11:28 | Internal Med Progress Note ---
Medical - PN: Subj Patient information: Note initiated : 07/05/18 at 11:25 am Service Date, if different from initiated Date: [] Patient: Francesca Leon a 52 y/o F admitted on 06/27/18 for Left Foot Ulcer. Chief Complaint: f/u left foot osteo/soft tissue infection Interval history: Ms. Leon is a 52 year old F with h/o Dm, presents to the ER today with complaints of left foot pain. The patient notes approximately 6 weeks ago she stepped on attack, resulting in a puncture wound. Initially they were trying to clean the wound by local wound care, the patient's wound progressed and the patient was followed by Dr. Bender, The patient according to the electrical systems drafter was walking with a tack in her shoe. The patient wound progressively got worse, with increasing redness swelling, increased smell. patient underwent debridement at his office, and was placed on doxycycline and ciprofloxacin, the patient notes that this did not help much and the swelling, infection continued to persist, the patient was started on clindamycin on 06/15/18. The patient on her follow up noted no significant improvement with worsening redness, discharge, patient was therefore asked to come to the hospital for IV antibiotics. The patient is accompanied by her , notes has DM, uncontrolled last a1c was 14. According to the notes of Dr Bender, pt has h/o MRSA Patient in the ER afebrile, HR 77, BP 111/68. 91% on RA Labs show WBC count of 16,800, hemoglobin 12.8 platelets 287. basic neg, glucose elevated to 282. ESR 98 CRP 18.9 and lactic acid is 1.4. Patient clinically appears quite stable is being admitted to the medical floor for further management. Dr Chu has been consulted who will be there to evaluate the patient. I spone with him and he will be here after clinic hours. The CT scan of the foot reviewed, there is gas noted in the tissues however the patient has an open ulcer and has had instrumentation done recently. She does have significant cellulitis positive drainage at this point. And is going to be evaluated by the surgeon soon. I do not believe that this is necrotizing fasciitis at this time given her hemodynamic stability and recent instrumentation which could easily explain the gas. She does have necrotizing soft tissue infection. 06/28 Patient seen and examined no acute overnight events. Wound was in dressing today. She has no acute complaints or concerns. Glucose level high yesterday better today. MRI done today shows severe osteomyelitis cellulitis. Likely plan for surgery tomorrow. Ongoing vancomycin and Zosyn appreciate podiatry and infectious disease input 06/29 Patient seen examined, post op drowsy, a bit hypotensive, bolus x 1 given with good repsonse, another 1L ordered. Patient has post op pain, at the site of surgery, Patient glucose level low normal, being monitied, lantus on hold for now. 06/30 Patient seen and examined no acute overnight events. She was hypotensive yesterday responded well to fluid boluses. This morning again was reported that she was hypotensive. Blood gas was drawn mildly hypoxic and has some CO2 retention. PH of 7.30 patient has a history of sleep apnea has not been wearing a CPAP machine at home. Clinically does not appear to be septic but given that she has been hypotensive postop remove the patient to PCU status for closer monitoring Gomez was placed. Once the patient was moved to the PCU her blood pressure was noted to be normal patient has no chest pain no dizziness no palpitations no cough. 07/01 Patient seen and examined, no acute overnight events. Monitor on PCU status patient's blood pressure has remained stable with no evidence of sepsis or septic shock. Will move the patient back to medical floor. Creatinine 2.1 worsened today, likely secondary to drop in blood pressure as well as antibiotic use. Good urine output patient tolerating p.o. diet well monitor for now consider nephrology consult if it worsens further. Plan of care reviewed with Dr. Chu, I will try to see if wound care can arrange for hyperbaric treatment for this patient. 07/02 Patient seen examiend, no acute overnight issues on the medical floor. Plan to initiate Hyperbaric treatment for the patient USG for left lower extremity vascular evaluation. Dr Carabjal will be here on Monday, will initiate HBOT based on indications of Diabetic foot ulcer, Wagners Grade 3 with necrotizing infection. Patient was explained the risks and benefits of this procedure and she agrees for same She denies any emphysema, no shortness of breath ,no h/o CHF, no hearing issues , no sinus issues. Patient educated the procedure and need to be aware to clear her sinuses/ Valsalva maneuver during the dive. Start off with HBOT 2.5ATA for 90 mins with Air breaks per protocol. total for 10 treatments for now. first treatment today. I will be going off service today, Dr Abe Bell will be monitoring the HBOT treatments in my absence and Dr Carbjaal will decide need for further treatments. I am allowing the glucose levels to be elevated as I expect these to drop during HBOT treatment. Ativan prn for anxiety labs show improving creatinine, 1.9 today 07/03 Patient seen and examined. Discussed with Dr. Chu on the phone this morning. During his exam of the wound yesterday evening, noted worsening wound margins and wound bed. Concern for need for amputation. Dr. Rodrigues has been consult it for further evaluation of the wound and consideration of amputation as well as what level. Patient tolerated HBOT better today after pre-session lorazepam. She is concerned about the possibility of having to have an amputation. 07/04 Now postop day #1 following left TMA after failed partial amputations of the first and second toes. Patient feels fatigued today. ID recommendations have been reviewed. Unclear if HBOT still indicated, attempting to clarify, though usual wound care physician is not in the office this week. Initially ordered as attempt to salvage the initial amputation, which is now failed. Discussed with the patient the need for good glucose control to promote healing , as well as to prevent further complications in the future. 07/05 Patient notes a new rash that's developed. It's nonpruritic. Isolated red nodules on the limbs, also on the back. No new medications. Also having intermittent postsurgical left foot pain. No dyspnea, no fever, no abdominal pain, no nausea. - Constitutional Vitals: Vital Signs Temp Pulse Resp BP Pulse Ox 97.0 F 73 18 125/80 97 07/05/18 07:18 07/05/18 07:18 07/05/18 07:18 07/05/18 07:18 07/05/18 07:18 Period Temp Pulse Resp BP Sys/Carrillo Pulse Ox Last 24 Hr 96.7 F-98.0 F 72-85 12-18 109-139/63-80 90-97 Intake and Output 07/04/18 07/05/18 07/05/18 21:59 05:59 13:59 Intake Total 650 / 650 590 / 590 50 / 50 Output Total 850 / 850 950 / 950 Balance -200 / -200 -360 / -360 50 / 50 Weight 329 lb Intake & Output: Intake & Output 07/04/18 07/05/18 07/05/18 21:59 05:59 13:59 Intake Total 650 / 650 590 / 590 50 / 50 Output Total 850 / 850 950 / 950 Balance -200 / -200 -360 / -360 50 / 50 Weight 329 lb Intake: IV 50 / 50 50 / 50 50 / 50 Zosyn 3.375 gm In Dextrose 5% 50 / 50 50 / 50 50 / 50 in Water 50 ml @ 100 mls/hr IV Q6H [facility] Rx#:[id number] Oral 600 / 600 540 / 540 Output: Void Amount 850 / 850 750 / 750 Emesis 200 / 200 Other: Meal Dinner Percent of Meal Consumed 100% Feeding Ability Independent Urine Appearance Clear Clear Urine Color Bright Yellow Bright Yellow Urine Odor Normal Normal Exam: General: No acute distress Chest: Clear with good aeration Cardiovascular: Regular Abdomen: Obese, soft, nontender Skin: Scattered 35 millimeter erythematous nodules on the limbs, smaller nodules across the back. Neuro: Alert, oriented, nonfocal Medical - PN: Obj Da - Labs CBC & Chem 7: 07/05/18 07:50 07/05/18 07:50 Labs: Abnormal Lab Results 07/05/18 07/05/18 07/04/18 07:50 07:50 04:30 WBC 13.4 H RBC 3.20 L Hgb 8.9 L Hct 26.9 L RDW 14.7 H Gran % 84.0 H Lymph % (Auto) 8.8 L Gran # 11.2 H Lymph # (Auto) 1.2 L ESR POC PT APTT Carbon Dioxide 33 H 31 H Anion Gap Creatinine 1.7 H 1.8 H Glucose 127 H Calcium 8.3 L Phosphorus 5.4 H Alkaline Phosphatase Lactate Dehydrogenase 270 H C-Reactive Protein Albumin 2.8 L 2.8 L Globulin 4.2 H 4.2 H Albumin/Globulin Ratio 0.7 L 0.7 L Triglycerides 175 H 07/04/18 07/03/18 07/03/18 04:30 16:29 16:17 WBC 13.1 H RBC 3.29 L Hgb 9.1 L Hct 27.6 L RDW 14.7 H Gran % Lymph % (Auto) Gran # 9.9 H Lymph # (Auto) ESR POC PT 11.2 L APTT 41 H Carbon Dioxide Anion Gap Creatinine Glucose Calcium Phosphorus Alkaline Phosphatase Lactate Dehydrogenase C-Reactive Protein Albumin Globulin Albumin/Globulin Ratio Triglycerides 07/03/18 07/03/18 07/02/18 05:28 05:28 21:01 WBC RBC 3.39 L Hgb 9.4 L Hct 28.2 L RDW Gran % 78.7 H Lymph % (Auto) 12.9 L Gran # 8.4 H Lymph # (Auto) 1.4 L ESR POC PT APTT Carbon Dioxide 31 H Anion Gap 7.0 L Creatinine 1.8 H Glucose 161 H Calcium Phosphorus Alkaline Phosphatase 122 H Lactate Dehydrogenase C-Reactive Protein 3.9 H Albumin 2.7 L Globulin 4.2 H Albumin/Globulin Ratio 0.6 L Triglycerides 07/02/18 21:01 WBC RBC Hgb Hct RDW Gran % Lymph % (Auto) Gran # Lymph # (Auto) ESR 117 H POC PT APTT Carbon Dioxide Anion Gap Creatinine Glucose Calcium Phosphorus Alkaline Phosphatase Lactate Dehydrogenase C-Reactive Protein Albumin Globulin Albumin/Globulin Ratio Triglycerides [facility] 07/03/18 19:25 Gram Stain - Final Foot - Left Anaerobic Culture - Preliminary Gram Stain - Final Wound Culture - Preliminary Meds: Medications Acetaminophen (Tylenol) 650 mg PO Q6HP PRN PRN Reason: PAIN/FEVER > 101 Hydrocodone Bitart/Acetaminophen (Bentley 10/325mg) 1 - 2 tab PO Q4-6HP PRN PRN Reason: Pain Last Admin: 07/05/18 04:31 Dose: 2 tab Albuterol Sulfate (Ventolin) 2.5 mg NEB Q2HP PRN PRN Reason: Shortness Of Breath Bupropion HCl (Wellbutrin Xl) 150 mg PO DAILY [facility] Last Admin: 07/05/18 09:42 Dose: 150 mg Dextrose (Dextrose 50%) 0 ml IV UD PRN PRN Reason: Hypoglycemia Diagnostic Test (Pha) (Accu-Chek) 1 each FS ACHS [facility] Last Admin: 07/05/18 07:34 Dose: 1 each Escitalopram Oxalate (Lexapro) 20 mg PO DAILY [facility] Last Admin: 07/05/18 09:42 Dose: 20 mg Glucose (Insta-Glucose) 15 gm PO PRN PRN PRN Reason: Hypoglycemia Heparin Sodium (Porcine) (Heparin) 5,000 unit SQ Q12 [facility] Last Admin: 07/05/18 09:42 Dose: 5,000 unit Heparin Sodium (Porcine) (Heparin Flush) 2 ml IV Q12 [facility] Last Admin: 07/05/18 09:43 Dose: 2 ml Hydrogen Peroxide/Benzyl Alcohol (Hydrogen Peroxide) 474 ml TOPICAL UD PRN PRN Reason: DRESSING CHANGES Ceftriaxone Sodium 2 gm/ (Dextrose) 50 mls @ 100 mls/hr IV Q24H [facility] Insulin Glargine (Lantus) 20 unit SQ BID [facility] Last Admin: 07/05/18 09:41 Dose: 20 unit Insulin Human Lispro (Humalog) 0 unit SQ ACHS [facility]; Protocol Last Admin: 07/05/18 09:40 Dose: Not Given Lorazepam (Ativan) 0.5 - 1 mg PO BIDP PRN PRN Reason: ANXIETY/SEDATION Last Admin: 07/04/18 07:07 Dose: 1 mg Lorazepam (Ativan) 1 mg IV UD PRN PRN Reason: ANXIETY/SEDATION Metoclopramide HCl (Reglan) 5 mg IV Q8HP PRN PRN Reason: Nausea Last Admin: 07/04/18 14:43 Dose: 5 mg Metronidazole (Flagyl) 500 mg PO Q8 [facility] Morphine Sulfate (Morphine) 2 mg IV Q4HP PRN PRN Reason: PAIN LEVEL > 6 Last Admin: 07/01/18 17:42 Dose: 2 mg Morphine Sulfate (Morphine) 4 mg IV Q2HP PRN PRN Reason: PAIN LEVEL > 6 Last Admin: 07/05/18 05:37 Dose: 4 mg Morphine Sulfate (Morphine) 15 - 30 mg PO Q6HP PRN PRN Reason: PAIN LEVEL 3-6 Naloxone HCl (Narcan) 0.1 mg IV Q2MIN PRN PRN Reason: Opiate Reversal Ondansetron HCl (Zofran) 4 mg IV Q6HP PRN PRN Reason: Nausea And Vomiting Last Admin: 07/04/18 11:47 Dose: 4 mg Oxycodone HCl (Roxicodone) 5 mg PO Q4HP PRN PRN Reason: PAIN LEVEL 3-6 Last Admin: 07/04/18 07:25 Dose: 5 mg Pantoprazole Sodium (Protonix) 40 mg IV QAMAC [facility] Last Admin: 07/05/18 07:29 Dose: 40 mg Senna (Senokot) 2 tab PO HS [facility] Last Admin: 07/04/18 20:20 Dose: 2 tab Sodium Chloride (Saline Flush) 10 ml IV UD PRN PRN Reason: FLUSH Last Admin: 07/03/18 15:43 Dose: 10 ml Sodium Chloride (Saline Flush) 10 ml IV Q8 [facility] Last Admin: 07/05/18 05:35 Dose: 10 ml Sodium Chloride (Saline Flush) 10 ml IV Q12 [facility] Last Admin: 07/05/18 09:43 Dose: 10 ml Medical - PN: A/P - Time Spent With Patient Total time spent is greater than 50% in coordination of care (as documented) at patient's floor/unit and/or counseling patient: 25 - 35 minutes - Narrative A/P Narrative: 52 y/o female admitted with left foot wound in the setting of uncontrolled T2 Dm. -Postop day #2, left transmetatarsal amputation for diabetic Rucker grade 3, necrotizing soft tissue infection with acute osteomyelitis- s/p initial debridement and amputation, but with soft tissue breakdown noted evening of 07/02 , TMA done 07/03. On zosyn per ID, PICC line placed, wound care following. -For initial soft tissue infection, started on Hyperbaric treatment, 2.5ATA 90 mins, total of 10 planned (first on afternoon 07/02) with initial goal of treatment is limb salvation, ascertain demarcation of and living tissue in a necrotizing anaerobic diabetic infection. -However, worsening exam 07/02 evening, was seen by ortho (Dr. Rodrigues), and now s/ p TMA, no further indication for HBOT -Patient was being treated by Dr Bender (electrical systems drafter) as outpatient prior to admission. Infection ongoing for nearly 6 weeks, failed outpatient debridement and antibiotics. Plan: 07/05-->changing to ceftriaxone and metronidazole, which will be outpatient regimen; continue wound VAC Rash. Not a classic drug reaction. Unclear etiology. Hypotension- Resolved, monitor for now, antibiotic changes as above. DM uncontrolled - a1c high, 13.5, glucose levels ok post op, glucose levels trending up again, started Lantus with 20 bid, allow elevated glucose, given HBOT can cause hypoglycemia. Reinforced with patient need for better glucose control to promote healing and future complications. Acute Kidney injury- ATN due to low bp, vs medication related, Making good urine , Creat now trending down, stable at 1.8. HTN- lisinopril held given renal failure, bp stable. Plan: 07/05, resume lisinopril. VIVEK not using CPAP as dog chewed the mask, use CPAP while here-->working to get replacement for home. Depression/Anxiety- Resume citalopram/ buspirone Medical - PN: Qual - VTE Deep Vein Thrombosis/Pulmonary Embolism Present on Admission: No
[2018-07-05] MEDS ORDERED: LISINOPRIL 20 MG TABLET PO ONE (11:35)
[2018-07-05] MEDS: morphine 15 MG TABLET PO PRN ×2 (12:36→21:33)
[2018-07-05] MEDS: cefTRIAXone 2 GM in DEXTROSE 5% IN WATER 50 ML IV SCH (12:38)
--- NOTE | 2018-07-05 12:45 | Surgical Pathology Report ---
HISTOLOGY SPECIMEN MICROSCOPIC DIAGNOSIS BONE, LEFT PROXIMAL SECOND METATARSAL, BIOPSY: -- LAMELLAR BONE WITH FOCAL DENSE ACUTE INFLAMMATION AND NECROSIS. (SEE COMMENT) ([id number]) COMMENT: The biopsy has portions of crushed lamellar bone with a small amount of fibroadipose tissue and a separate dense collection of neutrophils with inflammatory debris and necrosis. The findings suggest acute osteomyelitis. However, correlation with culture is recommended. CLINICAL HISTORY Non-healing grade 3 ulcer left foot with exposed bone. GROSS DESCRIPTION Received in formalin labeled left proximal second metatarsal biopsy, are four fragments of woo-umanzor to pink-umanzor bone-like tissue from less than 0.1 cm in greatest dimension up to 0.2 x 0.1 x 0.1 cm. Entirely submitted in one cassette, following decalcification. ([id number]) Electronically Signed by: Eleazar Trammell M.D.
--- NOTE | 2018-07-05 14:25 | Infectious Disease Prog Note ---
Subjective Patient information: Note initiated : 07/05/18 at 2:00 pm Service Date, if different from initiated Date: [] Patient: Francesca Leon 52 y/o F admitted on 06/27/18 for Left Foot Ulcer. Chief Complaint: [] Principal diagnosis: osteomyelitis with necrotizing infection of left foot Interval history: Patient is doing fine overall. She noticed appearance of small red colored nodules all over her body, mainly over arms and legs. She denies any oral lesions or problems swallowing. Denies any fever, chills, nausea, diarrhea. Endorses an episode of vomiting this morning. Also complains of some left foot pain, controlled with current medications Objective Objective Narrative: ao x 3, in nad no thrush, no oral lesions chest cta s1 s2 normal bs ++ nttd Lt foot in dressing with wound vac Skin: multiple discrete papulo-nodular swellings, non blanchable, no drainage, non vesicular - Vital Signs Vital signs: Vital Signs Temp Pulse Resp BP Pulse Ox 07/05/18 11:26 35.8 C L 70 19 152/90 97 07/05/18 07:18 36.1 C 73 18 125/80 97 07/05/18 04:00 36.7 C 72 12 129/77 90 07/05/18 00:00 36.4 C 76 12 139/71 90 07/04/18 19:17 36.6 C 85 12 116/77 90 07/04/18 15:50 35.9 C L 16 109/63 97 Intake and Output 07/05/18 07/05/18 07/05/18 05:59 13:59 21:59 Intake Total 590 / 590 50 / 50 Output Total 950 / 950 20 20 Balance -360 / -360 30 / 30 Intake: IV 50 / 50 50 / 50 Zosyn 3.375 gm In Dextrose 5% 50 / 50 50 / 50 in Water 50 ml @ 100 mls/hr IV Q6H [facility] Rx#:[id number] Oral 540 / 540 Output: Drainage 20 20 Left Foot Woundvac 20 Void Amount 750 / 750 Emesis 200 / 200 Other: Urine Appearance Clear Urine Color Bright Yellow Urine Odor Normal Weight 149.232 kg Patient Weight 07/06/18 05:59 Weight 149.232 kg Intake & Output: Intake & Output 07/05/18 07/05/18 07/05/18 05:59 13:59 21:59 Intake Total 590 / 590 50 / 50 Output Total 950 / 950 Balance -360 / -360 Weight 149.232 kg Intake: IV 50 / 50 50 / 50 Zosyn 3.375 gm In Dextrose 5% 50 / 50 50 / 50 in Water 50 ml @ 100 mls/hr IV Q6H [facility] Rx#:[id number] Oral 540 / 540 Output: Drainage Left Foot Woundvac Void Amount 750 / 750 Emesis 200 / 200 Other: Urine Appearance Clear Urine Color Bright Yellow Urine Odor Normal - Lab 07/05/18 07:50 07/05/18 07:50 Most recent lab results Calcium 8.3 mg/dl (8.6-10.4) L 07/05/18 07:50 Phosphorus 5.4 mg/dL (2.7-4.5) H 07/04/18 04:30 Magnesium 2.2 mg/dL (1.6-2.5) 07/04/18 04:30 Microbiology 06/29/18 14:39 Foot - Left Acid Fast Bacilli Culture & Smear - Preliminary 07/03/18 19:25 Foot - Left Gram Stain - Final 07/03/18 19:25 Foot - Left Anaerobic Culture - Preliminary 07/03/18 19:25 Foot - Left Gram Stain - Final 07/03/18 19:25 Foot - Left Wound Culture - Final 06/29/18 14:39 Foot - Left Fungal Smear - Final 06/29/18 14:39 Foot - Left Fungal Culture - Preliminary 06/29/18 14:40 Foot - Left Gram Stain - Final 06/29/18 14:40 Foot - Left Gram Stain - Final 06/29/18 14:40 Foot - Left Anaerobic Culture - Preliminary Prevotella species 06/29/18 14:40 Foot - Left Gram Stain - Final 06/29/18 14:40 Foot - Left Wound Culture - Final Strep agalactiae - (group b) 06/27/18 13:30 Blood Blood Culture - Final 06/27/18 13:30 Blood Blood Culture - Final 06/27/18 15:40 Foot - Left Gram Stain - Final 06/27/18 15:40 Foot - Left Wound Culture - Final Strep agalactiae - (group b) Medications Active Medications: Acetaminophen (Tylenol) 650 mg PO Q6HP PRN PRN Reason: PAIN/FEVER > 101 Hydrocodone Bitart/Acetaminophen (Williams 10/325mg) 1 - 2 tab PO Q4-6HP PRN PRN Reason: Pain Last Admin: 07/05/18 04:31 Dose: 2 tab Admin: 07/04/18 20:43 Dose: 2 tab Admin: 07/04/18 14:42 Dose: 2 tab Admin: 07/04/18 04:57 Dose: 2 tab Admin: 07/03/18 22:08 Dose: 2 tab Albuterol Sulfate (Ventolin) 2.5 mg NEB Q2HP PRN PRN Reason: Shortness Of Breath Bupropion HCl (Wellbutrin Xl) [address] [facility] Last Admin: 07/05/18 09:42 Dose: 150 mg Admin: 07/04/18 09:29 Dose: 150 mg Admin: 07/03/18 11:40 Dose: 150 mg Admin: 07/02/18 09:31 Dose: 150 mg Dextrose (Dextrose 50%) 0 ml IV UD PRN PRN Reason: Hypoglycemia Diagnostic Test (Pha) (Accu-Chek) [address] [facility] Last Admin: 07/05/18 12:04 Dose: 1 each Admin: 07/05/18 07:34 Dose: 1 each Admin: 07/04/18 20:01 Dose: 1 each Admin: 07/04/18 17:07 Dose: 1 each Admin: 07/04/18 11:56 Dose: 1 each Admin: 07/04/18 07:04 Dose: 1 each Admin: 07/03/18 20:26 Dose: 1 each Admin: 07/03/18 16:00 Dose: 1 each Admin: 07/03/18 11:45 Dose: 1 each Admin: 07/03/18 06:47 Dose: 1 each Admin: 07/02/18 22:53 Dose: 1 each Admin: 07/02/18 16:47 Dose: 1 each Admin: 07/02/18 12:13 Dose: 1 each Admin: 07/02/18 07:10 Dose: 1 each Admin: 07/01/18 21:03 Dose: 1 each Admin: 07/01/18 17:56 Dose: 1 each Admin: 07/01/18 12:16 Dose: 1 each Escitalopram Oxalate (Lexapro) [address] [facility] Last Admin: 07/05/18 09:42 Dose: 20 mg Admin: 07/04/18 09:29 Dose: 20 mg Admin: 07/03/18 11:41 Dose: 20 mg Admin: 07/02/18 09:31 Dose: 20 mg Glucose (Insta-Glucose) 15 gm PO PRN PRN PRN Reason: Hypoglycemia Heparin Sodium (Porcine) (Heparin) 5,[address] [facility] Last Admin: 07/05/18 09:42 Dose: 5,000 unit Admin: 07/04/18 20:19 Dose: 5,000 unit Admin: 07/04/18 09:28 Dose: 5,000 unit Admin: 07/03/18 20:50 Dose: 5,000 unit Admin: 07/03/18 11:41 Dose: 5,000 unit Admin: 07/02/18 22:53 Dose: 5,000 unit Admin: 07/02/18 09:31 Dose: 5,000 unit Admin: 07/01/18 21:02 Dose: 5,000 unit Heparin Sodium (Porcine) (Heparin Flush) [address] [facility] Last Admin: 07/05/18 09:43 Dose: 2 ml Admin: 07/04/18 20:21 Dose: 2 ml Admin: 07/04/18 09:30 Dose: 2 ml Admin: 07/03/18 20:44 Dose: 2 ml Comments: 2 ml per port per protocol Admin: 07/03/18 12:43 Dose: 2 ml Admin: 07/03/18 11:44 Dose: 2 ml Admin: 07/02/18 22:54 Dose: 2 ml Comments: 2ml per port per protocol Admin: 07/02/18 09:32 Dose: 2 ml Admin: 07/01/18 21:04 Dose: Hydrogen Peroxide/Benzyl Alcohol (Hydrogen Peroxide) 474 ml TOPICAL UD PRN PRN Reason: DRESSING CHANGES Ceftriaxone Sodium 2 gm/ (Dextrose) 50 mls @ 100 mls/hr IV Q24H [facility] Last Admin: 07/05/18 12:38 Dose: 100 mls/hr Insulin Glargine (Lantus) [address] [facility] Last Admin: 07/05/18 09:41 Dose: 20 unit Admin: 07/04/18 20:22 Dose: 20 unit Admin: 07/04/18 09:27 Dose: 20 unit Admin: 07/03/18 20:50 Dose: 20 unit Admin: 07/03/18 09:00 Dose: Admin: 07/02/18 22:54 Dose: 20 unit Admin: 07/02/18 09:32 Dose: Admin: 07/01/18 21:18 Dose: 20 unit Insulin Human Lispro (Humalog) 0 unit SQ ACHS [facility]; Protocol Last Admin: 07/05/18 12:35 Dose: 4 unit Admin: 07/05/18 09:40 Dose: Not Given Non-Admin Reason: No Coverage Needed Admin: 07/04/18 20:21 Dose: 6 unit Admin: 07/04/18 17:18 Dose: 4 unit Admin: 07/04/18 12:24 Dose: 2 unit Admin: 07/04/18 07:06 Dose: Not Given Non-Admin Reason: No Coverage Needed Admin: 07/03/18 20:49 Dose: 4 unit Admin: 07/03/18 16:00 Dose: Not Given Non-Admin Reason: NPO Admin: 07/03/18 12:01 Dose: 6 unit Admin: 07/03/18 06:48 Dose: Admin: 07/02/18 22:54 Dose: 10 unit Admin: 07/02/18 17:02 Dose: 8 unit Admin: 07/02/18 12:13 Dose: Admin: 07/02/18 07:19 Dose: 4 unit Admin: 07/01/18 21:17 Dose: 4 unit Admin: 07/01/18 19:25 Dose: 4 unit Admin: 07/01/18 12:16 Dose: 6 unit Lisinopril (Zestril) 20 mg PO DAILY [facility] Lorazepam (Ativan) 0.5 - 1 mg PO BIDP PRN PRN Reason: ANXIETY/SEDATION Last Admin: 07/04/18 07:07 Dose: 1 mg Admin: 07/03/18 06:58 Dose: 1 mg Lorazepam (Ativan) 1 mg IV UD PRN PRN Reason: ANXIETY/SEDATION Metoclopramide HCl (Reglan) 5 mg IV Q8HP PRN PRN Reason: Nausea Last Admin: 07/04/18 14:43 Dose: 5 mg Admin: 07/03/18 15:42 Dose: 5 mg Metronidazole (Flagyl) 500 mg PO Q8 [facility] Morphine Sulfate (Morphine) 2 mg IV Q4HP PRN PRN Reason: PAIN LEVEL > 6 Last Admin: 07/01/18 17:42 Dose: 2 mg Admin: 07/01/18 14:03 Dose: 2 mg Morphine Sulfate (Morphine) 4 mg IV Q2HP PRN PRN Reason: PAIN LEVEL > 6 Last Admin: 07/05/18 05:37 Dose: 4 mg Admin: 07/04/18 09:24 Dose: 4 mg Admin: 07/04/18 05:08 Dose: 4 mg Admin: 07/04/18 02:46 Dose: 4 mg Admin: 07/03/18 23:58 Dose: 4 mg Admin: 07/03/18 22:07 Dose: 4 mg Admin: 07/03/18 20:19 Dose: 4 mg Morphine Sulfate (Morphine) 15 - 30 mg PO Q6HP PRN PRN Reason: PAIN LEVEL 3-6 Last Admin: 07/05/18 12:36 Dose: 15 mg Naloxone HCl (Narcan) 0.1 mg IV Q2MIN PRN PRN Reason: Opiate Reversal Ondansetron HCl (Zofran) 4 mg IV Q6HP PRN PRN Reason: Nausea And Vomiting Last Admin: 07/04/18 11:47 Dose: 4 mg Admin: 07/03/18 07:07 Dose: 4 mg Admin: 07/02/18 09:30 Dose: 4 mg Admin: 07/01/18 23:56 Dose: 4 mg Admin: 07/01/18 17:10 Dose: 4 mg Admin: 07/01/18 14:03 Dose: 4 mg Oxycodone HCl (Roxicodone) 5 mg PO Q4HP PRN PRN Reason: PAIN LEVEL 3-6 Last Admin: 07/04/18 07:25 Dose: 5 mg Admin: 07/04/18 01:28 Dose: 5 mg Admin: 07/03/18 21:05 Dose: 5 mg Admin: 07/03/18 08:11 Dose: 5 mg Admin: 07/01/18 14:02 Dose: 5 mg Pantoprazole Sodium (Protonix) 40 mg IV QAMAC [facility] Last Admin: 07/05/18 07:29 Dose: 40 mg Admin: 07/04/18 07:08 Dose: 40 mg Admin: 07/03/18 06:57 Dose: 40 mg Admin: 07/02/18 09:30 Dose: 40 mg Senna (Senokot) 2 tab PO [facility] Last Admin: 07/04/18 20:20 Dose: 2 tab Admin: 07/03/18 22:03 Dose: Not Given Non-Admin Reason: Loose Stool Admin: 07/02/18 23:10 Dose: Not Given Non-Admin Reason: Loose Stool Admin: 07/01/18 21:02 Dose: 2 tab Sodium Chloride (Saline Flush) 10 ml IV UD PRN PRN Reason: FLUSH Last Admin: 07/03/18 15:43 Dose: 10 ml Admin: 07/03/18 11:44 Dose: 10 ml Admin: 07/03/18 07:08 Dose: 10 ml Admin: 07/03/18 06:58 Dose: 10 ml Admin: 07/02/18 12:11 Dose: 10 ml Admin: 07/02/18 11:16 Dose: 10 ml Admin: 07/02/18 09:40 Dose: 10 ml Admin: 07/01/18 17:57 Dose: 10 ml Sodium Chloride (Saline Flush) [address] [facility] Last Admin: 07/05/18 05:35 Dose: 10 ml Admin: 07/04/18 20:22 Dose: Not Given Non-Admin Reason: Duplicate Admin: 07/04/18 14:41 Dose: 10 ml Admin: 07/04/18 06:54 Dose: 10 ml Admin: 07/03/18 22:20 Dose: 10 ml Admin: 07/03/18 15:48 Dose: Admin: 07/03/18 05:16 Dose: 10 ml Admin: 07/02/18 22:55 Dose: 10 ml Admin: 07/02/18 16:01 Dose: Admin: 07/02/18 05:55 Dose: 10 ml Admin: 07/01/18 21:05 Dose: 10 ml Admin: 07/01/18 14:04 Dose: 10 ml Sodium Chloride (Saline Flush) 10 ml IV Q12 [facility] Last Admin: 07/05/18 09:43 Dose: 10 ml Admin: 07/04/18 20:20 Dose: 10 ml Admin: 07/04/18 09:49 Dose: 10 ml Admin: 07/03/18 22:20 Dose: 10 ml Admin: 07/03/18 12:10 Dose: 10 ml Admin: 07/02/18 22:55 Dose: 10 ml Admin: 07/02/18 09:30 Dose: 10 ml Admin: 07/01/18 21:05 Dose: Not Given Non-Admin Reason: Duplicate Assessment and Plan - Narrative A/P Narrative: Assessment: 1. Necrotic skin and soft tissue infection of the left forefoot with involvement of underlying bone: -Postoperative day 2 after Lt TMA Wound cultures growing group B strep and Prevotella spp 2. No sepsis 3. Uncontrolled diabetes with peripheral neuropathy: A1C ~13 4. New onset papulo-nodular rash over extremities, trunk: no mucosal involvement - unsure of what caused it. A typical penicillin rash is maculopapular, associated with itching - will stop ZOsyn (a penicillin) and switch to Ceftriaxone (cephalosporin) and metronidazole Recommendations: Zosyn stopped. Started IV Ceftriaxone 2 gm q24 through Lt arm PICC line and oral Metronidazole 500 mg q8 hrs, day 2 of antibiotics - will plan to continue antibiotics for 4 weeks, with subseq duration based on follow up - Continue Wound vac with planning for outpatient wound care follow up - if the rash worsens, consider skin biopsy for pathology - ID follow up as follows: ID clinic appt. on 07/18/18 at 11 am Follow up labs: CBC and BMP once weekly, ESR and CRP every other week Romario Domingo MD Infectious disease
[2018-07-05] MEDS: metroNIDAZOLE 500 MG TABLET PO SCH ×2 (14:35→21:32)
[2018-07-05] MEDS: METOCLOPRAMIDE 10 MG/2 ML VIAL IV PRN (18:13)
[2018-07-05] MEDS: SENNOSIDES 1 TABLET PO SCH (21:32)
[2018-07-05] MEDS: LORazepam 1 MG TABLET PO PRN (21:33)
[2018-07-05] MEDS ORDERED: GABAPENTIN 100 MG CAPSULE PO ONE ×2 (21:58→22:15)
[2018-07-05] MEDS ORDERED: LORazepam 1 MG TABLET PO PRN (23:02)
[2018-07-06] MEDS: oxyCODONE HCL 5 MG TABLET PO PRN (02:08)
[2018-07-06] MEDS: metroNIDAZOLE 500 MG TABLET PO SCH ×2 (05:10→14:50)
[2018-07-06] MEDS: 0.9 % SODIUM CHLORIDE 10 ML SYRINGE IV SCH ×3 (05:10→14:53)
[2018-07-06 06:55] LABS: Basophils # (Auto) 0 K/mcL (0.0-0.3); Basophils % (Auto) 0.4 % (0.0-2.0); Eosinophils # (Auto) 0.4 K/mcL (0.0-0.7); Eosinophils % (Auto) 3.2 % (0.0-7.0); Granulocytes % (Auto) 79.9 % (38.0-78.0); Lymphocytes # (Auto) 1.4 K/mcL (1.5-4.8); Lymphocytes % (Auto) 12.3 % (15.5-49.0); Mean Cell Volume 84.3 fL (80.0-100.0); Mean Corpuscular HGB Conc 32.9 g/dL (31.0-36.0); Mean Corpuscular Hemoglobin 27.7 pg (26.0-34.0); Monocytes # (Auto) 0.5 K/mcL (0.1-0.9); Monocytes % (Auto) 4.2 % (1.0-12.0); Platelet Count 298 K/mcL (140-440); Red Cell Distribution Width 14.7 % (11.5-14.5)
[2018-07-06] MEDS: PANTOPRAZOLE 40 MG VIAL IV SCH (07:15)
[2018-07-06] MEDS: HYDROcodone/APAP 10/325MG TABLET PO PRN ×2 (07:22→15:02)
[2018-07-06 07:26] LABS: ALT/SGPT 13 U/l (0-40); Albumin 2.9 gm/dL (3.2-5.2); Albumin/Globulin Ratio 0.7 (1.0-2.3); Alkaline Phosphatase 100 U/L (39-117); Blood Urea Nitrogen 18 mg/dl (6-20)
[2018-07-06] MEDS: INSULIN LISPRO 1 UNIT/0.01 ML UNIT SQ SCH ×2 (07:27→11:36)
[2018-07-06] MEDS: buPROPion 150 MG TAB.XL.24H PO SCH (08:53)
[2018-07-06] MEDS: ESCITALOPRAM 20 MG TABLET PO SCH (08:53)
[2018-07-06] MEDS: GABAPENTIN 100 MG CAPSULE PO SCH ×2 (08:53→14:41)
[2018-07-06] MEDS: HEPARIN 5,000 UNIT/ML VIAL SQ SCH (08:54)
[2018-07-06] MEDS: INSULIN GLARGINE, HUMAN 1 UNIT/0.01 ML SQ SCH (08:54)
[2018-07-06] MEDS ORDERED: LISINOPRIL 20 MG TABLET PO SCH (09:00)
[2018-07-06] MEDS: cefTRIAXone 2 GM in DEXTROSE 5% IN WATER 50 ML IV SCH (09:06)
--- NOTE | 2018-07-06 09:44 | Infectious Disease Prog Note ---
Subjective Patient information: Note initiated : 07/06/18 at 9:33 am Service Date, if different from initiated Date: [] Patient: Francesca Leon 52 y/o F admitted on 06/27/18 for Left Foot Ulcer. Chief Complaint: [] Principal diagnosis: osteomyelitis with necrotizing infection of left foot Interval history: Patient is doing fine. Feels her rash is getting more red. Denies any vomiting , diarrhea, fever. Foot pain is controlled. Her wound VAC was taken out today as there was minimal drainage. Objective Objective Narrative: Alert and oriented x3 No thrush Chest clear to auscultation with decreased breath sounds at bases Heart sounds normal No pedal edema Left foot stump: Wrapped in dressing: On looking and pictures the suture seems well approximated with minimal serous drainage - Vital Signs Vital signs: Vital Signs Temp Pulse Resp BP BP Pulse Ox 07/06/18 06:28 36.4 C 16 120/64 95 07/06/18 04:02 36.3 C 72 14 104/64 94 07/05/18 23:56 36.9 C 74 16 104/62 92 07/05/18 22:33 14 93 07/05/18 20:00 36.9 C 80 18 109/67 92 07/05/18 16:00 36.7 C 71 18 131/80 94 07/05/18 11:26 35.8 C L 70 19 152/90 97 Intake and Output 07/05/18 07/06/18 07/06/18 21:59 05:59 13:59 Intake Total 290 / 290 560 / 560 Output Total 1225 / 1225 600 / 600 575 / 575 Balance -935 / -935 -40 / -40 -575 / -575 Intake: IV 50 / 50 Rocephin 2 gm In Dextrose 5% in 50 / 50 Water 50 ml @ 100 mls/hr IV Q24H [facility] Rx#:[id number] Oral 240 / 240 560 / 560 Output: Void Amount 1225 / 1225 600 / 600 575 / 575 Other: Meal HS snack Percent of Meal Consumed 100% Feeding Ability Independent Urine Appearance Cloudy Cloudy Urine Color Bright Yellow Bright Yellow Pale Urine Odor Normal Normal Strong Weight 150.593 kg Intake & Output: Intake & Output 07/05/18 07/06/18 07/06/18 21:59 05:59 13:59 Intake Total 290 / 290 560 / 560 Output Total 1225 / 1225 600 / 600 575 / 575 Balance -935 / -935 -40 / -40 -575 / -575 Weight 150.593 kg Intake: IV 50 / 50 Rocephin 2 gm In Dextrose 5% in 50 / 50 Water 50 ml @ 100 mls/hr IV Q24H [facility] Rx#:[id number] Oral 240 / 240 560 / 560 Output: Void Amount 1225 / 1225 600 / 600 575 / 575 Other: Meal HS snack Percent of Meal Consumed 100% Feeding Ability Independent Urine Appearance Cloudy Cloudy Urine Color Bright Yellow Bright Yellow Pale Urine Odor Normal Normal Strong - Lab 07/06/18 05:32 07/06/18 05:32 Most recent lab results Calcium 8.4 mg/dl (8.6-10.4) L 07/06/18 05:32 Phosphorus 5.4 mg/dL (2.7-4.5) H 07/04/18 04:30 Magnesium 2.2 mg/dL (1.6-2.5) 07/04/18 04:30 Microbiology 06/29/18 14:39 Foot - Left Acid Fast Bacilli Culture & Smear - Preliminary 07/03/18 19:25 Foot - Left Gram Stain - Final 07/03/18 19:25 Foot - Left Anaerobic Culture - Preliminary 07/03/18 19:25 Foot - Left Gram Stain - Final 07/03/18 19:25 Foot - Left Wound Culture - Final 06/29/18 14:39 Foot - Left Fungal Smear - Final 06/29/18 14:39 Foot - Left Fungal Culture - Preliminary 06/29/18 14:40 Foot - Left Gram Stain - Final 06/29/18 14:40 Foot - Left Gram Stain - Final 06/29/18 14:40 Foot - Left Anaerobic Culture - Preliminary Prevotella species 06/29/18 14:40 Foot - Left Gram Stain - Final 06/29/18 14:40 Foot - Left Wound Culture - Final Strep agalactiae - (group b) 06/27/18 13:30 Blood Blood Culture - Final 06/27/18 13:30 Blood Blood Culture - Final 06/27/18 15:40 Foot - Left Gram Stain - Final 06/27/18 15:40 Foot - Left Wound Culture - Final Strep agalactiae - (group b) Medications Active Medications: Acetaminophen (Tylenol) 650 mg PO Q6HP PRN PRN Reason: PAIN/FEVER > 101 Last Admin: 07/06/18 02:07 Dose: 650 mg Hydrocodone Bitart/Acetaminophen (Ostrander 10/325mg) 1 - 2 tab PO Q4-6HP PRN PRN Reason: Pain Last Admin: 07/06/18 07:22 Dose: 1 tab Admin: 07/05/18 17:58 Dose: 1 tab Admin: 07/05/18 04:31 Dose: 2 tab Admin: 07/04/18 20:43 Dose: 2 tab Admin: 07/04/18 14:42 Dose: 2 tab Admin: 07/04/18 04:57 Dose: 2 tab Admin: 07/03/18 22:08 Dose: 2 tab Albuterol Sulfate (Ventolin) 2.5 mg NEB Q2HP PRN PRN Reason: Shortness Of Breath Bupropion HCl (Wellbutrin Xl) 150 mg PO DAILY [facility] Last Admin: 07/06/18 08:53 Dose: 150 mg Admin: 07/05/18 09:42 Dose: 150 mg Admin: 07/04/18 09:29 Dose: 150 mg Admin: 07/03/18 11:40 Dose: 150 mg Admin: 07/02/18 09:31 Dose: 150 mg Dextrose (Dextrose 50%) 0 ml IV UD PRN PRN Reason: Hypoglycemia Diagnostic Test (Pha) (Accu-Chek) 1 each FS ACHS [facility] Last Admin: 07/06/18 07:26 Dose: 1 each Admin: 07/05/18 21:09 Dose: 1 each Admin: 07/05/18 17:08 Dose: 1 each Admin: 07/05/18 16:55 Dose: 1 each Admin: 07/05/18 12:04 Dose: 1 each Admin: 07/05/18 07:34 Dose: 1 each Admin: 07/04/18 20:01 Dose: 1 each Admin: 07/04/18 17:07 Dose: 1 each Admin: 07/04/18 11:56 Dose: 1 each Admin: 07/04/18 07:04 Dose: 1 each Admin: 07/03/18 20:26 Dose: 1 each Admin: 07/03/18 16:00 Dose: 1 each Admin: 07/03/18 11:45 Dose: 1 each Admin: 07/03/18 06:47 Dose: 1 each Admin: 07/02/18 22:53 Dose: 1 each Admin: 07/02/18 16:47 Dose: 1 each Admin: 07/02/18 12:13 Dose: 1 each Admin: 07/02/18 07:10 Dose: 1 each Admin: 07/01/18 21:03 Dose: 1 each Admin: 07/01/18 17:56 Dose: 1 each Admin: 07/01/18 12:16 Dose: 1 each Escitalopram Oxalate (Lexapro) 20 mg PO DAILY [facility] Last Admin: 07/06/18 08:53 Dose: 20 mg Admin: 07/05/18 09:42 Dose: 20 mg Admin: 07/04/18 09:29 Dose: 20 mg Admin: 07/03/18 11:41 Dose: 20 mg Admin: 07/02/18 09:31 Dose: 20 mg Gabapentin (Neurontin) 100 mg PO TID [facility] Last Admin: 07/06/18 08:53 Dose: 100 mg Glucose (Insta-Glucose) 15 gm PO PRN PRN PRN Reason: Hypoglycemia Heparin Sodium (Porcine) (Heparin) 5,000 unit SQ Q12 [facility] Last Admin: 07/06/18 08:54 Dose: 5,000 unit Admin: 07/05/18 21:31 Dose: 5,000 unit Admin: 07/05/18 09:42 Dose: 5,000 unit Admin: 07/04/18 20:19 Dose: 5,000 unit Admin: 07/04/18 09:28 Dose: 5,000 unit Admin: 07/03/18 20:50 Dose: 5,000 unit Admin: 07/03/18 11:41 Dose: 5,000 unit Admin: 07/02/18 22:53 Dose: 5,000 unit Admin: 07/02/18 09:31 Dose: 5,000 unit Admin: 07/01/18 21:02 Dose: 5,000 unit Heparin Sodium (Porcine) (Heparin Flush) 2 ml IV Q12 [facility] Last Admin: 07/06/18 09:00 Dose: 2 ml Admin: 07/05/18 21:31 Dose: 2 ml Admin: 07/05/18 09:43 Dose: 2 ml Admin: 07/04/18 20:21 Dose: 2 ml Admin: 07/04/18 09:30 Dose: 2 ml Admin: 07/03/18 20:44 Dose: 2 ml Comments: 2 ml per port per protocol Admin: 07/03/18 12:43 Dose: 2 ml Admin: 07/03/18 11:44 Dose: 2 ml Admin: 07/02/18 22:54 Dose: 2 ml Comments: 2ml per port per protocol Admin: 07/02/18 09:32 Dose: 2 ml Admin: 07/01/18 21:04 Dose: Hydrogen Peroxide/Benzyl Alcohol (Hydrogen Peroxide) 474 ml TOPICAL UD PRN PRN Reason: DRESSING CHANGES Ceftriaxone Sodium 2 gm/ (Dextrose) 50 mls @ 100 mls/hr IV Q24H [facility] Last Admin: 07/06/18 09:06 Dose: 100 mls/hr Infusion: 07/05/18 16:10 Dose: 0 mls/hr Admin: 07/05/18 12:38 Dose: 100 mls/hr Insulin Glargine (Lantus) 20 unit SQ BID [facility] Last Admin: 07/06/18 08:54 Dose: 20 unit Admin: 07/05/18 21:31 Dose: 20 unit Admin: 07/05/18 09:41 Dose: 20 unit Admin: 07/04/18 20:22 Dose: 20 unit Admin: 07/04/18 09:27 Dose: 20 unit Admin: 07/03/18 20:50 Dose: 20 unit Admin: 07/03/18 09:00 Dose: Admin: 07/02/18 22:54 Dose: 20 unit Admin: 07/02/18 09:32 Dose: Admin: 07/01/18 21:18 Dose: 20 unit Insulin Human Lispro (Humalog) 0 unit SQ ACHS [facility]; Protocol Last Admin: 07/06/18 07:27 Dose: Not Given Non-Admin Reason: No Coverage Needed Admin: 07/05/18 21:09 Dose: Not Given Non-Admin Reason: No Coverage Needed Admin: 07/05/18 17:08 Dose: Not Given Non-Admin Reason: Labs Outside of Range Admin: 07/05/18 12:35 Dose: 4 unit Admin: 07/05/18 09:40 Dose: Not Given Non-Admin Reason: No Coverage Needed Admin: 07/04/18 20:21 Dose: 6 unit Admin: 07/04/18 17:18 Dose: 4 unit Admin: 07/04/18 12:24 Dose: 2 unit Admin: 07/04/18 07:06 Dose: Not Given Non-Admin Reason: No Coverage Needed Admin: 07/03/18 20:49 Dose: 4 unit Admin: 07/03/18 16:00 Dose: Not Given Non-Admin Reason: NPO Admin: 07/03/18 12:01 Dose: 6 unit Admin: 07/03/18 06:48 Dose: Admin: 07/02/18 22:54 Dose: 10 unit Admin: 07/02/18 17:02 Dose: 8 unit Admin: 07/02/18 12:13 Dose: Admin: 07/02/18 07:19 Dose: 4 unit Admin: 07/01/18 21:17 Dose: 4 unit Admin: 07/01/18 19:25 Dose: 4 unit Admin: 07/01/18 12:16 Dose: 6 unit Lisinopril (Zestril) 20 mg PO DAILY [facility] Last Admin: 07/06/18 08:54 Dose: 20 mg Lorazepam (Ativan) 0.5 - 1 mg PO BIDP PRN PRN Reason: ANXIETY/SEDATION Metoclopramide HCl (Reglan) 5 mg IV Q8HP PRN PRN Reason: Nausea Last Admin: 07/05/18 18:13 Dose: 5 mg Admin: 07/04/18 14:43 Dose: 5 mg Admin: 07/03/18 15:42 Dose: 5 mg Metronidazole (Flagyl) 500 mg PO Q8 [facility] Last Admin: 07/06/18 05:10 Dose: 500 mg Admin: 07/05/18 21:32 Dose: 500 mg Admin: 07/05/18 14:35 Dose: 500 mg Morphine Sulfate (Morphine) 2 mg IV Q4HP PRN PRN Reason: PAIN LEVEL > 6 Last Admin: 07/01/18 17:42 Dose: 2 mg Admin: 07/01/18 14:03 Dose: 2 mg Morphine Sulfate (Morphine) 4 mg IV Q2HP PRN PRN Reason: PAIN LEVEL > 6 Last Admin: 07/06/18 07:16 Dose: 4 mg Admin: 07/05/18 17:57 Dose: 4 mg Admin: 07/05/18 05:37 Dose: 4 mg Admin: 07/04/18 09:24 Dose: 4 mg Admin: 07/04/18 05:08 Dose: 4 mg Admin: 07/04/18 02:46 Dose: 4 mg Admin: 07/03/18 23:58 Dose: 4 mg Admin: 07/03/18 22:07 Dose: 4 mg Admin: 07/03/18 20:19 Dose: 4 mg Morphine Sulfate (Morphine) 15 - 30 mg PO Q6HP PRN PRN Reason: PAIN LEVEL 3-6 Last Admin: 07/05/18 21:33 Dose: 30 mg Admin: 07/05/18 12:36 Dose: 15 mg Naloxone HCl (Narcan) 0.1 mg IV Q2MIN PRN PRN Reason: Opiate Reversal Ondansetron HCl (Zofran) 4 mg IV Q6HP PRN PRN Reason: Nausea And Vomiting Last Admin: 07/04/18 11:47 Dose: 4 mg Admin: 07/03/18 07:07 Dose: 4 mg Admin: 07/02/18 09:30 Dose: 4 mg Admin: 07/01/18 23:56 Dose: 4 mg Admin: 07/01/18 17:10 Dose: 4 mg Admin: 07/01/18 14:03 Dose: 4 mg Oxycodone HCl (Roxicodone) 5 mg PO Q4HP PRN PRN Reason: PAIN LEVEL 3-6 Last Admin: 07/06/18 02:08 Dose: 5 mg Admin: 07/04/18 07:25 Dose: 5 mg Admin: 07/04/18 01:28 Dose: 5 mg Admin: 07/03/18 21:05 Dose: 5 mg Admin: 07/03/18 08:11 Dose: 5 mg Admin: 07/01/18 14:02 Dose: 5 mg Pantoprazole Sodium (Protonix) 40 mg IV QAMAC [facility] Last Admin: 07/06/18 07:15 Dose: 40 mg Admin: 07/05/18 07:29 Dose: 40 mg Admin: 07/04/18 07:08 Dose: 40 mg Admin: 07/03/18 06:57 Dose: 40 mg Admin: 07/02/18 09:30 Dose: 40 mg Senna (Senokot) 2 tab PO HS [facility] Last Admin: 07/05/18 21:32 Dose: 2 tab Admin: 07/04/18 20:20 Dose: 2 tab Admin: 07/03/18 22:03 Dose: Not Given Non-Admin Reason: Loose Stool Admin: 07/02/18 23:10 Dose: Not Given Non-Admin Reason: Loose Stool Admin: 07/01/18 21:02 Dose: 2 tab Sodium Chloride (Saline Flush) 10 ml IV UD PRN PRN Reason: FLUSH Last Admin: 07/03/18 15:43 Dose: 10 ml Admin: 07/03/18 11:44 Dose: 10 ml Admin: 07/03/18 07:08 Dose: 10 ml Admin: 07/03/18 06:58 Dose: 10 ml Admin: 07/02/18 12:11 Dose: 10 ml Admin: 07/02/18 11:16 Dose: 10 ml Admin: 07/02/18 09:40 Dose: 10 ml Admin: 07/01/18 17:57 Dose: 10 ml Sodium Chloride (Saline Flush) 10 ml IV Q8 [facility] Last Admin: 07/06/18 05:10 Dose: 10 ml Admin: 07/05/18 21:33 Dose: Admin: 07/05/18 14:35 Dose: 10 ml Admin: 07/05/18 05:35 Dose: 10 ml Admin: 07/04/18 20:22 Dose: Not Given Non-Admin Reason: Duplicate Admin: 07/04/18 14:41 Dose: 10 ml Admin: 07/04/18 06:54 Dose: 10 ml Admin: 07/03/18 22:20 Dose: 10 ml Admin: 07/03/18 15:48 Dose: Admin: 07/03/18 05:16 Dose: 10 ml Admin: 07/02/18 22:55 Dose: 10 ml Admin: 07/02/18 16:01 Dose: Admin: 07/02/18 05:55 Dose: 10 ml Admin: 07/01/18 21:05 Dose: 10 ml Admin: 07/01/18 14:04 Dose: 10 ml Sodium Chloride (Saline Flush) 10 ml IV Q12 [facility] Last Admin: 07/05/18 21:32 Dose: 10 ml Admin: 07/05/18 09:43 Dose: 10 ml Admin: 07/04/18 20:20 Dose: 10 ml Admin: 07/04/18 09:49 Dose: 10 ml Admin: 07/03/18 22:20 Dose: 10 ml Admin: 07/03/18 12:10 Dose: 10 ml Admin: 07/02/18 22:55 Dose: 10 ml Admin: 07/02/18 09:30 Dose: 10 ml Admin: 07/01/18 21:05 Dose: Not Given Non-Admin Reason: Duplicate Assessment and Plan - Narrative A/P Narrative: Assessment: 1. Necrotic skin and soft tissue infection of the left forefoot with involvement of underlying bone: -Postoperative day 3 after Lt TMA Wound cultures growing group B strep and Prevotella spp 2. No sepsis 3. Uncontrolled diabetes with peripheral neuropathy: A1C ~13 4. New onset papulo-nodular rash over extremities, trunk: no mucosal involvement - unsure of what caused it. A typical penicillin rash is maculopapular, associated with itching Recommendations: Continue IV Ceftriaxone 2 gm q24 through Lt arm PICC line and oral Metronidazole 500 mg q8 hrs, day 3 of antibiotics - will plan to continue antibiotics for 4 weeks, with subseq duration based on follow up - Wound vac per surgery. Patient will benefit from outpatient wound care follow up - if the rash worsens as outpatient, consider PCP referral to dermatology and skin biopsy for pathology - ID follow up as follows: ID clinic appt. on 07/18/18 at 11 am Follow up labs: CBC and BMP once weekly, ESR and CRP every other week Romario Domingo MD Infectious disease
--- NOTE | 2018-07-06 13:56 | Consultation ---
DATE OF CONSULTATION: 07/06/2018 CHIEF COMPLAINT: The patient is a 52-year-old woman seen in consultation at the request of Dr. Grover from the hospitalist service for a left foot wound. HISTORY OF PRESENT ILLNESS: The patient is a 52-year-old woman with a history of diabetes mellitus who has had issues with a diabetic foot ulcer that initially started about 2 months ago when she stepped on a tack. She was receiving local wound care from a local rail project engineer, but the wound continued to worsen despite wound care. She underwent debridement of this wound with the persistence of infection and swelling. She was subsequently seen in the emergency department on 06/27 and admitted for a left foot infection. The patient has since admission undergone a transmetatarsal amputation of the left foot for treatment of her diabetic foot ulcer and infection. Surgery was performed on July 08, 3 days ago, by Dr. Rodrigues assisted by Dr. Chu from Podiatry. The wound was closed at the time of surgery. Initially a wound V.A.C. was placed but the V.A.C. has been ordered to be stopped with SilvaSorb dressing to the wound and wound care consult requested for further management of the remaining surgical wound. PAST MEDICAL HISTORY: Hypertension, diabetes mellitus, morbid obesity, status post cholecystectomy. SOCIAL HISTORY: The patient is a smoker. She denies current alcohol use. She denies recreational drug use. She is and lives in [place] with her who has helped her with her foot wounds in the past. HOME MEDICATIONS: 1. Lexapro. 2. Amaryl. 3. Lantus insulin. 4. Zestril. 5. Wellbutrin. ALLERGIES: DILAUDID. PHYSICAL EXAMINATION: VITAL SIGNS: Temperature 97.6, pulse 79, blood pressure 104/64. GENERAL: The patient is a well-developed, well-nourished, obese woman sitting in her hospital bed. She is in no distress. She has just had the left foot undressed which on focused examination of the left lower extremity shows edema of the remaining forefoot with some mild erythema extending on the dorsum and plantar surface of the forefoot, but not extending into the ankle or the heel. Sutures are in place with the wound well approximated without any active drainage noted coming from the wound. Edema is present in the area of erythema of the forefoot, presumably from the residual inflammation. LABS AND STUDIES: A CBC drawn today shows a white blood cell count of 11.8, hemoglobin 10, hematocrit 30.4 and a platelet count of 298, 79% granulocytes noted. Serum chemistries show sodium of 140, potassium 4.4, chloride 99, CO2 32, anion gap 9.0, BUN 18, creatinine 1.6, calcium 8.4. AST, ALT and alkaline phosphatase are 11, 13 and 100, respectively. Albumin is 2.9. ASSESSMENT AND PLAN: Left diabetic foot wound status post transmetatarsal amputation with primary closure. Wound shows signs of residual inflammation, possibly infection. However, patient is currently on antibiotics for this. She states that she is supposed to go home on oral antibiotics. Per surgical service, the patient is due for discharge today. She will [facility], 3 days from now for followup of the wound and continued management as she is at high risk of reopening of the wound due to the underlying comorbidities. [email or web address] Job ID: [id number] Doc ID: [id number] Milla Wilson MD
--- NOTE | 2018-07-06 14:10 | Discharge Summary ---
Medical - DS: Prov Patient information: Note initiated : 07/06/18 at 2:04 pm Service Date, if different from initiated Date: [] Patient: Francesca Leon 52 y/o F admitted on 06/27/18 for Left Foot Ulcer. Date of admission: 06/27/18 15:53 Discharge date: 07/06/18 Primary care physician: Yvonne Palm Admitting clinician: Liv Castellon Consults: 06/27/18 15:04 Consult to Physician [CONS] Stat Comment: Consulting Provider: Clive Chu Reason For Exam: Physician to Consult 06/27/18 15:07 Consult to Physician [CONS] Stat Comment: Consulting Provider: Liv Castellon Reason For Exam: Physician to Consult 06/27/18 16:47 Consult to Infectious Disease [CONS] Routine Comment: Consulting Provider: Romario Domingo Reason For Exam: Physician to Consult 07/05/18 06:34 Consult to Physician [CONS] Routine Comment: Consulting Provider: Romero Rodrigues Reason For Exam: Physician to Consult 07/06/18 08:23 Consult to Physician [CONS] Routine Comment: Consulting Provider: Milla Wilson Reason For Exam: Physician to Consult Discharging clinician: Lore Becerril Medical - DS: Meds - Discharge Medications Prescriptions: cefTRIAXone [Rocephin] 2 gm IV Q24H #25 vial Gabapentin [Neurontin] 100 mg PO TID #90 cap HYDROcodone/APAP 10/325MG [[place] 10-325Mg] 1 - 2 tab PO Q4-6HP PRN #30 tab PRN Reason: Pain Insulin Aspart [Novolog Flexpen] 1 - 14 unit SQ ACHS #1 insuln.pen metroNIDAZOLE [Flagyl] 500 mg PO Q8 #75 tab Active and Home Medications: Home Medications Escitalopram [Lexapro] 20 mg PO DAILY 06/27/18 [History Confirmed 06/27/18 Last Taken Unknown] Glimepiride [Amaryl] 2 mg PO DAILY 06/27/18 [History Confirmed 06/27/18 Last Taken Unknown] Insulin Glargine, Human [Lantus] 30 unit SQ HS 06/27/18 [History Confirmed 06/27 Last Taken Unknown] Insulin Glargine, Human [Lantus] 40 unit SQ DAILY 06/27/18 [History Confirmed Last Taken Unknown] Lisinopril [Zestril] 20 mg PO DAILY 06/27/18 [History Confirmed 06/27/18 Last Taken Unknown] buPROPion [Wellbutrin Xl] 150 mg PO DAILY 06/27/18 [History Confirmed 06/27/18 Last Taken Unknown] Medical - DS: Hosp Hospital course: Presentation: 06/27-Ms. Leon is a 52 year old F with h/o DM, presents to the ER today with complaints of left foot pain. The patient notes approximately 6 weeks ago she stepped on attack, resulting in a puncture wound. Initially they were trying to clean the wound by local wound care, the patient's wound progressed and the patient was followed by Dr. Bender, The patient according to the nuclear physics professor was walking with a tack in her shoe. The patient wound progressively got worse, with increasing redness swelling, increased smell. patient underwent debridement at his office, and was placed on doxycycline and ciprofloxacin, the patient notes that this did not help much and the swelling, infection continued to persist, the patient was started on clindamycin on 06/15/18. The patient on her follow up noted no significant improvement with worsening redness, discharge, patient was therefore asked to come to the hospital for IV antibiotics. The patient is accompanied by her , notes has DM, uncontrolled last a1c was 14. According to the notes of Dr Bender, pt has h/o MRSA Patient in the ER afebrile, HR 77, BP 111/68. 91% on RA Labs show WBC count of 16,800, hemoglobin 12.8 platelets 287. basic neg, glucose elevated to 282. ESR 98 CRP 18.9 and lactic acid is 1.4. Patient clinically appears quite stable is being admitted to the medical floor for further management. Dr Chu has been consulted who will be there to evaluate the patient. I spone with him and he will be here after clinic hours. The CT scan of the foot reviewed, there is gas noted in the tissues however the patient has an open ulcer and has had instrumentation done recently. She does have significant cellulitis positive drainage at this point. And is going to be evaluated by the surgeon soon. I do not believe that this is necrotizing fasciitis at this time given her hemodynamic stability and recent instrumentation which could easily explain the gas. She does have necrotizing soft tissue infection. Course: 06/28 Patient seen and examined no acute overnight events. Wound was in dressing today. She has no acute complaints or concerns. Glucose level high yesterday better today. MRI done today shows severe osteomyelitis cellulitis. Likely plan for surgery tomorrow. Ongoing vancomycin and Zosyn appreciate podiatry and infectious disease input 06/29 Patient seen examined, post op drowsy, a bit hypotensive, bolus x 1 given with good repsonse, another 1L ordered. Patient has post op pain, at the site of surgery, Patient glucose level low normal, being monitied, lantus on hold for now. 06/30 Patient seen and examined no acute overnight events. She was hypotensive yesterday responded well to fluid boluses. This morning again was reported that she was hypotensive. Blood gas was drawn mildly hypoxic and has some CO2 retention. PH of 7.30 patient has a history of sleep apnea has not been wearing a CPAP machine at home. Clinically does not appear to be septic but given that she has been hypotensive postop remove the patient to PCU status for closer monitoring Gomez was placed. Once the patient was moved to the PCU her blood pressure was noted to be normal patient has no chest pain no dizziness no palpitations no cough. 07/01 Patient seen and examined, no acute overnight events. Monitor on PCU status patient's blood pressure has remained stable with no evidence of sepsis or septic shock. Will move the patient back to medical floor. Creatinine 2.1 worsened today, likely secondary to drop in blood pressure as well as antibiotic use. Good urine output patient tolerating p.o. diet well monitor for now consider nephrology consult if it worsens further. Plan of care reviewed with Dr. Chu, I will try to see if wound care can arrange for hyperbaric treatment for this patient. 07/02 Patient seen examiend, no acute overnight issues on the medical floor. Plan to initiate Hyperbaric treatment for the patient USG for left lower extremity vascular evaluation. Dr Carbajal will be here on Monday, will initiate HBOT based on indications of Diabetic foot ulcer, Wagners Grade 3 with necrotizing infection. Patient was explained the risks and benefits of this procedure and she agrees for same She denies any emphysema, no shortness of breath ,no h/o CHF, no hearing issues , no sinus issues. Patient educated the procedure and need to be aware to clear her sinuses/ Valsalva maneuver during the dive. Start off with HBOT 2.5ATA for 90 mins with Air breaks per protocol. total for 10 treatments for now. first treatment today. I will be going off service today, Dr Abe Bell will be monitoring the HBOT treatments in my absence and Dr Carbajal will decide need for further treatments. I am allowing the glucose levels to be elevated as I expect these to drop during HBOT treatment. Ativan prn for anxiety labs show improving creatinine, 1.9 today 07/03 Patient seen and examined. Discussed with Dr. Chu on the phone this morning. During his exam of the wound yesterday evening, noted worsening wound margins and wound bed. Concern for need for amputation. Dr. Rodrigues has been consult it for further evaluation of the wound and consideration of amputation as well as what level. Patient tolerated HBOT better today after pre-session lorazepam. She is concerned about the possibility of having to have an amputation. 07/04 Now postop day #1 following left TMA after failed partial amputations of the first and second toes. Patient feels fatigued today. ID recommendations have been reviewed. Unclear if HBOT still indicated, attempting to clarify, though usual wound care physician is not in the office this week. Initially ordered as attempt to salvage the initial amputation, which is now failed. Discussed with the patient the need for good glucose control to promote healing , as well as to prevent further complications in the future. 07/05 Patient notes a new rash that's developed. It's nonpruritic. Isolated red nodules on the limbs, also on the back. No new medications. Also having intermittent postsurgical left foot pain. No dyspnea, no fever, no abdominal pain, no nausea. 07/06 Seen by wound care MD (Dr. Wilson), wound vac changed to dressings. Will f/u with wound care on Monday. ID has left recommendations, 2 g IV ceftriaxone daily as well as metronidazole 500 mg by mouth every 8 hours, today is day 3 of 28 antibiotics. She thinks the rash is a little redder today. Summary: 52-year-old female type 2 diabetes, presents with a nonhealing foot wound, secondary to stepping [place]. Found to have necrotizing soft tissue infection as well as osteomyelitis. Had partial limitation of first and second toes, however healing failed and subsequently had left TMA. To be discharged on long- term outpatient antibiotics, follow up with wound care and ID. Unclear as to etiology of the nodular rash, appears stable at discharge. If worsens, would refer to dermatology. Not felt to be secondary to a drug rash. ID Recommendations: Continue IV Ceftriaxone 2 gm q24 through Lt arm PICC line and oral Metronidazole 500 mg q8 hrs, day 3 of antibiotics - will plan to continue antibiotics for 4 weeks, with subsequent duration based on follow up - Wound vac per surgery [changed to dressings prior to discharge]. Patient will benefit from outpatient wound care follow up - If the rash worsens as outpatient, consider PCP referral to dermatology and skin biopsy for pathology - ID follow up as follows: ID clinic appt. on 07/18/18 at 11 am Follow up labs: CBC and BMP once weekly, ESR and CRP every other week Discharge diagnosis: Diabetic foot wound with soft tissue infection and osteomyelitis Secondary discharge diagnosis: Type 2 DM, uncontrolled, HbA1C 13.5% Rash, not a classic drug reaction, unclear etiology Hypotension- Resolved Acute Kidney injury- ATN vs medication related, resolved Hypertension VIVEK not using CPAP as dog chewed the mask, will require new sleep study as has been 2 years since last established with DME supplier Depression/Anxiety - Time Spent with Patient Total time spent providing and/or coordinating discharge services: Greater than 30 minutes Medical - DS: Exam - Constitutional Vitals: Vital Signs Temp Pulse Resp BP BP Pulse Ox 07/06/18 12:16 97.4 F 18 116/73 93 07/06/18 06:28 97.6 F 16 120/64 95 07/06/18 04:02 97.4 F 72 14 104/64 94 07/05/18 23:56 98.4 F 74 16 104/62 92 07/05/18 22:33 14 93 07/05/18 20:00 98.4 F 80 18 109/67 92 07/05/18 16:00 98.1 F 71 18 131/80 94 Intake and Output 07/06/18 07/06/18 07/06/18 05:59 13:59 21:59 Intake Total 560 / 560 Output Total 600 / 600 575 / 575 Balance -40 / -40 -575 / -575 Intake: Oral 560 / 560 Output: Void Amount 600 / 600 575 / 575 Other: Urine Appearance Cloudy Urine Color Bright Yellow Pale Urine Odor Normal Strong Additional comments: General: No acute distress, sleepy Chest: Clear, good aeration on current vascular: Regular Abdomen: Obese, soft Extremities: Left foot wound is dressed, dressing was dry Medical - DS: Data Procedures and tests throughout hospitalization: 06/29 Debridement of bone, muscle, fascia and skin- open/guillotine first and second partial ray amputation by Clive Chu DPM 07/03 Date of procedure: 07/03/18 Pre-op diagnosis: abscess with ulceration left foot Post-op diagnosis: same Procedure: left transmetatarsal amputation Grafts/Implants: No Anesthesia: GETA Surgeon: Romero Rodrigues Machine Buffer: Clive Chu Estimated blood loss (cc): 200 Tourniquet Time (Minutes): 20 Specimens Removed/Pathology: other (proximal second MT biopsy and culture) Labs on day of discharge: Labs from last 24 hours 07/06/18 07/06/18 05:32 05:32 WBC 11.8 H RBC 3.60 L Hgb 10.0 L Hct 30.4 L MCV 84.3 MCH 27.7 MCHC 32.9 RDW 14.7 H Plt Count 298 MPV 8.9 Gran % 79.9 H Lymph % (Auto) 12.3 L Mineral % (Auto) 4.2 Eos % (Auto) 3.2 Baso % (Auto) 0.4 Gran # 9.4 H Lymph # (Auto) 1.4 L Mineral # (Auto) 0.5 Eos # (Auto) 0.4 Baso # (Auto) 0 Sodium 140 Potassium 4.4 Chloride 99 Carbon Dioxide 32 H Anion Gap 9.0 BUN 18 Creatinine 1.6 H GFR Calculation 36 Glucose 100 Calcium 8.4 L Total Bilirubin 0.2 AST 11 ALT 13 Alkaline Phosphatase 100 Total Protein 7.3 Albumin 2.9 L Globulin 4.4 H Albumin/Globulin Ratio 0.7 L Microbiology 06/29/18 14:40 Foot - Left Gram Stain - Final 06/29/18 14:40 Foot - Left Gram Stain - Final 06/29/18 14:40 Foot - Left Anaerobic Culture - Final Prevotella species Peptococcus anaerobius 06/29/18 14:40 Foot - Left Gram Stain - Final 06/29/18 14:40 Foot - Left Wound Culture - Final Strep agalactiae - (group b) 07/03/18 19:25 Foot - Left Gram Stain - Final 07/03/18 19:25 Foot - Left Anaerobic Culture - Preliminary 07/03/18 19:25 Foot - Left Gram Stain - Final 07/03/18 19:25 Foot - Left Wound Culture - Final 06/29/18 14:39 Foot - Left Acid Fast Bacilli Culture & Smear - Preliminary 06/29/18 14:39 Foot - Left Fungal Smear - Final 06/29/18 14:39 Foot - Left Fungal Culture - Preliminary 06/27/18 13:30 Blood Blood Culture - Final 06/27/18 13:30 Blood Blood Culture - Final 06/27/18 15:40 Foot - Left Gram Stain - Final 06/27/18 15:40 Foot - Left Wound Culture - Final Strep agalactiae - (group b) - Impressions Date of Service: 06/27/18 Procedure(s): CT foot LT w con IMPRESSION: 1. 12 mm focus of osteolysis in the second proximal phalanx base with 8 mm focus of osteolysis in the plantar surface of the adjacent second metatarsal head most compatible with osteomyelitis. It is adjacent to a 16 mm cutaneous plantar ulcer which extends all the way to the second MTP joint space. Second MTP septic arthritis is noted and diffuse forefoot cellulitis. Gas seen in the adjacent soft tissues either atmospheric or, less likely, due to anaerobic infection. 2. Fracture of the third proximal phalanx likely chronic 3. Diffuse osteoporosis 4. Moderate hallux valgus, metatarsus abductus and second through fifth hammertoe deformities. Date of Service: 06/28/18 Procedure(s): MR foot LT wo con IMPRESSION: -Severe osteomyelitis involving the proximal half of the second proximal phalanx and also the adjacent fifth metatarsal head including the epiphysis and metaphysis. As noted on CT, there is actually osteolytic destruction of each regions. Septic arthritis the second MTP joint noted. There are no other regions of osteomyelitis throughout the foot or ankle. Severe plantar fasciitis and also cellulitis within the dorsal and plantar subcutaneous soft tissues of the forefoot. 3 mm cutaneous ulceration overlying the second MTP joint seen - as before -3 x 2 cm thin-walled fluid collection in the plantar fascia overlying the fifth MTP. Although it extends to the surface of the fifth MTP, there is no definite MRI evidence of osteomyelitis or septic arthritis. This may represent a sterile fluid collection such as a seroma or cyst. Date of Service: 06/27/18 Procedure(s): XR chest 1V portable IMPRESSION: Moderate stable cardiomegaly. No CHF or other acute process Medical - DS: A/P - Patient/Caregiver Discharge Instructions Activity: increase activity as tolerated (heel weight bearing on left foot) Diet: Consistent Carbohydrate Additional Instructions: Discharge Instructions: Wound care for at home: Cleanse Right foot surgical site daily with saline then apply Silvasorb gel to site. Dress with gauze pads and then wrap with gauze roll followed by applying SHARMILA bandage. Change this once a day. Follow up with [facility] on Monday07/09/18 at scheduled time. DO NOT BEAR FULL weight to surgical site. Heel weight bearing only with surgical shoe on. Do not smoke and utilize all resources to quit smoking. Keep tight control of blood sugars. You will need to follow up with your primary care doctor for another sleep study so that you can get supplies needed for your CPAP. This was per [employer] - the supplier for your equipment for CPAP. PICC packing line operator and dressing changes per [facility] protocol. Prescriptions: cefTRIAXone [Rocephin] 2 gm IV Q24H #25 vial Gabapentin [Neurontin] 100 mg PO TID #90 cap HYDROcodone/APAP 10/325MG [[place] 10-325Mg] 1 - 2 tab PO Q4-6HP PRN #30 tab PRN Reason: Pain Insulin Aspart [Novolog Flexpen] 1 - 14 unit SQ ACHS #1 insuln.pen metroNIDAZOLE [Flagyl] 500 mg PO Q8 #75 tab Other Amb Orders: Outpatient PICC Care Location: None Selected Wound Care Instructions Location: None Selected - Follow up Plan Follow up with: Romario Domingo MD [Physician] - 07/18/18 10:45 am Yvonne Palm MD [Primary Care Provider] - Eric Carbajal MD [Physician] - 07/09/18 1:00 pm (Check in at 12:45 pm for this appointment. Bring insurance cards and photo ID. Please bring the paperwork from the [facility] with you.) Disposition: Home, Self-Care Prognosis: Fair Rehab Potential: Fair Overall status at discharge: patient is not back to baseline Medical - DS: Qual - VTE Deep Vein Thrombosis/Pulmonary Embolism Present on Admission: No
== END 2018-07-06 15:25 | disposition home or self-care (01) | DRG 617 ==
LOC: ED 13:07 → MEDSUR 15:53 → SUATTDRO 15:53 → MEDSUR 16:00 → ICU 06-30 09:40 → MEDSUR 07-01 17:45
PROVIDERS: ADMIT Internal Medicine; ATTEND Internal Medicine
CPT/HCPCS: 80047; 83605; 85014; 97161; 97167; 99223; A4221; A6199; A6248; C1751; J0131; J0696; J1580; J1644; J1815; J1817; J2001; J2060; J2250; J2270; J2405; J2543; J2765; J2997; J3010; J3370; J7030; J7040; J7060; J7120; Q9967